=== PATIENT | female | born 1965 | race Caucasian/White ===

== ENCOUNTER → 2019-12-02 09:23 | Outpatient (BNVA) | payer OTHER, SELFPAY | PROVIDERS: PCP Internal Medicine; Visit Provider Surgery | DX: Z85.3 Personal history of malignant neoplasm of breast (principal); Z92.21 Personal history of antineoplastic chemotherapy; Z92.3 Personal history of irradiation | CPT/HCPCS: 99212 ==

== ENCOUNTER 2019-12-11 08:40 | Outpatient (REF) | payer OTHER, SELFPAY ==
[2019-12-11 10:22] LABS: Estimated Average Glucose 126 mg/dL
[2019-12-11 10:48] LABS: Alanine Aminotransferase 35 U/L (0-31); Anion Gap 13 (12-20); Aspartate Amino Transferase 20 U/L (5-31); Blood Urea Nitrogen 13 mg/dL (9-16); Calcium 8.5 mg/dL (8.4-10.2); Carbon Dioxide 27 mmol/L (22-29); Chloride 104 mmol/L (96-108); Cholesterol 158 mg/dL; Estimated Glomerular Filt Rate > 60; Glucose Fasting 119 mg/dL (60-99); HDL Cholesterol 43 mg/dL; LDL Cholesterol Calculated 87 mg/dl; Potassium 4.1 mmol/l (3.3-5.1); Sodium 140 mmol/L (135-145); Triglycerides 141 mg/dL
[2019-12-11 11:13] LABS: Creatinine Urine 164.68 mg/dL; Microalbum/Creatinine Ratio Ur 15.1 ug/mg cr
== END 2019-12-11 08:41 | disposition home or self-care (01) ==
LOC: HO.LAB 08:40
PROVIDERS: Absent Provider Internal Medicine; PCP Internal Medicine; Visit Provider Surgery
DX: E78.5 Hyperlipidemia, unspecified (principal); E66.3 Overweight; E11.9 Type 2 diabetes mellitus without complications
CPT/HCPCS: 80048; 80061; 82043; 83036; 84450; 84460

== ENCOUNTER → 2019-12-16 10:30 | Outpatient (BNV) | payer OTHER, SELFPAY | PROVIDERS: PCP Internal Medicine; Visit Provider Internal Medicine | DX: Z85.3 Personal history of malignant neoplasm of breast (principal); Z80.3 Family history of malignant neoplasm of breast; R74.01 Elevation of levels of liver transaminase levels; M85.80 Other specified disorders of bone density and structure, unspecified site | CPT/HCPCS: 99212; 99213; 99214; G2211 ==

== ENCOUNTER 2020-01-13 07:58 | Outpatient (REF) | payer OTHER, SELFPAY ==
--- NOTE | 2020-01-13 08:00 | MR_ITS ---
EXAMINATION: MR BREAST WITHOUT AND WITH CONTRAST, BILATERAL CLINICAL INFORMATION: History of right breast cancer. COMPARISON: MRI 03/21/2018, ultrasound 08/13/2019 TECHNIQUE: Imaging was performed with a dedicated breast coil. Prior to the administration of contrast, bilateral axial T1 and bilateral axial T2 weighted sequences were obtained. After the uneventful administration of?8 mL of Gadavist, dynamic contrast-enhanced VIBRANT series through the breasts in the axial plane were performed. Subtracted images were performed and reviewed. A delayed sagittal sequence through both breasts was acquired. Additionally, CAD post-processing, including maximum intensity projections, 3-D reconstructions and kinetic analysis, were performed an independent workstation and reviewed by the interpreting radiologist is a portion of this exam. FINDINGS: The patient's fibroglandular tissue demonstrates moderate background enhancement. LEFT BREAST: No suspicious masslike or non-masslike enhancement. No abnormal skin thickening or nipple retraction. No abnormal architectural distortion. Review of the T2 weighted images demonstrates no fibrocystic changes or dilated ducts. Review of kinetic images reveals no additional findings. RIGHT BREAST: There is architectural distortion in the upper outer quadrant of the right breast at the site of previous lumpectomy. There is some focal enhancement at the 11:00 position, 7.2 cm from the nipple measuring 0.5 cm in size. This is located immediately adjacent to focal scarring within the skin. Finding is consistent with postoperative change. Relative increased signal intensity of the anterior skin and the scarring in the upper-outer quadrant on the T2-weighted images is consistent with evolving posttreatment change. Review of the T2 weighted images demonstrates no fibrocystic changes or dilated ducts. Review of kinetic images reveals no additional findings. There is no suspicious internal mammary chain or axillary adenopathy. Limited views of the chest and abdomen are unremarkable. MR/MR breast BI wo/w con IMPRESSION: Evolving right upper quadrant posttreatment changes. No MR specific evidence of malignancy. ASSESSMENT: LEFT BREAST: BI-RADS 1-Negative RIGHT BREAST: BI-RADS 2 - Benign Findings. RECOMMENDATIONS: Continued annual mammographic surveillance. Further breast MRI as risk factors dictate.
== END 2020-01-13 07:59 | disposition home or self-care (01) ==
LOC: HO.MRI 07:58
PROVIDERS: Visit Provider Surgery
DX: C50.911 Malignant neoplasm of unspecified site of right female breast (principal); Z12.11 Encounter for screening for malignant neoplasm of colon; Z15.01 Genetic susceptibility to malignant neoplasm of breast
CPT/HCPCS: 77049; A9585

== ENCOUNTER 2020-01-23 08:29 | Day surgery (SDC) | payer OTHER, SELFPAY ==
[2020-01-19 10:00] VITALS: BMI 27.3
--- NOTE | 2020-01-22 08:42 | HO.ANESPROP2 ---
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 Sister Breast cancer Sister High blood pressure Surgical History Surgical History H/O colonoscopy History of lumpectomy Hx of colonoscopy S/P breast lumpectomy Social History Social History Household Members: Other Alcohol intake: current Alcohol intake frequency: holidays/special occasions only Smoking Status: Light tobacco smoker Use of substances other than those prescribed or required for medical reasons: No Have you been hit, kicked, punched, or otherwise hurt by someone within the past year? If so, by whom?: No Advance Directives: No Advance Directives Information Provided: No Meds Allergies Allergy/AdvReac Type Severity Reaction Status Date / Time omeprazole [OMEPRAZOLE] AdvReac Intermediate HEADACHE, Verified 01/19/20 09:59 DIARRHEA, diarrhea, diarrhea Home Medications Medication Instructions Recorded Confirmed Type simvastatin 20 mg PO BEDTIME 11/18/19 01/19/20 History bisacodyl 5 mg tablet,delayed 10 mg PO BEDTIME 12/19/19 12/19/19 History release blood sugar diagnostic #10 ea 12/19/19 12/19/19 History capsaicin 0.025 % topical cream 1 applic TOPICAL TID PRN 12/19/19 12/19/19 History flu vac [id number] 36mos up(PF) ml IM 12/19/19 12/19/19 History lancets 28 gauge #100 ea 12/19/19 12/19/19 History metformin 500 mg tablet,extended 500 mg PO DAILY 12/19/19 01/19/20 History release 24 hr peg 3350-electrolytes 236 ml PO 12/19/19 12/19/19 History gram-22.74 gram-6.74 gram-5.86 gram solution trastuzumab 150 mg intravenous mg IV 12/19/19 12/19/19 History solution Exam Exam Date and Time: January 22, 2020 0842 Height,Weight and Vital Signs: Height 5 ft 7 in Weight 79.4 kg Pertinent Lab Results Pertinent Lab Results: Laboratory Tests 09/23/19 12/11/19 11:45 09:15 WBC 6.6 Hgb 13.9 Hct 42.2 Plt Count 231 Sodium 140 Potassium 4.1 Chloride 104 Carbon Dioxide 27 BUN 13 Creatinine 0.68 Assessment and Plan Assessment Anesthesia Assessment: Chart Reviewed Documented by User: Chi Solo 01/23/20 08:49 PMFSH Past Medical History Medical History Diabetes mellitus Hydronephrosis Hypercholesteremia 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 Sister Breast cancer Sister High blood pressure Surgical History Surgical History H/O colonoscopy History of lumpectomy Hx of colonoscopy S/P breast lumpectomy Social History Social History Household Members: Other Alcohol intake: current Alcohol intake frequency: holidays/special occasions only Smoking Status: Light tobacco smoker Use of substances other than those prescribed or required for medical reasons: No Have you been hit, kicked, punched, or otherwise hurt by someone within the past year? If so, by whom?: No Advance Directives: No Advance Directives Information Provided: No Meds Allergies Allergy/AdvReac Type Severity Reaction Status Date / Time omeprazole [OMEPRAZOLE] AdvReac Intermediate HEADACHE, Verified 01/19/20 09:59 DIARRHEA, diarrhea, diarrhea Home Medications Medication Instructions Recorded Confirmed Type simvastatin 20 mg PO BEDTIME 11/18/19 01/19/20 History bisacodyl 5 mg tablet,delayed 10 mg PO BEDTIME 12/19/19 12/19/19 History release blood sugar diagnostic #10 ea 12/19/19 12/19/19 History capsaicin 0.025 % topical cream 1 applic TOPICAL TID PRN 12/19/19 12/19/19 History flu vac [id number] 36mos up(PF) ml IM 12/19/19 12/19/19 History lancets 28 gauge #100 ea 12/19/19 12/19/19 History metformin 500 mg tablet,extended 500 mg PO DAILY 12/19/19 01/19/20 History release 24 hr peg 3350-electrolytes 236 ml PO 12/19/19 12/19/19 History gram-22.74 gram-6.74 gram-5.86 gram solution trastuzumab 150 mg intravenous mg IV 12/19/19 12/19/19 History solution Exam Airway Mallampati Class: II TM Dist: >3cm Denture: Upper
[2020-01-23 08:56] VITALS: BP 121/73; PULSE 80; RESP 16; TEMP 36.7; O2SAT 96
[2020-01-23 08:57] LABS: Glucose, Whole Blood 133 mg/dL (60-115)
--- NOTE | 2020-01-23 09:28 | W.PM.OPN ---
Operative Note Operative Note Date of Service: 01/23/20 Narrative: Pre-op diagnosis: Screening Post-op diagnosis: other (polyps, diverticulosis, hemorrhoids) Procedure: COLONOSCOPY TO CECUM WITH BIOPSIES AND SNARE POLYPECTOMY Consent: Indications for the procedure and potential complications of bleeding, perforation, reaction to medications and missed diagnosis were discussed with the patient and informed consent was obtained. Instrument: Olympus PCF H 190 L variable stiffness pediatric colonoscope Monitoring: Vital signs and clinical assessment, intermittent blood pressure monitoring, continuous EKG monitoring, Pulse oximetry and Carbon Dioxide monitoring were done throughout the procedure. Colon withdrawl time was 27 minutes. Procedure: The patient was placed in the left lateral decubitis position and pre-procedure medications were administered. After a digital rectal examination of the ano-rectum, the video colonoscope was inserted into the rectum and advanced through the colon to the cecum. The colonoscope was slowly withdrawn in a retrograde panoramic fashion and the colon mucosa was carefully examined including a retroflexed view of the rectum. Findings and interventions are described below. Procedure Difficulty: LLQ pressure was applied to intubate the cecum. Findings: Terminal Ileum: Not evaluated Cecum: A 2-3 mm polyp removed by cold bx. Ascending Colon: Normal Transverse Colon: Normal Descending Colon: Moderate diverticulosis Sigmoid Colon: A 10 mm sessile polyp removed with a hot snare and two 3-4 mm sessile polyps removed with a cold bx. Moderate diverticulosis Rectum: Normal Ano-rectum: Small internal hemorrhoids Colon preparation: Excellent Impression and Post Procedure Diagnosis: Colonoscopy Findings: Four polyps removed Moderate diverticulosis seen in the left colon Small hemorrhoids on retroflexed exam. Plan: Await pathology results Patient has an appointment on in the GI Clinic with Tri Stewart NP . Repeat Colonoscopy interval based on path results - in 3-5 years if polyps are adenomatous and 10 years if polyps are hyperplastic. Above findings were reviewed with the patient and colon polyps and diverticulosis handouts were given in the discharge area Surgeon: Maria Victoria Caldwell MD Anesthesia: MAC (TEO Serrano & Dr Solo) Estimated blood loss (mL): 0 Pathology: other (A. Cecal polyp x 1, B. SC polyps x 3) Condition: stable Disposition: PACU
--- NOTE | 2020-01-23 09:28 | MHC.SHP ---
Pre-Procedural Eval Section A The patient is an INPATIENT: No The History & Physical has been completed within 30 days and I have reviewed it.: No Section B Chief Complaint: Screening Details of Present Illness: Pt denies GI symptoms Relevant Social History: None Present Medications: see Short Stay Collaborative assessment Medical History: Significant History (Diabetes mellitus Encounter for screening for malignant neoplasm of colon Hydronephrosis Hypercholesteremia Tubular adenoma of colon) History of Previous Operations: Relevant previous surgery/procedure and date(s) (colonoscopy 2015) Allergies: Allergies Allergy/AdvReac Type Severity Reaction Status Date / Time omeprazole [OMEPRAZOLE] AdvReac Intermediate HEADACHE, Verified 01/19/20 09:59 DIARRHEA, diarrhea, diarrhea Review of Systems Sugical H&P ROS: Negative: Constitution, Cardiovascular, Respiratory and Gastrointestinal Exam Surgical H&P Exam: Normal: Heart, Normal: Lungs, Normal: Extremities and Normal: Abdomen Plan Diagnosis/Plan: Unchanged I have reviewed the history and physical and performed a pertinent physical examination on my patient. No changes have occurred unless specified.
[2020-01-23 11:01] VITALS: BP 106/69; PULSE 69; RESP 16; TEMP 36.1; O2SAT 100
[2020-01-23 11:16] VITALS: BP 110/67; PULSE 73; RESP 18; O2SAT 96
--- NOTE | 2020-01-23 11:25 | HO.POSTANES ---
Post Anesthesia Evaluation Post Anesthesia Evaluation Vital Signs: Vital Signs Temp Pulse Resp BP Pulse Ox 01/23/20 11:16 73 18 110/67 96 01/23/20 11:01 97.0 F 69 16 106/69 100 01/23/20 08:56 98.1 F 80 16 121/73 96 Anesthesia: Monitored Mental Status: Awake Pain Control: Satisfactory Nausea/Vomiting: None Hydration: Adequate Anesthesia-Related Issues: No Anes. Related Issues
[2020-01-23 11:27] VITALS: BP 106/64; PULSE 65; RESP 16; TEMP 36.1; O2SAT 97
== END 2020-01-23 11:45 | disposition home or self-care (01) ==
PROVIDERS: PCP Internal Medicine; Visit Provider Internal Medicine Gastroenterology
PROC: 0DJD8ZZ Inspection of Lower Intestinal Tract, Via Natural or Artificial Opening Endoscopic (ICD-10-PCS; CPT 45378; principal; 2020-01-23 10:00)
DX: Z12.11 Encounter for screening for malignant neoplasm of colon (principal); K63.5 Polyp of colon; K57.30 Diverticulosis of large intestine without perforation or abscess without bleeding; K64.8 Other hemorrhoids; Z86.010 Personal history of colon polyps; E11.9 Type 2 diabetes mellitus without complications; Z79.84 Long term (current) use of oral hypoglycemic drugs
CPT/HCPCS: 45385; 45380; 82947; 88305

== ENCOUNTER → 2020-02-13 13:18 | Outpatient (BNVA) | payer OTHER, SELFPAY | PROVIDERS: PCP Internal Medicine; Visit Provider Nurse Practitioner Family | DX: Z76.89 Persons encountering health services in other specified circumstances (principal) ==

== ENCOUNTER 2020-04-26 11:04 | Emergency (ER) | payer OTHER, SELFPAY ==
[2020-04-26 11:48] VITALS: BP 119/69; PULSE 78; RESP 16; TEMP 36.1; O2SAT 96; BMI 25.8
--- NOTE | 2020-04-26 12:11 | ED.BACK ---
HPI - Back Pain/Injury General Chief Complaint: Back Pain/Injury Stated Complaint: back pain,no inj Time Seen by Provider: 04/26/20 12:02 Source: patient Mode of arrival: ambulatory Limitations: no limitations History of Present Illness HPI Narrative: 54 y/o female with history of breast cancer s/p chemotherapy, diabetes, osteoarthritis of lumbar spine, history of ruptured disc in lower back and chronic back pain presents to the ED with acute on chronic lower back pain that radiates down her legs for the last 10 - 14 days. She states this feels like her usual flare up of back pain and she has been trying her usual measures at home to treat - heat, acetaminophen and tramadol as recommended by her PCP. Her pain is not improving. She has not been able to modify her activities in the [place] and often needs to go lifting and twisting movements. She denies any recent falls or trauma. She states sometimes she requires something stronger to get her through the flare up. She denies incontinence & numbness or tingling in her groin. MD elicited complaint: back pain Pertinent past history: prior back pain Onset (ago): week(s) (2) Timing: constant and progressively worsening Severity: severe Similar Symptoms Previously: Yes Quality: burning and aching Location: lumbar spine, right lower back and right upper back Radiation: left upper leg and right upper leg Exacerbating factors: movement, sitting upright and walking Relieving factors: immobilization and movement Context: while lifting and turning/twisting Associated symptoms: denies other symptoms and difficulty walking Related Data Home Medications Medication Instructions Recorded Confirmed simvastatin 20 mg PO BEDTIME 11/18/19 01/19/20 blood sugar diagnostic #10 ea 12/19/19 03/16/20 capsaicin 0.025 % topical cream 1 applic TOPICAL TID PRN 12/19/19 03/16/20 lancets 28 gauge #100 ea 12/19/19 03/16/20 metformin 500 mg tablet,extended 500 mg PO DAILY 12/19/19 03/16/20 release 24 hr Previous Rx's Medication Instructions Recorded polyethylene glycol 3350 17 17 g PO ONCE #238 g 12/01/19 gram/dose oral powder cholecalciferol (vitamin D3) 50 2,000 unit PO DAILY #90 cap 12/19/19 mcg (2,000 unit) capsule tramadol 50 mg tablet 50 mg PO Q6-8H PRN #20 tab 12/19/19 cyclobenzaprine 5 mg PO TID PRN #10 tab 04/26/20 ibuprofen 600 mg PO Q8H PRN #15 tab 04/26/20 lidocaine [Lidoderm] 1 patch TOPICAL DAILY #15 ea 04/26/20 oxycodone 5 mg PO Q8H PRN #7 tab 04/26/20 Allergies Allergy/AdvReac Type Severity Reaction Status Date / Time omeprazole [OMEPRAZOLE] AdvReac Intermediate HEADACHE, Verified 02/13/20 13:19 DIARRHEA, diarrhea, diarrhea Review of Systems Review of Systems: Constitutional: No Fever, No Chills Cardiovascular: No Chest Pain, No SOB Gastrointestinal: No Nausea, No Vomiting, No Diarrhea, No abdominal Pain Genitourinary: No Dysuria, No Urinary Frequency, No Hematuria Musculoskeletal: + joint pain, + Myalgias Skin: No Skin Lesions, No rash Neuro: No Weakness, No Numbness PMFSH Past Medical History Attestation statement: The following information was validated with the patient. 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 Sister Breast cancer Sister High blood pressure Social History Social History (Updated 02/13/20 @ 13:21 by Milagros Narvaez CMA) Household Members: Other Alcohol intake: current Alcohol intake frequency: holidays/special occasions only Alcohol type: wine Smoking Status: Never smoker Smoked in Last 30 Days: No Use of substances other than those prescribed or required for medical reasons: No Advance Directives: No Advance Directives Information Provided: No Physical Exam Vital Signs: Vital Signs: Last Vital Signs Temp 97.0 F 04/26/20 11:48 Pulse 78 04/26/20 11:48 Resp 16 04/26/20 11:48 BP 119/69 04/26/20 11:48 Pulse Ox 96 04/26/20 11:48 Body Mass Index 25.8 Appearance: Alert. Oriented X3. No acute distress. HEENT: normal inspection CVS: Normal heart rate and rhythm. Pulses normal. Respiratory: No respiratory distress. Skin: Skin warm and dry. Normal skin color. Normal skin turgor. No rashes. Back: bilateral SI joint tenderness R>L, soft tissue tenderness of right lower lumbar area, no spinal tenderness or deformity Extremities: atratumatic, no edema Neuro: Oriented X 3. No motor deficit. No sensory deficit. Steady gait. Course Course Course Narrative: 54 y/o female presenting with acute on chronic atraumatic low back pain that radiates down her legs. No red flag symptoms of low back pain. She denies metastasis of her breast cancer, doubt pathologic fracture. She reports this feels similar to her prior episodes. Will treat with short course of narcotics, NSAID and low dose muscle relaxer until she can follow up with her PCP. She will call him this week. Instructed to return if symptoms worsen or don't improve with treatment plan. She agrees. Stable for discharge. Discharge Plan Discharge Clinical Impression: Lumbar radiculopathy Patient Disposition: Home, Self-Care Instructions: Sciatica (ED), Lower Back Exercises (ED) Additional Instructions: No bending, lifting or twisting. Use ice several times per day for 20 minutes at a time for the next 48 hours and then change to heat. Take medications as prescribed to help with pain and discomfort. STOP taking Tramadol. Do not drive after taking oxycodone or cyclobenzaprine, they can make you drowsy. Follow up with your Primary Care Doctor this week. If your pain worsens, if you develop new numbness, tingling, weakness, loss of function or incontinence call 911 or come back to the ER right away for evaluation. Prescriptions: New oxycodone 5 mg tablet 5 mg PO Q8H PRN (Reason: pain) Qty: 7 RF: 0 ibuprofen 600 mg tablet 600 mg PO Q8H PRN (Reason: pain) Qty: 15 RF: 0 cyclobenzaprine 5 mg tablet 5 mg PO TID PRN (Reason: muscle spasm) Qty: 10 RF: 0 lidocaine [Lidoderm] 5 % adhesive patch,medicated 1 patch topical DAILY Qty: 15 RF: 0 No Action simvastatin 20 mg tablet 20 mg PO BEDTIME RF: 0 metformin 500 mg tablet extended release 24 hr 500 mg PO DAILY RF: 0 (DME) lancets 28 gauge misc See Rx Instructions lancet topical BID Qty: 100 RF: 0 (DME) blood sugar diagnostic Strip See Rx Instructions strip Not Applicable BID Qty: 10 RF: 0 capsaicin 0.025 % cream 1 applic topical TID PRN (Reason: itching) RF: 0 tramadol 50 mg tablet 50 mg PO Q6-8H PRN (Reason: Pain) Qty: 20 RF: 0 cholecalciferol (vitamin D3) 50 mcg (2,000 unit) capsule 2,000 unit PO DAILY Qty: 90 RF: 1 polyethylene glycol 3350 [Miralax] 17 gram/dose powder 17 g PO ONCE Qty: 238 RF: 0 Discharge Date/Time: 04/26/20 12:28
== END 2020-04-26 12:28 | disposition home or self-care (01) ==
PROVIDERS: Emergency Provider Emergency Medicine; PCP Internal Medicine
DX: M54.16 Radiculopathy, lumbar region (principal); M54.42 Lumbago with sciatica, left side; M54.41 Lumbago with sciatica, right side; E11.9 Type 2 diabetes mellitus without complications; Z85.3 Personal history of malignant neoplasm of breast
CPT/HCPCS: 99283

== ENCOUNTER → 2020-06-17 14:06 | Outpatient (BNVA) | payer OTHER, SELFPAY | PROVIDERS: PCP Internal Medicine; Referring Provider Internal Medicine; Visit Provider Surgery | DX: C50.911 Malignant neoplasm of unspecified site of right female breast (principal) | CPT/HCPCS: 99212 ==

== ENCOUNTER 2020-06-19 07:22 | Outpatient (REF) | payer OTHER, SELFPAY ==
[2020-06-19 08:21] LABS: Alanine Aminotransferase 44 U/L (0-31); Anion Gap 11 (12-20); Aspartate Amino Transferase 20 U/L (5-31); Blood Urea Nitrogen 14 mg/dL (9-16); Calcium 8.7 mg/dL (8.4-10.2); Carbon Dioxide 28 mmol/L (22-29); Chloride 106 mmol/L (96-108); Cholesterol 139 mg/dL; Estimated Glomerular Filt Rate > 60; Glucose Fasting 138 mg/dL (60-99); HDL Cholesterol 35 mg/dL; LDL Cholesterol Calculated 87 mg/dl; Sodium 141 mmol/L (135-145); Triglycerides 86 mg/dL
[2020-06-19 08:35] LABS: Creatinine Urine 108.56 mg/dL; Microalbum/Creatinine Ratio Ur 31.3 ug/mg cr
[2020-06-19 08:44] LABS: Vitamin D 25-OH Total 43.3 ng/mL (>30)
[2020-06-19 09:42] LABS: Estimated Average Glucose 151 mg/dL; Hemoglobin A1c % 6.9 %
== END 2020-06-19 07:23 | disposition home or self-care (01) ==
LOC: HO.LAB 07:22
PROVIDERS: PCP Internal Medicine; Visit Provider Internal Medicine
DX: E11.9 Type 2 diabetes mellitus without complications (principal); E78.00 Pure hypercholesterolemia, unspecified; I10 Essential (primary) hypertension; Z78.0 Asymptomatic menopausal state
CPT/HCPCS: 36415; 80048; 80061; 82043; 82306; 83036; 84450; 84460

== ENCOUNTER 2020-07-20 10:19 | Outpatient (REF) | payer OTHER, SELFPAY ==
--- NOTE | ~2020-07-20 | MM_ITS ---
EXAMINATION: MM DIAGNOSTIC DIGITAL BREAST TOMOSYNTHESIS, BILATERAL CLINICAL INFORMATION: Right invasive ductal carcinoma status post lumpectomy 03/26/2018. Due for yearly. COMPARISON: Mammography: 07/14/2019, 03/26/2018, 03/21/2018, 03/14/2018, 02/22/2018, 02/11/2018, 02/04/2018; MRI breasts 01/13/2020. TECHNIQUE: Digital breast tomosynthesis is performed in both the craniocaudal and mediolateral oblique views along with computer-aided detection (CAD). Synthesized 2D images are generated from the tomosynthesis. Additional magnification right CC and magnification right ML views are provided. FINDINGS: The breasts are heterogeneously dense, which may obscure small masses (ACR BI-RADS breast composition Category c). Parenchymal pattern is similar to prior exam. The right breast postoperative changes are stable. There is stable scarring and mild reduced breast size and surgical clips as before. There is a port overlying the upper left axilla on MLO view and a old biopsy clip marker central 3:00 mid left breast. Neither breast shows interval mass or architectural abnormality or abnormal calcifications. The axilla are unremarkable. Results are discussed with the patient at time of visit. MM/MM tomosynthesis diagnostic BI IMPRESSION: No mammographic evidence of malignancy. Post therapy changes right breast. ASSESSMENT: BI-RADS 2: Benign RECOMMENDATION: Annual bilateral mammography. This patient's information was entered into a reminder system with a target due date for their next mammogram.
== END 2020-07-20 10:20 | disposition home or self-care (01) ==
LOC: HO.MAMMO 10:19
PROVIDERS: PCP Internal Medicine; Visit Provider Surgery
DX: C50.911 Malignant neoplasm of unspecified site of right female breast (principal); Z98.890 Other specified postprocedural states
CPT/HCPCS: 77062; 77066

== ENCOUNTER → 2020-12-21 09:10 | Outpatient (BNVA) | payer OTHER, SELFPAY | PROVIDERS: PCP Internal Medicine; Referring Provider Internal Medicine; Visit Provider Surgery | DX: C50.911 Malignant neoplasm of unspecified site of right female breast (principal) | CPT/HCPCS: 99212 ==

== ENCOUNTER 2020-12-27 06:34 | Outpatient (REF) | payer OTHER, SELFPAY ==
[2020-12-27 07:38] LABS: Alanine Aminotransferase 56 U/L (0-31); Anion Gap 12 (12-20); Aspartate Amino Transferase 25 U/L (5-31); Blood Urea Nitrogen 18 mg/dL (9-16); Calcium 8.8 mg/dL (8.4-10.2); Carbon Dioxide 27 mmol/L (22-29); Chloride 107 mmol/L (96-108); Cholesterol 148 mg/dL; Estimated Glomerular Filt Rate > 60; Glucose Fasting 148 mg/dL (60-99); HDL Cholesterol 33 mg/dL; LDL Cholesterol Calculated 89 mg/dl; Potassium 4.1 mmol/L (3.3-5.1); Sodium 142 mmol/L (135-145); Triglycerides 132 mg/dL
[2020-12-27 07:59] LABS: Vitamin D 25-OH Total 45.3 ng/mL (>30)
[2020-12-27 08:24] LABS: Estimated Average Glucose 171 mg/dL; Hemoglobin A1c % 7.6 %
== END 2020-12-27 06:35 | disposition home or self-care (01) ==
LOC: HO.LAB 06:34
PROVIDERS: PCP Internal Medicine; Visit Provider Internal Medicine
DX: E11.9 Type 2 diabetes mellitus without complications (principal); E78.00 Pure hypercholesterolemia, unspecified; Z78.0 Asymptomatic menopausal state; I10 Essential (primary) hypertension
CPT/HCPCS: 36415; 80048; 80061; 82306; 83036; 84450; 84460

== ENCOUNTER 2021-01-12 09:50 | Outpatient (REF) | payer OTHER, SELFPAY ==
--- NOTE | ~2021-01-12 | MR_ITS ---
EXAMINATION: MR BREAST WITHOUT AND WITH CONTRAST, BILATERAL CLINICAL INFORMATION: High-risk screening. History of right breast cancer, 2019. COMPARISON: MRI 01/13/2020, 03/01/2018 TECHNIQUE: Imaging was performed with a dedicated breast coil. Prior to the administration of contrast, bilateral axial T1 and bilateral axial T2 weighted sequences were obtained. After the uneventful administration of?8 mL of Gadavist, dynamic contrast-enhanced VIBRANT series through the breasts in the axial plane were performed. Subtracted images were performed and reviewed. A delayed sagittal sequence through both breasts was acquired. Additionally, CAD post-processing, including maximum intensity projections, 3-D reconstructions and kinetic analysis, were performed an independent workstation and reviewed by the interpreting radiologist is a portion of this exam. FINDINGS: The patient's fibroglandular tissue demonstrates mild background enhancement. LEFT BREAST: No suspicious masslike or non-masslike enhancement. No abnormal skin thickening or nipple retraction. No abnormal architectural distortion. Review of the T2 weighted images demonstrates no fibrocystic changes or dilated ducts. Review of kinetic images reveals no additional findings. RIGHT BREAST: There is stable post surgical changes in the upper outer quadrant of the right breast with multiple associated magnetic susceptibility foci related to surgical clips. No associated enhancement. No suspicious masslike or non-masslike enhancement. No abnormal skin thickening or nipple retraction. No abnormal architectural distortion. Review of the T2 weighted images demonstrates no fibrocystic changes or dilated ducts. Review of kinetic images reveals no additional findings. There is no suspicious internal mammary chain or axillary adenopathy. Limited views of the chest and abdomen are unremarkable. MR/MR breast BI wo/w con IMPRESSION: Stable right breast posttreatment changes. No MRI specific evidence of malignancy. ASSESSMENT: LEFT BREAST: BI-RADS 1-Negative RIGHT BREAST: BI-RADS 2 - Benign Findings. RECOMMENDATIONS: Clinical follow-up. Continued annual mammographic surveillance. Further breast MRI as risk factors dictate.
== END 2021-01-12 09:51 | disposition home or self-care (01) ==
LOC: HO.MRI 09:50
PROVIDERS: PCP Internal Medicine; Visit Provider Surgery
DX: C50.911 Malignant neoplasm of unspecified site of right female breast (principal)
CPT/HCPCS: 77049; A9585

== ENCOUNTER 2021-02-21 06:25 | Outpatient (REF) | payer OTHER, SELFPAY ==
--- NOTE | ~2021-02-21 | CT_ITS ---
EXAMINATION: CT ABDOMEN AND PELVIS WITH CONTRAST CLINICAL INFORMATION: PALB2 mutation. Increased risk of pancreatic cancer. COMPARISON: Previous CT of the abdomen and pelvis July 2019 and April 2018 TECHNIQUE: Multidetector volumetric images were obtained from the superior aspect of the liver through the pubic symphysis following administration 85 mL of Omnipaque 350 intravenous contrast. Sagittal and coronal reformatted images were obtained on the technologist's workstation. Oral contrast: Yes This CT examination was performed using dose optimization techniques as appropriate, variously including the following: *Automated exposure control *Adjustment of mA and/or kV according to patient size (this includes techniques or standardized protocols for targeted exams where dose is matched to indication/reason for exam; i.e. extremities or head) *Use of iterative reconstruction technique DLP: 434 mGy-cm FINDINGS: LUNG BASES: The visualized lung bases are unremarkable. LIVER, GALLBLADDER, AND BILIARY TREE: The liver is normal in size, shape, and attenuation. No focal hepatic lesion or biliary ductal dilatation is present. The gallbladder is unremarkable with no evidence of radiopaque gallstones, gallbladder wall thickening, or obvious pericholecystic inflammatory changes. PANCREAS: Unremarkable. SPLEEN: Unremarkable. ADRENAL GLANDS: Unremarkable. KIDNEYS AND URETERS: There is mild right hydronephrosis. 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 The kidneys are otherwise unremarkable. BLADDER: Unremarkable. GASTROINTESTINAL TRACT: The small and large bowel are unremarkable. The appendix is unremarkable. The stomach is unremarkable. ABDOMINAL WALL: No significant hernia is appreciated. LYMPH NODES: There is fat stranding of the small bowel mesentery and slightly enlarged small bowel mesentery lymph nodes. This does not appear appreciably changed from previous exams going back to April 2018. VASCULAR: Unremarkable. PELVIC VISCERA: Unremarkable. OSSEOUS STRUCTURES: Unremarkable. CT/CT abdomen pelvis w con IMPRESSION: Normal-appearing pancreas. Stable small bowel mesentery fat stranding and prominent small bowel mesentery lymph nodes from prior exams. 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 Fleischner guidelines were followed.
[2021-02-21] MEDS: iohexoL 350 MG/ML 100 ML INFUS..BTL IV (09:01)
[2021-02-21] MEDS: Barium Sulfate Oral (Vanilla) 450 ML ORAL.SUSP 900 ML PO (09:02)
== END 2021-02-21 06:26 | disposition home or self-care (01) ==
LOC: HO.CT 06:25
PROVIDERS: PCP Internal Medicine; Visit Provider Internal Medicine
DX: C50.919 Malignant neoplasm of unspecified site of unspecified female breast (principal); R94.5 Abnormal results of liver function studies; Z15.02 Genetic susceptibility to malignant neoplasm of ovary; Z15.09 Genetic susceptibility to other malignant neoplasm; Z15.89 Genetic susceptibility to other disease
CPT/HCPCS: 74177; Q9967

== ENCOUNTER 2021-03-18 08:38 | Outpatient (REF) | payer OTHER, SELFPAY ==
[2021-03-18 11:39] LABS: Estimated Average Glucose 200 mg/dL; Hemoglobin A1c % 8.6 %
[2021-03-18 12:31] LABS: Creatinine Urine 152.57 mg/dL; Microalbum/Creatinine Ratio Ur 41.9 ug/mg cr
== END 2021-03-18 08:39 | disposition home or self-care (01) ==
LOC: HO.HMGCLDS 08:38
PROVIDERS: Visit Provider Internal Medicine
DX: E11.9 Type 2 diabetes mellitus without complications (principal)
CPT/HCPCS: 36415; 82043; 83036

== ENCOUNTER → 2021-06-21 09:12 | Outpatient (BNVA) | payer OTHER, SELFPAY | PROVIDERS: PCP Internal Medicine; Visit Provider Surgery | DX: C50.911 Malignant neoplasm of unspecified site of right female breast (principal) | CPT/HCPCS: 99212 ==

== ENCOUNTER 2021-06-30 07:25 | Outpatient (REF) | payer OTHER, SELFPAY ==
[2021-06-30 08:47] LABS: Estimated Average Glucose 171 mg/dL; Hemoglobin A1c % 7.6 %
[2021-06-30 09:10] LABS: Alanine Aminotransferase 62 U/L (0-31); Anion Gap 13 (12-20); Aspartate Amino Transferase 30 U/L (5-31); Blood Urea Nitrogen 15 mg/dL (9-16); Carbon Dioxide 24 mmol/L (22-29); Chloride 106 mmol/L (96-108); Cholesterol 147 mg/dL; Estimated Glomerular Filt Rate > 60; Glucose Fasting 186 mg/dL (60-99); HDL Cholesterol 36 mg/dL; LDL Cholesterol Calculated 92 mg/dl; Potassium 4.2 mmol/L (3.3-5.1); Sodium 139 mmol/L (135-145); Triglycerides 96 mg/dL
[2021-06-30 10:37] LABS: Microalbum/Creatinine Ratio Ur 32.6 ug/mg cr
== END 2021-06-30 07:26 | disposition home or self-care (01) ==
LOC: HO.LAB 07:25
PROVIDERS: PCP Internal Medicine; Visit Provider Internal Medicine
DX: E11.9 Type 2 diabetes mellitus without complications (principal); E78.00 Pure hypercholesterolemia, unspecified; Z78.0 Asymptomatic menopausal state
CPT/HCPCS: 36415; 80048; 80061; 82043; 82306; 83036; 84450; 84460

== ENCOUNTER 2021-07-25 10:54 | Outpatient (REF) | payer OTHER, SELFPAY ==
--- NOTE | ~2021-07-25 | MM_ITS ---
EXAMINATION: MM DIAGNOSTIC DIGITAL BREAST TOMOSYNTHESIS, BILATERAL CLINICAL INFORMATION: Due for yearly. History right invasive ductal cancer, lumpectomy 03/26/2018. COMPARISON: Mammography: 07/20/2020, 07/14/2019, 03/26/2018, 03/21/2018, 02/04/2018 TECHNIQUE: Digital breast tomosynthesis is performed in both the craniocaudal and mediolateral oblique views along with computer-aided detection (CAD). Synthesized 2D images are generated from the tomosynthesis. Additional magnification right CC and magnification right ML views are obtained. FINDINGS: There are scattered areas of fibroglandular density (ACR BI-RADS breast composition Category b). Breast parenchymal pattern borders on heterogeneously dense. Parenchymal pattern is similar to prior studies and there is no interval mass or architectural abnormality. No abnormal calcifications. There is biopsy clip marker again seen central 3:00 mid left breast. And a port again noted overlying high left axilla. There are post therapy changes again noted on the right with old scarring and surgical clips. There are no significant changes bilateral breasts. Results are provided to the patient at time of visit by the technologist. MM/MM tomosynthesis diagnostic BI IMPRESSION: No significant changes from prior studies. Post therapy changes right breast. ASSESSMENT: BI-RADS 2: Benign RECOMMENDATION: Annual bilateral mammography. This patient's information was entered into a reminder system with a target due date for their next mammogram.
== END 2021-07-25 10:55 | disposition home or self-care (01) ==
LOC: HO.MAMMO 10:54
PROVIDERS: PCP Internal Medicine; Visit Provider Surgery
DX: Z85.3 Personal history of malignant neoplasm of breast (principal)
CPT/HCPCS: 77062; 77066

== ENCOUNTER 2021-12-20 08:48 | Outpatient (REF) | payer OTHER, SELFPAY ==
[2021-12-20 09:29] LABS: Estimated Average Glucose 223 mg/dL; Hemoglobin A1c % 9.4 %
[2021-12-20 09:45] LABS: Alanine Aminotransferase 64 U/L (0-31); Anion Gap 14 (12-20); Aspartate Amino Transferase 32 U/L (5-31); Blood Urea Nitrogen 14 mg/dL (9-16); Calcium 9.1 mg/dL (8.4-10.2); Carbon Dioxide 25 mmol/L (22-29); Chloride 104 mmol/L (96-108); Cholesterol 201 mg/dL; Estimated Glomerular Filt Rate > 60; Glucose Fasting 233 mg/dL (60-99); HDL Cholesterol 43 mg/dL; LDL Cholesterol Calculated 138 mg/dl; Sodium 139 mmol/L (135-145); Triglycerides 104 mg/dL
[2021-12-20 10:44] LABS: Creatinine Urine 144.66 mg/dL; Microalbum/Creatinine Ratio Ur 27.6 ug/mg cr
== END 2021-12-20 08:49 | disposition home or self-care (01) ==
LOC: HO.LAB 08:48
PROVIDERS: PCP Internal Medicine; Visit Provider Internal Medicine
DX: C50.911 Malignant neoplasm of unspecified site of right female breast (principal); E11.9 Type 2 diabetes mellitus without complications; E78.00 Pure hypercholesterolemia, unspecified; Z79.899 Other long term (current) drug therapy
CPT/HCPCS: 36415; 80048; 80061; 82043; 82306; 83036; 84450; 84460; 99212

== ENCOUNTER 2022-03-22 06:38 | Outpatient (REF) | payer OTHER, SELFPAY ==
[2022-03-22 07:34] LABS: Estimated Average Glucose 203 mg/dL; Hemoglobin A1c % 8.7 %
[2022-03-22 08:04] LABS: Alanine Aminotransferase 36 U/L (0-31); Anion Gap 14 (12-20); Aspartate Amino Transferase 19 U/L (5-31); Blood Urea Nitrogen 15 mg/dL (9-16); Calcium 9.2 mg/dL (8.4-10.2); Carbon Dioxide 24 mmol/L (22-29); Chloride 106 mmol/L (96-108); Cholesterol 143 mg/dL; Estimated Glomerular Filt Rate > 60; Glucose Fasting 188 mg/dL (60-99); HDL Cholesterol 39 mg/dL; LDL Cholesterol Calculated 84 mg/dl; Sodium 140 mmol/L (135-145); Triglycerides 101 mg/dL
[2022-03-22 08:20] LABS: Vitamin D 25-OH Total 44.8 ng/mL (>30)
== END 2022-03-22 06:39 | disposition home or self-care (01) ==
LOC: HO.LAB 06:38
PROVIDERS: PCP Internal Medicine; Visit Provider Internal Medicine
DX: E11.65 Type 2 diabetes mellitus with hyperglycemia (principal); E78.00 Pure hypercholesterolemia, unspecified
CPT/HCPCS: 36415; 80048; 80061; 82306; 83036; 84450; 84460

== ENCOUNTER 2022-06-20 06:42 | Outpatient (REF) | payer OTHER, SELFPAY ==
[2022-06-20 07:55] LABS: Estimated Average Glucose 177 mg/dL; Hemoglobin A1c % 7.8 %
[2022-06-20 08:24] LABS: Alanine Aminotransferase 34 U/L (0-31); Anion Gap 14 (12-20); Aspartate Amino Transferase 18 U/L (5-31); Blood Urea Nitrogen 13 mg/dL (9-16); Calcium 8.9 mg/dL (8.4-10.2); Carbon Dioxide 24 mmol/L (22-29); Chloride 106 mmol/L (96-108); Cholesterol 151 mg/dL; Estimated Glomerular Filt Rate > 60; Glucose Fasting 172 mg/dL (60-99); HDL Cholesterol 38 mg/dL; LDL Cholesterol Calculated 92 mg/dl; Sodium 140 mmol/L (135-145); Triglycerides 108 mg/dL
== END 2022-06-20 06:43 | disposition home or self-care (01) ==
LOC: HO.LAB 06:42
PROVIDERS: PCP Internal Medicine; Visit Provider Internal Medicine
DX: C50.911 Malignant neoplasm of unspecified site of right female breast (principal); E11.65 Type 2 diabetes mellitus with hyperglycemia; E78.00 Pure hypercholesterolemia, unspecified
CPT/HCPCS: 36415; 80048; 80061; 83036; 84450; 84460; 99212

== ENCOUNTER 2022-06-28 10:42 | Outpatient (AMB) | payer OTHER, SELFPAY ==
--- NOTE | 2022-06-28 11:00 | A.OFFPC_ITS ---
Vital Signs 06/28/22 11:33 Height 5 ft 8 in Weight 175 lb BMI 26.6 BP 122/88 Blood Pressure Location Lt brachial Position Sitting Pulse 77 Pulse Source Pulse Oximeter Pulse Oximetry (%) 98 Oxygen Delivery Method Room Air Intake Visit Reasons: 3 Month Follow UP DM, Lipids Intake Note: Pt is here today for her 3 months DM and lipids Allergies omeprazole [OMEPRAZOLE] Adverse Reaction (Intermediate, Verified 10/02/22 13:40) HEADACHE, DIARRHEA Medication List - Last Reconciled 06/28/22 by Bonnie Denton MD acetaminophen 650 mg PO Q6H PRN blood sugar diagnostic (FreeStyle Lite Strips) Check Blood sugar 2 times a day; cholecalciferol (vitamin D3) 50 mcg PO DAILY lancets As directed metformin ER 500 mg PO BID 90 days simvastatin 20 mg PO BEDTIME Tobacco use date assessed: 06/28/22 HPI 3 Month Follow UP DM, Lipids HPI0 Details 56-year-old lady here today for follow-up on her diabetes mellitus and dyslipidemia. Currently has been compliant with her medications, states that s he is always busy and on the go. Latest labs showed normal lipids, electrolytes, renal function, but hemoglobin A1c is at 7.8%. 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 Sister Breast cancer Sister High blood pressure Social History Household Members: Other Household Members Other:: Lives in a yazidi community Housing: Other Housing Other:: community Are you a primary rn intensive care unit to a significant other at home: No Do you presently have visiting nurse or other home services: No Alcohol intake: current Alcohol intake frequency: holidays/special occasions only Alcohol type: wine Patient Tobacco Use Status: Never used Tobacco e-Cigarette/Vaping Use: Never Used service: No Current occupational status: employed Cognitive needs: No Hearing needs: No Vision needs: Yes Questionnaire PHQ-9 Over the last 2 weeks, how often have you been bothered by any of the following problems? Depression Screening Interpretation: Negative Source: Developed by Drs. Xander Waters, Lashay Forde, Mando Gomez and colleagues, with an educational khadra from [employer]. Thrive Questionnaire Date Thrive assessed: 03/27/22 AIME-7 AMB Questionnaire AIME-7 Date AIME - 7 assessed: 03/27/22 Source: Developed by Drs. Xander Waters, Lashay Forde, Mando Gomez and colleagues, with an educational khadra from [employer]. Review of Systems Const Denies fever(s), Denies headache(s) and Denies weakness Eyes Denies change in vision ENT Reports Normal hearing present, Denies dizziness, Denies headache(s), Denies nasal congestion and Denies nasal discharge Card Denies chest pain, Denies lightheadedness, Denies palpitations and Denies dyspnea Resp Denies chest congestion, Denies cough and Denies dyspnea GI Denies abdominal pain, Denies change in bowel habits and Denies heartburn Denies dysuria Musc Denies abnormal gait, Denies back pain, Denies myalgias, Denies arthralgias, Denies joint swelling, Denies muscle weakness and Denies numbness Skin/Breast Denies lesions and Denies rash Neuro Reports Normal hearing present, Denies abnormal gait, Denies dizziness, Denies headache(s), Denies numbness, Denies Sensory deficit (Neuro) and Denies weakness Endo Denies cold intolerance, Denies polyphagia, Denies polydipsia, Denies polyuria and Denies palpitations Edson/Lymph Reports no additional complaints Physical exam (Primary Care) Vital Signs: Last Vital Signs Pulse 77 06/28/22 11:33 BP 122/88 06/28/22 11:33 Pulse Ox 98 06/28/22 11:33 Oxygen Delivery Method Room Air 06/28/22 11:33 BMI result Body Mass Index 26.6 Tobacco/Smoking Status: Tobacco use Status Tobacco use date assessed 06/28/22 06/28/22 11:35 Patient Tobacco Use Status Never used Tobacco 06/28/22 11:03 e-Cigarette/Vaping Use Never Used 06/28/22 11:03 Depression Screening Interpretation: Negative Thrive Assessment: Date of Thrive Assessment Date Thrive assessed 03/27/22 06/28/22 11:03 Const Other: Alert oriented x3, no acute distress noted ambulatory with normal gait Orientation/consciousness: patient oriented x3 HENDC Head: Yes normocephalic and Yes atraumatic Ears: hearing grossly normal bilaterally, external ears normal, TM's normal bilaterally and EAC's normal General nose exam: Normal external nose present Face and sinus: Yes face symmetric Mouth: Normal oral and palatal mucosa present, tongue normal, oropharynx normal and moist mucous membranes Eyes General: appearance normal, both eyes and all related structures Neck Neck: Yes no lymphadenopathy, Yes no meningeal signs and Yes supple Thyroid: other (Nonpalpable) Resp Auscultation: clear to auscultation bilaterally Cardio Other: S1-S2 present regular rate and rhythm GI Other: Normal bowel sounds, soft, nontender, no mass palpated Back/Spine/Pelvis Back: No back tenderness Skin General skin exam: no rashes or lesions noted Neuro General: patient oriented x3, gait normal, tone normal, moves all extremities, Normal light touch and pain sensation, no meningeal signs, no focal motor deficits and CN's II-XI intact bilaterally Cranial nerves: Yes Normal hearing present Gait exam (Neuro): Normal gait present Motor exam (neuro): 5/5 motor strength present throughout Sensory Exam: No Sensory deficit (Neuro) Extrem General: Yes full ROM, Yes no joint enlargement, Yes no pedal edema, Yes no calf tenderness and Yes normal gait Results Reviewed Results Reviewed: RUN: 06/28/22 1145 PAGE 1 [facility] [address] [place] [id number] Mission Assessment Specialist: Dane Wood M.D. Specimen Inquiry Name: Herrera Terrell SR Age/Sex: 56/F [facility] 1965 [id number] Unit#: [id number] Attend Dr: Bonnie Denton MD Re06/20/22 Status: DEP [facility]F [facility] Disch: SPEC : [id number] GIA: 06/20/22 STATUS: COMP REQ : [id number] RECD: 06/20/[address]: Bonnie Denton MD COMP: 06/20/22 ENTERED: 06/20/[address] [facility] [address]: ORDERED: Met Prof Fast, AST, ALT, Lipid Panel Test Result Flag Reference Site Sodium 140 135-145 mmol/L Potassium 4.0 3.3-5.1 mmol/L CL 106 96-108 mmol/L CO2 24 22-29 mmol/L Gap 14 12-20 BUN 13 9-16 mg/dL Creat 0.68 0.5-1.4 mg/dL EGFR > 60 NOTE: For -[place] individuals, multiply the result by 1.210. Chronic Kidney Disease: Estimated GFR < 60 mL/min/1.73m2 Severe Kidney Disease: Estimated GFR < 15 mL/min/1.73m2 FBS 172 H 60-99 mg/dL A fasting glucose of 126 mg/dl or greater on more than one occasion is considered diagnostic of diabetes. CA 8.9 8.4-10.2 mg/dL AST (GOT) 18 5-31 U/L ALT (GPT) 34 H 0-31 U/L Triglyceride 108 mg/dL Desirable Triglyceride: less than 150 mg/dL Borderline High Triglyceride 150-199 mg/dL High Triglyceride: 200-499 mg/dL Very High Triglyceride: greater than or equal to 5OO mg/dL Chol 151 mg/dL Desirable Cholesterol: less than 200 mg/dL Borderline High Cholesterol: 200-239 mg/dL High Cholesterol: greater than 239 mg/dL LDL Calculated 92 mg/dl Desirable LDL: less than 100 mg/dL Near Optimal/Above Optimal LDL: 110-129 mg/dL Borderline High LDL: 130-159 mg/dL High LDL: 160-189 mg/dL Very High LDL: greater than or equal to 190 mg/dL HDL 38 mg/dL Desirable HDL: greater than 40 mg/dL Note: This HDL assay may give artificially low results in patients with liver disease. Laboratory Tests 06/20/22 06:50 Estimat Average Glucose 177 Hemoglobin A1c % 7.8 Assessment and Plan Assessment & Plan (1) Hypercholesteremia: Code(s): E78.00 - Pure hypercholesterolemia, unspecified Plan: Reviewed recent fasting lipid profile with patient with levels within normal limits . Continue with simvastatin 20 mg daily at bedtime , in addition to adherence to low-cholesterol diet and regular exercise, at least 30 minutes 3 to 4 times a week. Advised patient to make healthy food choices, eat more fruits, vegetables, whole grains, wild caught fish and low-fat dairy. Limit amount of meat and fried or fatty food products, as well as processed foods and fast foods. Follow-up scheduled with repeat fasting lipid panel in 3 months. (2) Diabetes mellitus with hyperglycemia, without long-term current use of insulin: Code(s): E11.65 - Type 2 diabetes mellitus with hyperglycemia Plan: Increase metformin dose to 500 mg in the morning with breakfast and 750 mg at night with supper time. Reinforced adherence to diabetic diet and getting regular exercise. Reminded to get yearly diabetes eye exam. Will repeat hemoglobin A1c again in 3 months Orders: Orders Hemoglobin A1c 3 Months E78.00 - Pure hypercholesterolemia, unspecified, E11.9 - Type 2 diabetes mellitus without complications Lipid Panel 3 Months E78.00 - Pure hypercholesterolemia, unspecified, E11.9 - Type 2 diabetes mellitus without complications Basic Metabolic Panel Fasting 3 Months E78.00 - Pure hypercholesterolemia, unspecified, E11.9 - Type 2 diabetes mellitus without complications Aspartate Amino Transferase 3 Months E78.00 - Pure hypercholesterolemia, unspecified, E11.9 - Type 2 diabetes mellitus without complications Alanine Aminotransferase 3 Months E78.00 - Pure hypercholesterolemia, unspecified, E11.9 - Type 2 diabetes mellitus without complications Medications: Changed From metformin ER 500 mg PO BID 90 days 180 tabs 1RF E11.65 - Type 2 diabetes mellitus with hyperglycemia To metformin ER Stat take 500 mg of metformin in the morning with breakfast and 750 mg metformin or 1 and half tablets at night with supper 180 tabs 1RF 90 days E11.65 - Type 2 diabetes mellitus with hyperglycemia From metformin ER Stat take 500 mg of metformin in the morning with breakfast and 750 mg metformin or 1 and half tablets at night with supper 90 days 180 tabs 1RF E11.65 - Type 2 diabetes mellitus with hyperglycemia To metformin ER Stat take 500 mg of metformin in the morning with breakfast and 750 mg metformin or 1 and half tablets at night with supper 225 tabs 3RF 90 days E11.65 - Type 2 diabetes mellitus with hyperglycemia From lancets As directed 100 ea E11.65 - Type 2 diabetes mellitus with hyperglycemia To lancets Check blood sugar twice a day before meals Check blood sugar twice a day before meals 100 ea 6RF E11.65 - Type 2 diabetes mellitus with hyperglycemia Coding Level of Care Code Est Pt Level 3 (84805) Diagnoses Hypercholesteremia E78.00 Diabetes mellitus with hyperglycemia, without long-term current use of insulin E11.65
[2022-06-28 11:33] VITALS: BP 122/88; PULSE 77; O2SAT 98; BMI 26.6
== END 2022-06-28 12:00 | disposition home or self-care (01) ==
LOC: HO.HMGC 10:42
PROVIDERS: PCP Internal Medicine; Visit Provider Internal Medicine
DX: E78.00 Pure hypercholesterolemia, unspecified (principal); E11.65 Type 2 diabetes mellitus with hyperglycemia
CPT/HCPCS: 99213

== ENCOUNTER 2022-08-01 09:11 | Outpatient (REF) | payer OTHER, SELFPAY ==
--- NOTE | ~2022-08-01 | MM_ITS ---
EXAMINATION: MM SCREENING DIGITAL BREAST TOMOSYNTHESIS, BILATERAL CLINICAL INFORMATION: Right breast IDC status post lumpectomy 03/26/2018. Due for yearly. COMPARISON: Prior breast imaging exams including most recent mammography 07/25/2021. TECHNIQUE: Digital breast tomosynthesis is performed in both the craniocaudal and mediolateral oblique views along with computer-aided detection (CAD). Synthesized 2D images are generated from the tomosynthesis. FINDINGS: The breasts are heterogeneously dense, which may obscure small masses (ACR BI-RADS breast composition Category c). Breast tissue composition borders on average fibroglandular. There are post therapy changes on the right with reduced breast size and scarring and surgical clips. Port is partly in [id number] upper left axilla on MLO view. There is a biopsy clip marker mid 3:00 left breast. There are no significant masses, abnormal calcifications, or other abnormalities. The axilla are unremarkable. No significant changes from prior exams. MM/MM tomosynthesis screening BI IMPRESSION: -No mammographic evidence of malignancy. -Post therapy changes right breast. ASSESSMENT: BI-RADS 2: Benign RECOMMENDATION: Routine annual mammography screening. This patient's information was entered into a reminder system with a target due date for their next mammogram.
== END 2022-08-01 09:12 | disposition home or self-care (01) ==
LOC: HO.MAMMO 09:11
PROVIDERS: PCP Internal Medicine; Visit Provider Surgery
DX: Z12.31 Encounter for screening mammogram for malignant neoplasm of breast (principal)
CPT/HCPCS: 77063; 77067

== ENCOUNTER 2022-09-28 07:07 | Outpatient (REF) | payer OTHER, SELFPAY ==
[2022-09-28 08:10] LABS: Estimated Average Glucose 146 mg/dL; Hemoglobin A1c % 6.7 % (<6.0)
[2022-09-28 08:27] LABS: Alanine Aminotransferase 40 U/L (0-31); Anion Gap 11 (12-20); Aspartate Amino Transferase 20 U/L (5-31); Blood Urea Nitrogen 16 mg/dL (9-16); Calcium 9.5 mg/dL (8.4-10.2); Carbon Dioxide 27 mmol/L (22-29); Chloride 107 mmol/L (96-108); Cholesterol 148 mg/dL (<200); Estimated Glomerular Filt Rate > 60; Glucose Fasting 136 mg/dL (60-99); HDL Cholesterol 40 mg/dL (>40); LDL Cholesterol Calculated 87 mg/dL (<100); Potassium 3.9 mmol/L (3.3-5.1); Sodium 141 mmol/L (135-145); Triglycerides 106 mg/dL (<150)
== END 2022-09-28 07:08 | disposition home or self-care (01) ==
LOC: HO.LAB 07:07
PROVIDERS: PCP Internal Medicine; Visit Provider Internal Medicine
DX: E11.9 Type 2 diabetes mellitus without complications (principal); E78.00 Pure hypercholesterolemia, unspecified
CPT/HCPCS: 36415; 80048; 80061; 83036; 84450; 84460

== ENCOUNTER 2022-09-29 09:38 | Emergency (ER) | payer OTHER, SELFPAY ==
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
[2022-09-29 09:46] VITALS: BP 148/86; BP 150/93; PULSE 108; PULSE 96; RESP 17; TEMP 36.8; O2SAT 95; O2SAT 97; BMI 26.8
--- NOTE | 2022-09-29 09:53 | ECG_ITS ---
Test Reason : CHEST PAIN Blood Pressure : / mmHG Vent. Rate : 087 BPM Atrial Rate : 087 BPM P-R Int : 154 ms QRS Dur : 076 ms QT Int : 394 ms P-R-T Axes : 046 048 067 degrees QTc Int : 474 ms Normal sinus rhythm Normal ECG When compared with ECG of 05-JUN-2013 07:22, No significant change was found Referred By: Generic ED Physician Electronically Signed By:AISHA MOHAMUD
[2022-09-29 10:26] VITALS: BP 141/91; PULSE 86; RESP 16; TEMP 36.8; O2SAT 94
[2022-09-29 11:18] LABS: Glucose, Whole Blood 211 mg/dL (60-115)
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
[2022-09-29 14:21] LABS: Anion Gap 12 (12-20)
[2022-09-29 14:25] LABS: Alanine Aminotransferase 37 U/L (0-31); Albumin Level 4.1 g/dL (3.5-5.0); Alkaline Phosphatase 70 U/L (39-117); Aspartate Amino Transferase 19 U/L (5-31); Bilirubin Total 0.3 mg/dL (0.0-1.0); Blood Urea Nitrogen 13 mg/dL (9-16); Calcium 9.3 mg/dL (8.4-10.2); Carbon Dioxide 25 mmol/L (22-29); Chloride 107 mmol/L (96-108); Creatinine Clr Calc Pharmacy 107.5; Estimated Glomerular Filt Rate > 60; Glucose Random 126 mg/dL (60-115); Magnesium 1.9 mg/dL (1.6-2.6); Potassium 3.7 mmol/L (3.3-5.1); Sodium 140 mmol/L (135-145); Total Protein 7.2 g/dL (6.5-8.0)
[2022-09-29] MEDS: iohexoL 350 MG/ML 100 ML INFUS..BTL 65 ML IV (15:14)
[2022-09-29 15:36] VITALS: BP 148/102; PULSE 76; RESP 16; TEMP 36.7; O2SAT 98
[2022-09-29 15:40] LABS: Troponin-I High Sensitivity < 2.7 ng/L (<3.5-17.0)
--- NOTE | 2022-09-29 15:42 | MHC.EDTECH ---
THIS PCT ASSUMED CARE OF PT AT 1500 ,VITALS SIGN TAKEN AND CBC DRAWN AND SENT TO LAB .
[2022-09-29 15:46] LABS: Basophils Percent Auto 0.5 % (0-2); Eosinophils Absolute Auto 0.2 X10*3/uL (0.0-0.4); Hematocrit 42.8 % (37.0-47.0); Hemoglobin 14.5 g/dl (12.0-16.0); Imm Gran Abs Auto 0.04 X10*3/uL (0.00-0.03); Imm Gran Pct Auto 0.5 % (0.0-0.4); Lymphocytes Percent Auto 26.7 % (20-40); Mean Corpuscular HGB Conc 33.9 g/dl (31.0-35.0); Mean Corpuscular Hemoglobin 29.8 pg (27.0-33.0); Mean Corpuscular Volume 87.9 fL (80.0-98.0); Monocytes Absolute Auto 0.6 X10*3/uL (0.1-1.2); Monocytes Percent Auto 7.8 % (2-11); Neutrophils Absolute Auto 4.7 x10*3/uL (2.0-8.3); Neutrophils Percent Auto 62.5 % (45-73); Platelet Count 223 X10*3/uL (160-400); Red Blood Count 4.87 X10*6/uL (4.20-5.50); White Blood Count 7.5 X10*3/uL (4.8-10.8)
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
[2022-09-29 16:48] LABS: MANUAL DIFF FLAG NO
--- NOTE | 2022-09-29 16:59 | PC.NURSE ---
PCP is Leena Denton MD in [place], [place]
== END 2022-09-29 17:03 | disposition home or self-care (01) ==
PROVIDERS: Physician Assistant; Emergency Provider Emergency Medicine Emergency Medical Services; PCP Internal Medicine
DX: S13.4XXA Sprain of ligaments of cervical spine, initial encounter (principal); S06.0X0A Concussion without loss of consciousness, initial encounter; R07.89 Other chest pain; E04.1 Nontoxic single thyroid nodule; M54.2 Cervicalgia; R51.9 Headache, unspecified; M54.6 Pain in thoracic spine; V43.52XA Car driver injured in collision with other type car in traffic accident, initial encounter; Y93.9 Activity, unspecified; Y92.410 Unspecified street and highway as the place of occurrence of the external cause; Y99.9 Unspecified external cause status; Z79.899 Other long term (current) drug therapy
CPT/HCPCS: 36415; 70450; 71045; 71260; 72125; 80053; 82947; 83735; 84484; 85025; 93005; 99284; Q9967

== ENCOUNTER 2022-10-02 12:48 | Outpatient (AMB) | payer OTHER, SELFPAY ==
[2022-10-02 12:51] VITALS: BP 142/80; PULSE 85; O2SAT 96; BMI 26.8
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
== END 2022-10-02 14:21 | disposition home or self-care (01) ==
PROVIDERS: Visit Provider Internal Medicine
DX: E04.1 Nontoxic single thyroid nodule (principal); E78.00 Pure hypercholesterolemia, unspecified; E11.9 Type 2 diabetes mellitus without complications
CPT/HCPCS: 99214

== ENCOUNTER 2022-10-10 11:39 | Outpatient (REF) | payer OTHER, SELFPAY ==
--- NOTE | ~2022-10-10 | US_ITS ---
EXAMINATION: US THYROID CLINICAL INFORMATION: Nontoxic single thyroid nodule. COMPARISON: CT soft tissue neck 07/09/2018. TECHNIQUE: Linear transducer grayscale and color Doppler examination with attention to the region of the thyroid. FINDINGS: SIZE: Measurements of the thyroid lobes and nodules are given in sagittal, anteroposterior and transverse dimensions respectively. Right Thyroid Lobe: 4.9 x 1.4 x 1.8 cm, volume 6.7 mL. Parenchyma: The gland echotexture is homogeneous. Thyroid vascularity is increased. Left Thyroid Lobe: 6.0 x 1.7 x 2.2 cm, volume 11.5 mL. Parenchyma: The gland echotexture is heterogeneous. Thyroid vascularity is increased. Isthmus: 0.3 cm in maximum AP dimension. Estimated total number of nodules greater than or equal to 1 cm: 3. [employer] nodules are described as follows: 1. Location: Right mid. Size: 0.7 x 0.6 x 0.5 cm, volume 0.1 mL. Nodule characteristics: Composition: Mixed cystic and solid (1). Echogenicity: Hypoechoic (2). Shape: Taller than wide (3). Margins: Smooth (0). Echogenic Foci: Peripheral calcifications (2). ACR TI-RADS total points: 8 ACR TI-RADS category: 5 2. Location: Left superior. Size: 1.3 x 0.8 x 1.4 cm, volume 0.8 mL. Nodule characteristics: Composition: Mixed cystic and solid (1). Echogenicity: Hypoechoic (2). Shape: Not taller than wide (0). Margins: Smooth (0). Echogenic Foci: None (0). ACR TI-RADS total points: 3 ACR TI-RADS category: 3 3. Location: Left mid. Size: 0.9 x 0.4 x 0.7 cm, volume 0.2 mL. Nodule characteristics: Composition: Spongiform (0). Echogenicity: Hypoechoic (2). Shape: Not taller than wide (0). Margins: Smooth (0). Echogenic Foci: None (0). ACR TI-RADS total points: 2 ACR TI-RADS category: 2 4. Location: Left inferior. Size: 1.8 x 0.9 x 1.9 cm, volume 1.6 mL. Nodule characteristics: Composition: Solid/almost completely solid (2). Echogenicity: Hypoechoic (2). Shape: Not taller than wide (0). Margins: Smooth (0). Echogenic Foci: Punctate echogenic foci (3). ACR TI-RADS total points: 7 ACR TI-RADS category: 5 5. Location: Left inferior. Size: 1.9 x 1.4 x 1.7 cm, volume 2.4 mL. Nodule characteristics: Composition: Solid (2). Echogenicity: Hypoechoic (2). Shape: Not taller than wide (0). Margins: Smooth (0). Echogenic Foci: None (0). ACR TI-RADS total points: 4 ACR TI-RADS category: 4 NODES: No lymphadenopathy is seen in the tissue surrounding the thyroid gland. US/US thyroid IMPRESSION: FNA is recommended of left inferior nodules. Routine sonographic surveillance of right mid nodule. ACR TI-RADS RECOMMENDATION REFERENCE: Ultrasound-guided fine-needle aspiration, followup ultrasound, no further follow up. * TR1 (0 point) and TR2 (2 points): No FNA or follow up. * TR3 (3 points): FNA if more than or equal to 2.5 cm in maximum dimension, followup ultrasound in 1, 3 and 5 years if 1.5 to 2.4 cm in maximum dimension. * TR4 (4-6 points): FNA if more than or equal to 1.5 cm in maximum dimension, followup ultrasound in 1, 2, 3 and 5 years if 1 to 1.4 cm in maximum dimension. * TR5 (more than or equal to 7 points): FNA if more than or equal to 1 cm in maximum dimension, followup ultrasound every year for 5 years if 0.5 to 0.9 cm in maximum dimension. * TR3, TR4 or TR5 nodules that are below the size threshold for followup receive no follow up.
== END 2022-10-10 11:40 | disposition home or self-care (01) ==
LOC: HO.HMGCX 11:39
PROVIDERS: PCP Internal Medicine; Visit Provider Internal Medicine
DX: E04.1 Nontoxic single thyroid nodule (principal)
CPT/HCPCS: 76536

== ENCOUNTER 2022-10-10 17:02 | Emergency (ER) | payer OTHER, SELFPAY ==
--- NOTE | ~2022-10-10 | CT_ITS ---
EXAMINATION: CT HEAD WITHOUT CONTRAST CLINICAL INFORMATION: Dizziness COMPARISON: Previous head CT September 2022 TECHNIQUE: Contiguous axial imaging was performed from the skull base to vertex without intravenous administration of contrast. This CT examination was performed using dose optimization techniques as appropriate, variously including the following: *Automated exposure control *Adjustment of mA and/or kV according to patient size (this includes techniques or standardized protocols for targeted exams where dose is matched to indication/reason for exam; i.e. extremities or head) *Use of iterative reconstruction technique DLP: 7-1 mGy-cm FINDINGS: There is no evidence of an extra-axial collection. There is no evidence of intra-axial or extra-axial hemorrhage. The ventricles and extra-axial CSF spaces are appropriate. White matter differentiation is normal. No mass, mass effect or infarct is seen. U at bone windows is normal. No skull fracture. Visualized paranasal sinuses, mastoid air cells and middle ears are clear. CT/CT head/brain wo IV con IMPRESSION: No acute intracranial pathology.
--- NOTE | ~2022-10-10 | XR_ITS ---
EXAMINATION: XR CHEST CLINICAL INFORMATION: Chest pain. COMPARISON: CT chest and chest radiograph dated 09/29/2022. TECHNIQUE: Frontal view of the chest was obtained. FINDINGS: No significant abnormality is noted involving the heart, lungs, mediastinum, bony thorax or soft tissues. A left internal jugular Port-A-Cath device is noted. XR/XR chest 1V IMPRESSION: Unremarkable examination.
[2022-10-10 17:13] VITALS: BP 139/93; PULSE 85; RESP 18; TEMP 36.4; O2SAT 96; BMI 27.0
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
--- NOTE | 2022-10-10 17:14 | ECG_ITS ---
Test Reason : DIZZINESS Blood Pressure : / mmHG Vent. Rate : 081 BPM Atrial Rate : 081 BPM P-R Int : 152 ms QRS Dur : 074 ms QT Int : 416 ms P-R-T Axes : 043 020 058 degrees QTc Int : 483 ms Normal sinus rhythm Prolonged QT Abnormal ECG When compared with ECG of 29-SEP-2022 10:20, No significant change was found Referred By: Kellen Shaikh Electronically Signed By:AISHA MOHAMUD
[2022-10-10 17:35] LABS: MANUAL DIFF FLAG NO
[2022-10-10 17:48] LABS: Basophils Percent Auto 0.6 % (0-2); Eosinophils Absolute Auto 0.1 X10*3/uL (0.0-0.4); Hematocrit 42.6 % (37.0-47.0); Hemoglobin 14.4 g/dl (12.0-16.0); Imm Gran Abs Auto 0.08 X10*3/uL (0.00-0.03); Imm Gran Pct Auto 1.2 % (0.0-0.4); Lymphocytes Absolute Auto 1.6 X10*3/uL (1.2-4.9); Mean Corpuscular HGB Conc 33.8 g/dl (31.0-35.0); Mean Corpuscular Hemoglobin 30.4 pg (27.0-33.0); Mean Corpuscular Volume 89.9 fL (80.0-98.0); Mean Platelet Volume 10.5 fL (9.4-12.3); Monocytes Absolute Auto 0.4 X10*3/uL (0.1-1.2); Monocytes Percent Auto 6.1 % (2-11); Neutrophils Absolute Auto 4.5 x10*3/uL (2.0-8.3); Neutrophils Percent Auto 67.1 % (45-73); Platelet Count 229 X10*3/uL (160-400); Red Blood Count 4.74 X10*6/uL (4.20-5.50); Red Cell Distribution Width 12.8 % (11.0-16.0); White Blood Count 6.7 X10*3/uL (4.8-10.8)
[2022-10-10 17:52] LABS: Alanine Aminotransferase 40 U/L (0-31); Albumin Level 4.4 g/dL (3.5-5.0); Alkaline Phosphatase 72 U/L (39-117); Anion Gap 12 (12-20); Aspartate Amino Transferase 19 U/L (5-31); Bilirubin Total 0.5 mg/dL (0.0-1.0); Blood Urea Nitrogen 13 mg/dL (9-16); Calcium 9.6 mg/dL (8.4-10.2); Carbon Dioxide 25 mmol/L (22-29); Chloride 108 mmol/L (96-108); Creatinine Clr Calc Pharmacy 106.4; Estimated Glomerular Filt Rate > 60; Glucose Random 161 mg/dL (60-115); Magnesium 1.9 mg/dL (1.6-2.6); Potassium 3.7 mmol/L (3.3-5.1); Sodium 141 mmol/L (135-145); Total Protein 7.7 g/dL (6.5-8.0)
[2022-10-10 18:00] LABS: Troponin-I High Sensitivity < 2.7 ng/L (<3.5-17.0)
[2022-10-10 20:58] LABS: Appearance Urine Clear; Color Urine Yellow; Glucose Urine UA Negative (Negative); Leukocyte Esterase Urine Small (1+) (Negative); Nitrite Urine Negative (Negative); UMIC TRIGGER UACC YES; Urine Blood Negative (Negative); Urine Ketones Negative (Negative); Urine Protein Negative (Neg-Trace)
[2022-10-10 21:16] VITALS: BP 158/87; PULSE 74
[2022-10-10 21:18] VITALS: BP 154/93; PULSE 82
[2022-10-10 21:18] LABS: Bacteria Urine None Seen (None Seen); Hyaline Casts Urine 0-2 /LPF (0-2); RBC Urine 0-2 /HPF (0-2); Squamous Epithelial Cell Urine 0-2 /HPF (0-2); UACC Culture Trigger YES; WBC Urine 0-5 /HPF (0-5)
[2022-10-10 21:19] VITALS: BP 114/99; PULSE 86
[2022-10-10] MEDS: 0.9 % Sodium Chloride 1,000 ML 999 ML IV (22:27)
--- NOTE | 2022-10-10 22:32 | PC.NURSE ---
20G IV placed in left lateral AC 1L NS infusing per order, imaging obtained, call kuo within reach, warm blanket given no acute distress at this time
[2022-10-10 23:15] VITALS: BP 161/95; PULSE 73; RESP 16; TEMP 36.4; O2SAT 96
== END 2022-10-10 23:20 | disposition home or self-care (01) ==
PROVIDERS: Physician Assistant; Emergency Provider Emergency Medicine; PCP Internal Medicine
DX: E86.0 Dehydration (principal); R42 Dizziness and giddiness; R07.89 Other chest pain; Z79.899 Other long term (current) drug therapy
CPT/HCPCS: 36415; 70450; 71045; 80053; 81001; 83735; 84484; 85025; 87086; 87147; 93005; 99285

== ENCOUNTER 2023-01-09 08:13 | Outpatient (REF) | payer OTHER, SELFPAY ==
--- NOTE | ~2023-01-09 | MR_ITS ---
EXAMINATION: MR BREAST WITHOUT AND WITH CONTRAST, BILATERAL CLINICAL INFORMATION: High-risk screening, follow up right breast cancer. COMPARISON: MRI 01/12/2021 and 01/13/2020. Correlation to mammogram of 08/01/2022. TECHNIQUE: Imaging was performed with a dedicated breast coil. Prior to the administration of contrast, bilateral axial T1 and bilateral axial T2-weighted sequences were obtained. After the uneventful administration of?8 mL of Gadavist, dynamic contrast-enhanced VIBRANT series through the breasts in the axial plane were performed. Subtracted images were performed and reviewed. A delayed sagittal sequence through both breasts was acquired. Additionally, CAD post-processing, including maximum intensity projections, 3-D reconstructions and kinetic analysis, were performed an independent workstation and reviewed by the interpreting radiologist is a portion of this exam. FINDINGS: The patient's fibroglandular tissue demonstrates minimal background enhancement. LEFT BREAST: There is a susceptibility artifact with no associated enhancement at 2 o'clock. No suspicious masslike or non-masslike enhancement. No abnormal skin thickening or nipple retraction. No abnormal architectural distortion. Review of the T2-weighted images demonstrates no fibrocystic changes or dilated ducts. Review of kinetic images reveals no additional findings. RIGHT BREAST: There is stable architectural distortion in the upper outer quadrant from prior lumpectomy. No suspicious masslike or non-masslike enhancement. No abnormal skin thickening or nipple retraction. Review of the T2-weighted images demonstrates no fibrocystic changes or dilated ducts. Review of kinetic images reveals no additional findings. There is no suspicious internal mammary chain or axillary adenopathy. Limited views of the chest and abdomen are unremarkable. MR/MR breast BI wo/w con IMPRESSION: No new MR findings suspicious of malignancy. ASSESSMENT: LEFT BREAST: BI-RADS 2 - Benign. RIGHT BREAST: BI-RADS 2 - Benign. RECOMMENDATIONS: Routine mammographic imaging as per most recent study and MRI as per high-risk protocol.
[2023-01-09] MEDS: gadobutroL 10 ML VIAL IVPUSH (09:36)
== END 2023-01-09 08:14 | disposition home or self-care (01) ==
LOC: HO.MRI 08:13
PROVIDERS: PCP Internal Medicine; Visit Provider Surgery
DX: Z85.3 Personal history of malignant neoplasm of breast (principal)
CPT/HCPCS: 77049; A9585

== ENCOUNTER 2023-01-20 07:12 | Outpatient (REF) | payer OTHER, SELFPAY ==
[2023-01-20 08:19] LABS: Estimated Average Glucose 154 mg/dL
[2023-01-20 08:37] LABS: Alanine Aminotransferase 36 U/L (0-31); Anion Gap 13 (12-20); Aspartate Amino Transferase 21 U/L (5-31); Blood Urea Nitrogen 13 mg/dL (9-16); Calcium 8.9 mg/dL (8.4-10.2); Carbon Dioxide 27 mmol/L (22-29); Chloride 105 mmol/L (96-108); Cholesterol 143 mg/dL (<200); Estimated Glomerular Filt Rate > 60; Glucose Fasting 147 mg/dL (60-99); HDL Cholesterol 38 mg/dL (>40); LDL Cholesterol Calculated 88 mg/dL (<100); Potassium 3.8 mmol/L (3.3-5.1); Sodium 141 mmol/L (135-145); Triglycerides 86 mg/dL (<150)
[2023-01-20 08:54] LABS: Free T4 (Free Thyroxine) 1.05 ng/dL (0.71-1.85); Thyroid Stimulating Hormone 2.48 uIU/mL (0.32-4.0); Vitamin D 25-OH Total 46.1 ng/mL (>30)
== END 2023-01-20 07:13 | disposition home or self-care (01) ==
LOC: HO.LAB 07:12
PROVIDERS: PCP Internal Medicine; Visit Provider Internal Medicine
DX: E78.00 Pure hypercholesterolemia, unspecified (principal); E11.9 Type 2 diabetes mellitus without complications; E03.9 Hypothyroidism, unspecified; E04.1 Nontoxic single thyroid nodule; Z78.0 Asymptomatic menopausal state
CPT/HCPCS: 36415; 80048; 80061; 82306; 83036; 84439; 84443; 84450; 84460

== ENCOUNTER 2023-01-25 10:02 | Outpatient (AMB) | payer OTHER, SELFPAY ==
[2023-01-25 10:21] VITALS: BP 136/88; PULSE 70; O2SAT 100; BMI 26.5
--- NOTE | 2023-01-25 10:21 | MHC.PC.OV ---
Vital Signs 01/25/23 10:21 Height 5 ft 8 in Weight 174 lb 4 oz BMI 26.5 BP 136/88 Blood Pressure Location Lt brachial Position Sitting Pulse 70 Pulse Source Pulse Oximeter Pulse Oximetry (%) 100 Oxygen Delivery Method Room Air Intake Visit Reasons: 4 MON FUP+ NEEDS MARY9+JULIO Brito/ INTERPRET. Intake Note: Pt is here to follow up for her lab results Allergies omeprazole [OMEPRAZOLE] Adverse Reaction (Intermediate, Verified 01/25/23 10:40) HEADACHE, DIARRHEA Medication List - Last Reconciled 01/25/23 by Bonine Denton MD acetaminophen 650 mg PO Q6H PRN blood sugar diagnostic (FreeStyle Lite Strips) Check Blood sugar 2 times a day; cholecalciferol (vitamin D3) 50 mcg PO DAILY lancets Check blood sugar twice a day before meals metformin ER Stat take 500 mg of metformin in the morning with breakfast and 750 mg metformin or 1 and half tablets at night with supper 90 days simvastatin 20 mg PO BEDTIME Tobacco use date assessed: 01/25/23 Dental Screening Dental Screen Date: 01/25/23 Did you have a dental visit in the last 12 months?: Yes Did you have a dental problem in the last 6 months where you did not have access to dental care?: No Was dental information given to patient?: Patient has dentist HPI 4 MON FUP+ NEEDS RAY+JULIO Culp MD INTERPRET. HPI Details 57-year-old lady here today for follow-up on her diabetes mellitus, dyslipidemia hypertension. Has been feeling well, with recent labs showing improvement in her diabetes control, hemoglobin A1c at 7%, and fasting lipids are within normal limits. Blood pressure is also lower than last check. 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 Sister Breast cancer Sister High blood pressure Social History Household Members: Other Household Members Other:: Lives in a alevism community Housing: Other Housing Other:: community Are you a primary healthcare interpreter to a significant other at home: No Do you presently have visiting nurse or other home services: No Alcohol intake: never Patient Tobacco Use Status: Never used Tobacco e-Cigarette/Vaping Use: Never Used service: No Current occupational status: employed Cognitive needs: No Hearing needs: No Vision needs: Yes Questionnaire Thrive Questionnaire Date Thrive assessed: 03/27/22 AIME-7 AMB Questionnaire AIME-7 Date AIME - 7 assessed: 03/27/22 Source: Developed by Drs. Xander Waters, Lashay Forde, Mando Gomez and colleagues, with an educational khadra from [employer]. Review of Systems Const Denies fever(s), Denies headache(s) and Denies weakness Eyes Denies change in vision ENT Reports Normal hearing present, Denies dizziness, Denies headache(s), Denies nasal discharge and Denies neck pain Card Denies chest pain, Denies lightheadedness, Denies palpitations and Denies dyspnea Resp Denies chest congestion, Denies cough and Denies dyspnea GI Denies abdominal pain, Denies change in bowel habits and Denies heartburn Denies dysuria Musc Denies abnormal gait, Denies back pain, Denies myalgias, Denies arthralgias, Denies joint swelling, Denies limited range of motion, Denies muscle cramps, Denies muscle weakness, Denies neck pain, Denies numbness and Denies stiffness Skin/Breast Denies lesions and Denies rash Neuro Reports Normal hearing present, Denies abnormal gait, Denies dizziness, Denies headache(s), Denies numbness, Denies Sensory deficit (Neuro) and Denies weakness Endo Denies cold intolerance, Denies polyphagia, Denies polydipsia, Denies polyuria and Denies palpitations Edson/Lymph Reports no additional complaints Physical exam (Primary Care) Vital Signs: Last Vital Signs Pulse 70 01/25/23 10:21 BP 136/88 01/25/23 10:21 Pulse Ox 100 01/25/23 10:21 Oxygen Delivery Method Room Air 01/25/23 10:21 BMI result Body Mass Index 26.5 Tobacco/Smoking Status: Tobacco use Status Tobacco use date assessed 01/25/23 01/25/23 10:29 Patient Tobacco Use Status Never used Tobacco 01/25/23 10:23 e-Cigarette/Vaping Use Never Used 01/25/23 10:23 Thrive Assessment: Date of Thrive Assessment Date Thrive assessed 03/27/22 01/25/23 10:23 Const Other: Alert oriented x3, no acute distress noted ambulatory with normal gait Orientation/consciousness: patient oriented x3 HENMT Head: Yes normocephalic and Yes atraumatic Ears: hearing grossly normal bilaterally, external ears normal, TM's normal bilaterally and EAC's normal General nose exam: Normal external nose present Face and sinus: Yes face symmetric Mouth: Normal oral and palatal mucosa present, tongue normal, oropharynx normal and moist mucous membranes Eyes General: appearance normal, both eyes and all related structures Neck Neck: Yes no lymphadenopathy, Yes no meningeal signs and Yes supple Thyroid: other (Nonpalpable) Resp Auscultation: clear to auscultation bilaterally Cardio Other: S1-S2 present regular rate and rhythm GI Other: Normal bowel sounds, soft, nontender, no mass palpated General: Yes no CVA tenderness Back/Spine/Pelvis Back: no CVA tenderness and No back tenderness Skin General skin exam: no rashes or lesions noted Neuro General: patient oriented x3, gait normal, tone normal, moves all extremities, Normal light touch and pain sensation, no meningeal signs, no focal motor deficits and CN's II-XI intact bilaterally Cranial nerves: Yes Normal hearing present Gait exam (Neuro): Normal gait present Motor exam (neuro): 5/5 motor strength present throughout Sensory Exam: No Sensory deficit (Neuro) Extrem General: Yes full ROM, Yes no joint enlargement, Yes no pedal edema, Yes no calf tenderness and Yes normal gait Results Reviewed Results Reviewed: SPEC : [id number] GIA: 01/20/23 STATUS: COMP REQ : [id number] RECD: 01/20/[address] [facility] [address]: Bonnie Denton MD COMP: 01/20/23 ENTERED: 01/20/[address] [facility] [address]: ORDERED: Met Prof Fast, AST, ALT, Lipid Panel, Vitamin D 25-OH, Free T4, TSH Test Result Flag Reference Site Sodium 141 135-145 mmol/L Potassium 3.8 3.3-5.1 mmol/L CL 105 96-108 mmol/L CO2 27 22-29 mmol/L Gap 13 12-20 BUN 13 9-16 mg/dL Creat 0.70 0.5-1.4 mg/dL EGFR > 60 NOTE: For -Stateless individuals, multiply the result by 1.210. Chronic Kidney Disease: Estimated GFR < 60 mL/min/1.73m2 Severe Kidney Disease: Estimated GFR < 15 mL/min/1.73m2 FBS 147 H 60-99 mg/dL A fasting glucose of 126 mg/dl or greater on more than one occasion is considered diagnostic of diabetes. CA 8.9 # 8.4-10.2 mg/dL AST (GOT) 21 5-31 U/L ALT (GPT) 36 H 0-31 U/L Triglyceride 86 <150 mg/dL Desirable Triglyceride: less than 150 mg/dL Borderline High Triglyceride 150-199 mg/dL High Triglyceride: 200-499 mg/dL Very High Triglyceride: greater than or equal to 5OO mg/dL Cholesterol 143 <200 mg/dL Desirable Cholesterol: less than 200 mg/dL Borderline High Cholesterol: 200-239 mg/dL High Cholesterol: greater than 239 mg/dL LDL Calculated 88 <100 mg/dL Desirable LDL: less than 100 mg/dL Near Optimal/Above Optimal LDL: 110-129 mg/dL Borderline High LDL: 130-159 mg/dL High LDL: 160-189 mg/dL Very High LDL: greater than or equal to 190 mg/dL HDL 38 L >40 mg/dL Desirable HDL: greater than 40 mg/dL Note: This HDL assay may give artificially low results in patients with liver disease. Vit D 25-OH Tot 46.1 >30 ng/mL Health Based Reference Values* < 20 ng/mL Deficient 20-30 ng/mL Insufficient > 30 ng/mL Sufficient *Lesa TERESA. N Engl J Med. 2007;[id number]:266-280 Care must be taken in interpreting Vitamin D results from different laboratories and methodologies. Published data demonstrated that results from patients undergoing hemodialysis may show a negative bias when tested with various automated 25-OH vitamin D assays when compared to LC-MS/MS. When testing samples from patients whose predominant form of Vitamin D is Vitamin D2, such as patients receiving Vitamin D2 supplementation, results that are subtherapeutic should be confirmed with another method such as LC-MS/MS. Free T4 1.05 0.71-1.85 ng/dL TSH 3rd Gen. 2.48 0.32-4.0 uIU/mL TSH 3rd Generation ([facility]) Laboratory Tests 01/20/23 07:46 Estimat Average Glucose 154 Hemoglobin A1c % 7.0 H Assessment and Plan Assessment & Plan (1) Type 2 diabetes mellitus without complication, without long-term current use of insulin: Code(s): E11.9 - Type 2 diabetes mellitus without complications Plan: Recent lab results reviewed with patient, with sugar and hemoglobin A1c stable and at goal. Continue with metformin ER, continue to check fasting blood sugar at home, maintain log and bring to next appointment for review. Reinforced diabetic diet and regular exercise with patient. Counseled regarding importance of yearly diabetes retinopathy screening overdue for an eye exam with [facility] in [place], last 1 done July 2021. Patient advised to call and schedule appointment. Patient advised to inspect feet daily, for any signs of injury, callus or infection. Compliance with diet and regular exercise again stressed. Blood pressure goal is less than 130/80, goal LDL is less than 100 and goal hemoglobin A1c is less than 7% follow-up appointment made in--4-months, after fasting labs done. (2) Hypercholesteremia: Code(s): E78.00 - Pure hypercholesterolemia, unspecified Plan: Reviewed recent fasting lipid profile with patient with levels at goal except for low good cholesterol . Continue with simvastatin 20 mg at bedtime , in addition to adherence to low-cholesterol diet and regular exercise, at least 30 minutes 3 to 4 times a week. Advised patient to make healthy food choices, eat more fruits, vegetables, whole grains, wild caught fish and low-fat dairy. Limit amount of meat and fried or fatty food products, as well as processed foods and fast foods. Follow-up scheduled with repeat fasting lipid panel in 4 months. Orders: Orders Aspartate Amino Transferase 05/07/23 E11.9 - Type 2 diabetes mellitus without complications, E78.00 - Pure hypercholesterolemia, unspecified, Z78.0 - Asymptomatic menopausal state Alanine Aminotransferase 05/07/23 E11.9 - Type 2 diabetes mellitus without complications, E78.00 - Pure hypercholesterolemia, unspecified, Z78.0 - Asymptomatic menopausal state Basic Metabolic Panel Fasting 05/07/23 E11.9 - Type 2 diabetes mellitus without complications, E78.00 - Pure hypercholesterolemia, unspecified, Z78.0 - Asymptomatic menopausal state Hemoglobin A1c 05/07/23 E11.9 - Type 2 diabetes mellitus without complications, E78.00 - Pure hypercholesterolemia, unspecified, Z78.0 - Asymptomatic menopausal state Microalbumin, Random (w Creat) 05/07/23 E11.9 - Type 2 diabetes mellitus without complications, E78.00 - Pure hypercholesterolemia, unspecified, Z78.0 - Asymptomatic menopausal state Lipid Panel 05/07/23 E11.9 - Type 2 diabetes mellitus without complications, E78.00 - Pure hypercholesterolemia, unspecified, Z78.0 - Asymptomatic menopausal state Vitamin D 25-OH Total 05/07/23 E11.9 - Type 2 diabetes mellitus without complications, E78.00 - Pure hypercholesterolemia, unspecified, Z78.0 - Asymptomatic menopausal state Coding Level of Care Code Est Pt Level 4 (73348) Diagnoses Type 2 diabetes mellitus without complication, without long-term current use of insulin E11.9 Hypercholesteremia E78.00
== END 2023-01-25 11:07 | disposition home or self-care (01) ==
PROVIDERS: PCP Internal Medicine; Visit Provider Internal Medicine
DX: E11.9 Type 2 diabetes mellitus without complications (principal); E78.00 Pure hypercholesterolemia, unspecified
CPT/HCPCS: 99214

== ENCOUNTER 2023-01-26 10:05 | Outpatient (REF) | payer OTHER, SELFPAY ==
[2023-01-27 12:18] LABS: Thyroid Peroxidase Antibodies 1 IU/mL (<9)
== END 2023-01-26 10:06 | disposition home or self-care (01) ==
LOC: HO.LAB 10:05
PROVIDERS: PCP Internal Medicine; Visit Provider Internal Medicine Endocrinology, Diabetes & Metabolism
DX: E04.2 Nontoxic multinodular goiter (principal)
CPT/HCPCS: 36415; 86376

== ENCOUNTER 2023-02-20 09:12 | Outpatient (AMB) | payer OTHER, SELFPAY ==
[2023-02-20 09:21] VITALS: BP 140/75; BMI 26.0
--- NOTE | 2023-02-20 09:21 | MHC.OFFVIS ---
Intake Vital Signs 02/20/23 09:21 Height 5 ft 8 in Weight 171 lb BMI 26.0 BP 140/75 H Blood Pressure Location Lt brachial Position Sitting Intake Visit Reasons: 6 month breast exam, MRI results Intake Note: Patient is seen in office for 6 month follow up visit, breast exam. Pt c/o: denies any concerns regarding her breast mm:08/01/22 B MRI: 01/09/23 Resource Specialist Teacher Required: No Accompanied by: Self / Same As Patient Allergies omeprazole [OMEPRAZOLE] Adverse Reaction (Intermediate, Verified 02/20/23 09:22) HEADACHE, DIARRHEA Medication List - Last Reconciled 02/20/23 by Jean Claude Caba MD acetaminophen 650 mg PO Q6H PRN blood sugar diagnostic (FreeStyle Lite Strips) Check Blood sugar 2 times a day; cholecalciferol (vitamin D3) 50 mcg PO DAILY lancets Check blood sugar twice a day before meals metformin ER Stat take 500 mg of metformin in the morning with breakfast and 750 mg metformin or 1 and half tablets at night with supper 90 days simvastatin 20 mg PO BEDTIME HPI HPI Comments History of Present Illness Details 57-year-old female, former patient of Dr. Henao returning for a breast cancer follow-up. She was evaluated on 02/21/2018 for an abnormal mammogram of right breast. Stereotactic guided core biopsy revealed a high-grade ductal carcinoma in situ. She underwent right breast lumpectomy with needle localization and radial ellipse mastopexy closure and right axillary sentinel node biopsy on 03/26/2018. Final pathology demonstrated a grade 2 infiltrating ductal carcinoma with maximal diameter of 7 mm, ER/MI negative, HER2 Asif positive. Six sentinel nodes were identified 1 of which had micrometastasis, 2.5 mm in greatest diameter (T1b N1 M0). She underwent chemotherapy including 4 cycles of AC followed by 4 cycles of Taxol, Herceptin, and pertuzumab, completed 09/30/2018. This was complicated by mild peripheral neuropathy in feet and fingertips. Radiation therapy was completed at [facility] on 01/06/2019. She tolerated this well. Her last mammogram of 08/01/2022 revealed no mammographic evidence of malignancy (BI-RADS 2). MRI of 01/09/2023 revealed no new MR specific findings for malignancy (BI-RADS 2). She denies any new symptoms in either breast and generally feels well. She does report some tenderness in the right breast near the radial incision. 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 Sister Breast cancer Sister High blood pressure Social History Household Members: Other Household Members Other:: Lives in a pentecostalism community Housing: Other Housing Other:: community Are you a primary lead caregiver to a significant other at home: No Do you presently have visiting nurse or other home services: No Alcohol intake: never Patient Tobacco Use Status: Never used Tobacco e-Cigarette/Vaping Use: Never Used service: No Current occupational status: employed Cognitive needs: No Hearing needs: No Vision needs: Yes Review of Systems Const All systems reviewed & are unremarkable except as noted in HPI and below Skin/Breast Denies breast skin changes, Denies breast pain, Denies breast mass, Denies change in breast shape and Denies change in pigmentation Physical Exam Vital Signs: Last Vital Signs BP 140/75 H 02/20/23 09:21 BMI result Body Mass Index 26.0 Const General: cooperative, healthy appearing, comfortable, no acute distress, well developed, alert and awake Chest Other: Left breast: No skin change, no nipple retraction, no nipple discharge, no palpable mass, no enlarged lymph nodes. MediPort in left upper chest wall. Right breast: No skin change, no nipple retraction, no nipple discharge, no palpable mass, no enlarged lymph nodes Chest/axillae images: 1. Incision right breast upper outer quadrant Resp Effort & Inspection: normal respiratory effort Skin General skin exam: no rashes or lesions noted Extrem General: Yes no clubbing, cyanosis or edema Assessment & Plan Assessment & Plan (1) History of infiltrating ductal carcinoma of breast: Code(s): Z85.3 - Personal history of malignant neoplasm of breast (2) Infiltrating ductal carcinoma of right breast: Comment: grade 2, ER / MI -, HER2/asif +, status post lumpectomy and right sentinel node bx , s/p chemo and radiation tx Code(s): C50.911 - Malignant neoplasm of unspecified site of right female breast Plan Patient returns for a routine follow-up breast examination after right breast lumpectomy and sentinel node biopsy for infiltrating ductal carcinoma, ER/MI negative, HER2 Asif positive. She feels well and denies any ongoing symptoms. Examination today reveals no evidence of recurrence disease in either breast. Her most recent mammogram dated 08/01/2022 revealed no mammographic evidence of malignancy (BI-RADS 2). She is scheduled for her next mammogram in August 2023. Her most recent MRI of 01/09/2023 also reveals no new suspicious findings in either breast (BI-RADS 2). We will hold off on any further breast MRIs but continue twice yearly breast examination. She will follow-up in 6 months after her next mammogram. She is welcome to call sooner for any new concerns. Coding Level of Care Code Est Pt Level 3 (46668) Diagnoses History of infiltrating ductal carcinoma of breast Z85.3 Infiltrating ductal carcinoma of right breast C50.911
== END 2023-02-20 09:36 | disposition home or self-care (01) ==
PROVIDERS: PCP Internal Medicine; Visit Provider Surgery
DX: Z85.3 Personal history of malignant neoplasm of breast (principal); C50.911 Malignant neoplasm of unspecified site of right female breast
CPT/HCPCS: 99213

== ENCOUNTER → 2023-02-20 09:12 | Outpatient (BNVA) | payer OTHER, SELFPAY | PROVIDERS: PCP Internal Medicine; Visit Provider Surgery | DX: Z85.3 Personal history of malignant neoplasm of breast (principal); Z92.21 Personal history of antineoplastic chemotherapy; Z92.3 Personal history of irradiation | CPT/HCPCS: 99212 ==

== ENCOUNTER 2023-03-06 08:37 | Outpatient (REF) | payer OTHER, SELFPAY ==
--- NOTE | ~2023-03-06 | MM_ITS ---
EXAMINATION: BONE DENSITOMETRY CLINICAL INDICATION: Postmenopausal. COMPARISON: This is the patient's baseline examination. TECHNIQUE: Using a [employer] DXA System (software version: 13.1) manufactured by [employer], dual-energy x-ray absorptiometry was performed of the lumbar spine and left hip. The images are of good technical quality. Summary results are attached. FINDINGS: LEFT FEMUR, NECK: BMD 0.973 g/cm2, Z-score 0.4, T-score -0.5, normal. LEFT FEMUR, TOTAL: BMD 1.078 g/cm2, Z-score 1.1, T-score 0.6, normal. AP SPINE L1-L3 (excluding L4): The data of L1-L4 has been changed to exclude the L4 vertebral body, because degenerative sclerosis at this level may cause overestimation of lumbar spine density. BMD 0.895 g/cm2, Z-score -1.7, T-score -2.3, osteopenia. IDENTIFIED RISK FACTORS: Menopause, history of fracture (adult), glucocorticoids (chronic). HISTORY OF FRACTURE: Other. MEDICATIONS: Vitamin D, ERT/SERMS. MM/XR DEXA axial skeleton IMPRESSION: 1. DIAGNOSIS: Osteopenia based on the lowest T-score value of -2.3 in the lumbar spine applying World Health Organization criteria. 2. 10-YEAR FRACTURE RISK PREDICTION, FRAX: Not performed in this patient on estrogen or bone building treatments. 3. Treatment Recommendations: NOF guidelines recommend consideration for treatment in postmenopausal women and men age 50 and older presenting with the following: -A hip or vertebral (clinical or morphometric) fracture. -T-score less than or equal to -2.5 at the femoral neck or spine after appropriate evaluation to exclude secondary causes. -Low bone mass at the hip or spine and a 10-year fracture probability by FRAX of greater than or equal to 3% for hip fracture or greater than or equal to 20% for major osteoporotic fracture based on the [place] adapted WHO algorithm. 4. Other Recommendations: All treatment decisions require clinical judgment and consideration of individual patient factors, including patient preferences, comorbidities, previous drug use, risk factors not captured in the FRAX model (e.g. frailty, falls, vitamin D deficiency, increased bone turnover, interval significant decline in bone density) and possible under or overestimation of fracture risk by FRAX. Additional medical evaluation for secondary cause of low bone mineral density may be appropriate. FUTURE SCAN RECOMMENDATION: People with diagnosed cases of osteoporosis or at high risk for fracture should have regular bone mineral density tests. For patients eligible for Medicare, routine testing is allowed once every 2 years. The testing frequency can be increased to one year for patients who have rapidly progressing disease, those who are receiving or discontinuing medical therapy to restore bone mass, or have additional risk factors.
== END 2023-03-06 08:38 | disposition home or self-care (01) ==
LOC: HO.MAMMO 08:37
PROVIDERS: Visit Provider Internal Medicine Endocrinology, Diabetes & Metabolism
DX: Z13.820 Encounter for screening for osteoporosis (principal); Z78.0 Asymptomatic menopausal state
CPT/HCPCS: 77080

== ENCOUNTER 2023-05-22 06:20 | Outpatient (REF) | payer OTHER, SELFPAY ==
[2023-05-22 07:57] LABS: Estimated Average Glucose 166 mg/dL; Hemoglobin A1c % 7.4 % (<6.0)
[2023-05-22 08:17] LABS: Creatinine Urine 78.67 mg/dL; Microalbum/Creatinine Ratio Ur 22.8 ug/mg cr (<30)
[2023-05-22 08:28] LABS: Alanine Aminotransferase 33 U/L (0-31); Anion Gap 12 (12-20); Aspartate Amino Transferase 19 U/L (5-31); Blood Urea Nitrogen 14 mg/dL (9-16); Calcium 9.2 mg/dL (8.4-10.2); Carbon Dioxide 27 mmol/L (22-29); Chloride 105 mmol/L (96-108); Cholesterol 133 mg/dL (<200); Estimated Glomerular Filt Rate > 60; Glucose Fasting 125 mg/dL (60-99); HDL Cholesterol 38 mg/dL (>40); LDL Cholesterol Calculated 78 mg/dL (<100); Potassium 3.8 mmol/L (3.3-5.1); Sodium 140 mmol/L (135-145); Triglycerides 87 mg/dL (<150)
[2023-05-22 08:45] LABS: Vitamin D 25-OH Total 41.6 ng/mL (>30)
== END 2023-05-22 06:21 | disposition home or self-care (01) ==
LOC: HO.LAB 06:20
PROVIDERS: PCP Internal Medicine; Visit Provider Internal Medicine
DX: E78.00 Pure hypercholesterolemia, unspecified (principal); E11.9 Type 2 diabetes mellitus without complications; Z78.0 Asymptomatic menopausal state
CPT/HCPCS: 36415; 80048; 80061; 82043; 82306; 82570; 83036; 84450; 84460

== ENCOUNTER 2023-05-28 08:30 | Outpatient (AMB) | payer OTHER, SELFPAY ==
--- NOTE | 2023-05-28 08:33 | A.OFFPC_ITS ---
Vital Signs 05/28/23 08:40 Height 5 ft 8 in Weight 172 lb BMI 26.1 BP 114/80 Blood Pressure Location Lt brachial Position Sitting Pulse 78 Pulse Source Pulse Oximeter Pulse Oximetry (%) 96 Oxygen Delivery Method Room Air Intake Visit Reasons: Annual PE Intake Note: Pt is here today for her PE: last mammogram 08/01/22, colonoscopy 01/23/20 Allergies omeprazole [OMEPRAZOLE] Adverse Reaction (Intermediate, Verified 06/04/23 03:21) HEADACHE, DIARRHEA Medication List - Last Reconciled 05/28/23 by Bonnie Denton MD blood sugar diagnostic (FreeStyle Lite Strips) Check Blood sugar 2 times a day; cholecalciferol (vitamin D3) 50 mcg PO DAILY lancets Check blood sugar twice a day before meals metformin ER Stat take 500 mg of metformin in the morning with breakfast and 750 mg metformin or 1 and half tablets at night with supper 90 days simvastatin 20 mg PO BEDTIME Tobacco use date assessed: 05/28/23 Dental Screening Dental Screen Date: 05/28/23 Did you have a dental visit in the last 12 months?: Yes Did you have a dental problem in the last 6 months where you did not have access to dental care?: No Was dental information given to patient?: Patient has dentist HPI Annual PE HPI Details 57-year-old lady with diabetes mellitus, hyperlipidemia, and osteopenia as well as osteoarthritis of lumbar spine, here today for physical exam. She is up-to-date with her screening mammogram, due again in July 2023 and up-to-date with her screening colonoscopy done 01/23/2020. She is up-to-date with her diabetes retinopathy screening, goes to [facility], seen earlier this year., Recent fasting labs done showed normal lipids, but diabetes control is declining with a hemoglobin A1c at 7.4%. 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 Sister Breast cancer Sister High blood pressure Social History Household Members: Other Household Members Other:: Lives in a y[place] community Housing: Other Housing Other:: community Are you a primary healthcare analyst to a significant other at home: No Do you presently have visiting nurse or other home services: No Alcohol intake: never Patient Tobacco Use Status: Never used Tobacco e-Cigarette/Vaping Use: Never Used service: No Current occupational status: employed Cognitive needs: No Hearing needs: No Vision needs: Yes Questionnaire PHQ-9 Over the last 2 weeks, how often have you been bothered by any of the following problems? 1. Little interest or pleasure in doing things: not at all 2. Feeling down, depressed, or hopeless: not at all 3. Trouble falling or staying asleep, or sleeping too much: not at all 4. Feeling tired or having little energy: not at all 5. Poor appetite or overeating: not at all 6. Feeling bad about yourself - or that you are a failure or have let yourself or your family down: not at all 7. Trouble concentrating on things, such as reading the newspaper or watching television: not at all 8. Moving or speaking so slowly that other people could have noticed. Or the opposite - being so fidgety or restless that you have been moving around a lot more than usual: not at all 9. Thoughts that you would be better off or of hurting yourself in some way: not at all Total score: 0 Depression Screening Interpretation: Negative Depression Screening Done: Yes 48328 - PHQ-9 Billing: Yes Source: Developed by Drs. Xander Waters, Lashay Forde, Mando Gomez and colleagues, with an educational khadra from [employer]. Thrive Questionnaire Date Thrive assessed: 05/28/23 I am a: Patient What is your living situation today?: I have a steady place to live Within the past 12 months, did the food you bought not last and you didn't have the money to get more?: Never true Within the past 12 months, did you worry whether your food would run out before you got money to buy more?: Never true Do you have trouble paying for medicines?: No Do you have trouble getting transportation to medical appointments?: No Do you have trouble paying your heating and electricity bill?: No Do you have trouble taking care of your child, family member or friend?: No Do you have trouble with day-to-day activities such as bathing, preparing meals, shopping, managing finances, etc.?: No Are you currently unemployed and looking for a job?: No Are you interested in more education?: No THRIVE Score: 0 AUDIT C Alcohol Use Questionnaire (AUDIT-C) 1. How often do you have a drink containing alcohol?: Never Total Score: 0 AIME-7 AMB Questionnaire AIME-7 Date AIME - 7 assessed: 05/28/23 Feeling nervous, anxious, or on edge: 0 = Not at all Not being able to stop or control worryin = Not at all Worrying too much about different things: 0 = Not at all Trouble relaxin = Not at all Being so restless that it is hard to sit still: 0 = Not at all Becoming easily annoyed or irritable: 0 = Not at all Feeling afraid as if something awful might happen: 0 = Not at all Total AIME-7 score (0-4 normal; 5-9 mild; 10-14 moderate; 15-21 severe): 0 Source: Developed by Drs. Xander Waters, Lashay Forde, Mando Gomez and colleagues, with an educational khadra from [employer]. AIME-7 Assessment Billing AIME-7 Assessment Tool: AIME-7 Assessment 34590 Review of Systems Const Denies fever(s), Denies headache(s) and Denies weakness Eyes Details: Up-to-date with her eye exam for diabetes screening, goes to [facility] Denies change in vision ENT Reports Normal hearing present, Denies dizziness, Denies headache(s), Denies nasal discharge and Denies neck pain Card Denies chest pain, Denies lightheadedness, Denies palpitations and Denies dyspnea Resp Denies chest congestion, Denies cough and Denies dyspnea GI Denies abdominal pain, Denies change in bowel habits and Denies heartburn Denies dysuria Musc Denies abnormal gait, Denies back pain, Denies myalgias, Denies arthralgias, Denies joint swelling, Denies limited range of motion, Denies muscle cramps, Denies muscle weakness, Denies neck pain, Denies numbness and Denies stiffness Skin/Breast Denies lesions and Denies rash Neuro Reports Normal hearing present, Denies abnormal gait, Denies dizziness, Denies headache(s), Denies numbness, Denies Sensory deficit (Neuro) and Denies weakness Psych Reports no additional complaints Endo Denies cold intolerance, Denies polyphagia, Denies polydipsia, Denies polyuria and Denies palpitations Edson/Lymph Reports no additional complaints Aller/Immun Reports no additional complaints Physical exam (Primary Care) Vital Signs: Last Vital Signs Pulse 78 05/28/23 08:40 BP 114/80 05/28/23 08:40 Pulse Ox 96 05/28/23 08:40 Oxygen Delivery Method Room Air 05/28/23 08:40 BMI result Body Mass Index 26.1 Tobacco/Smoking Status: Tobacco use Status Tobacco use date assessed 05/28/23 05/28/23 08:38 Patient Tobacco Use Status Never used Tobacco 05/28/23 08:35 e-Cigarette/Vaping Use Never Used 05/28/23 08:35 PHQ-9: PHQ-9 Score PHQ-9: Total score 0 05/28/23 09:22 Depression Screening Interpretation: Negative Thrive Assessment: Date of Thrive Assessment Date Thrive assessed 05/28/23 05/28/23 08:49 Const Other: Alert oriented x3, no acute distress noted ambulatory with normal gait Orientation/consciousness: patient oriented x3 HENFL Head: Yes normocephalic and Yes atraumatic Ears: hearing grossly normal bilaterally, external ears normal, TM's normal bilaterally and EAC's normal General nose exam: Normal external nose present Face and sinus: Yes face symmetric Mouth: Normal oral and palatal mucosa present, tongue normal, oropharynx normal and moist mucous membranes Eyes General: appearance normal, both eyes and all related structures Neck Neck: Yes no lymphadenopathy, Yes no meningeal signs and Yes supple Thyroid: other (Nonpalpable) Resp Auscultation: clear to auscultation bilaterally Cardio Other: S1-S2 present regular rate and rhythm GI Other: Normal bowel sounds, soft, nontender, no mass palpated General: Yes no CVA tenderness Back/Spine/Pelvis Back: no CVA tenderness and No back tenderness Skin General skin exam: no rashes or lesions noted Neuro General: patient oriented x3, gait normal, tone normal, moves all extremities, Normal light touch and pain sensation, no meningeal signs, no focal motor deficits and CN's II-XI intact bilaterally Cranial nerves: Yes Normal hearing present Gait exam (Neuro): Normal gait present Motor exam (neuro): 5/5 motor strength present throughout Sensory Exam: No Sensory deficit (Neuro) Extrem General: Yes full ROM, Yes no joint enlargement, Yes no pedal edema, Yes no calf tenderness and Yes normal gait Psych Appearance: grossly normal and well kempt Mental Status: mental status grossly normal Speech and movement: Normal speech and movement present Affect: normal affect Results Reviewed Results Reviewed: Name: Herrera Terrell Sr Age/Sex: 57/F : 1965 Unit#: [id number] Attend Dr: Bonnie Denton MD Re05/22/23 Status: DEP [facility]F [facility] Disch: SPEC : [id number] GIA: 05/22/23 STATUS: COMP REQ : [id number] RECD: 05/22/[address]: Bonnie Denton MD COMP: 05/22/2345 ENTERED: 05/22/[address]: ORDERED: Met Prof Fast, AST, ALT, Lipid Panel, Vitamin D 25-OH Test Result Flag Reference Sodium 140 135-145 mmol/L Potassium 3.8 3.3-5.1 mmol/L CL 105 96-108 mmol/L CO2 27 22-29 mmol/L Gap 12 12-20 BUN 14 9-16 mg/dL Creat 0.69 0.5-1.4 mg/dL EGFR > 60 NOTE: For -Dominican individuals, multiply the result by 1.210. Chronic Kidney Disease: Estimated GFR < 60 mL/min/1.73m2 Severe Kidney Disease: Estimated GFR < 15 mL/min/1.73m2 FBS 125 H 60-99 mg/dL A fasting glucose from 100-125 mg/dl is considered impaired (pre-diabetes). CA 9.2 8.4-10.2 mg/dL AST (GOT) 19 5-31 U/L ALT (GPT) 33 H 0-31 U/L Triglyceride 87 <150 mg/dL Desirable Triglyceride: less than 150 mg/dL Borderline High Triglyceride 150-199 mg/dL High Triglyceride: 200-499 mg/dL Very High Triglyceride: greater than or equal to 5OO mg/dL Cholesterol 133 <200 mg/dL Desirable Cholesterol: less than 200 mg/dL Borderline High Cholesterol: 200-239 mg/dL High Cholesterol: greater than 239 mg/dL LDL Calculated 78 <100 mg/dL Desirable LDL: less than 100 mg/dL Near Optimal/Above Optimal LDL: 110-129 mg/dL Borderline High LDL: 130-159 mg/dL High LDL: 160-189 mg/dL Very High LDL: greater than or equal to 190 mg/dL HDL 38 L >40 mg/dL Desirable HDL: greater than 40 mg/dL Note: This HDL assay may give artificially low results in patients with liver disease. Vit D 25-OH Tot 41.6 >30 ng/mL Health Based Reference Values* < 20 ng/mL Deficient 20-30 ng/mL Insufficient > 30 ng/mL Sufficient Laboratory Tests 05/22/23 05/22/23 06:38 06:40 Estimat Average Glucose 166 Hemoglobin A1c % 7.4 H Urine Creatinine 78.67 Urine Microalbumin 18.0 Microalb/Creat Ratio 22.8 Assessment and Plan Assessment & Plan (1) Annual visit for general adult medical examination with abnormal findings: Code(s): Z00.01 - Encounter for general adult medical examination with abnormal findings Plan: Reviewed recent fasting lab results with patient. Continue regular dental visit every 6 months and regular eye exams yearly, goes to [facility]. Take adequate calcium in diet and vitamin-D 3 at 2000 IU per cap once a day, in addition to weight-bearing exercises to help maintain good muscle tone and weight control. Instructed to do self-breast exam, continue yearly mammogram. Declines cervical cancer screening, up-to-date with her screening colonoscopy. Up-to-date with all her vaccines. (2) Type 2 diabetes mellitus without complication, without long-term current use of insulin: Code(s): E11.9 - Type 2 diabetes mellitus without complications Plan: Hemoglobin A1c today is at 7.4%, metformin changed to 750 mg extended release to be taken 1 tablet twice a day with meals. Reinforced importance of following recommended diet and getting regular exercise. She is up-to-date with her diabetes eye screening goes to [facility] in [place]. Will see her back for follow-up in 3 months after fasting labs done (3) Hypercholesteremia: Code(s): E78.00 - Pure hypercholesterolemia, unspecified Plan: Lipids are within normal limits, continued on simvastatin 20 mg at bedtime. Orders: Orders Basic Metabolic Panel Fasting 08/13/23 E11.9 - Type 2 diabetes mellitus without complications, E78.00 - Pure hypercholesterolemia, unspecified Lipid Panel 08/13/23 E11.9 - Type 2 diabetes mellitus without complications, E78.00 - Pure hypercholesterolemia, unspecified Hemoglobin A1c 08/13/23 E11.9 - Type 2 diabetes mellitus without complications, E78.00 - Pure hypercholesterolemia, unspecified Alanine Aminotransferase 08/13/23 E11.9 - Type 2 diabetes mellitus without complications, E78.00 - Pure hypercholesterolemia, unspecified Aspartate Amino Transferase 08/13/23 E11.9 - Type 2 diabetes mellitus without complications, E78.00 - Pure hypercholesterolemia, unspecified Medications: Changed From metformin ER Stat take 500 mg of metformin in the morning with breakfast and 750 mg metformin or 1 and half tablets at night with supper 90 days 225 tabs 3RF E11.65 - Type 2 diabetes mellitus with hyperglycemia To metformin ER 750 mg PO BID 90 days 180 tabs 3RF E11.65 - Type 2 diabetes mellitus with hyperglycemia Coding Level of Care Code Est Pt Prev Care 40-64y(33937) Diagnoses Annual visit for general adult medical examination with abnormal findings Z00.01 Type 2 diabetes mellitus without complication, without long-term current use of insulin E11.9 Hypercholesteremia E78.00 Additional Codes AIME-7 Assessment Billing - AIME-7 Assessment Tool: AIME-7 Assessment 04657 ([id number])
[2023-05-28 08:40] VITALS: BP 114/80; PULSE 78; O2SAT 96; BMI 26.1
== END 2023-05-28 09:22 | disposition home or self-care (01) ==
PROVIDERS: PCP Internal Medicine; Visit Provider Internal Medicine
DX: Z00.00 Encounter for general adult medical examination without abnormal findings (principal); E11.9 Type 2 diabetes mellitus without complications; E78.00 Pure hypercholesterolemia, unspecified
CPT/HCPCS: 99396

== ENCOUNTER 2023-06-22 09:48 | Outpatient (REF) | payer OTHER, SELFPAY ==
--- NOTE | ~2023-06-22 | CT_ITS ---
EXAMINATION: CT ABDOMEN AND PELVIS WITH CONTRAST CLINICAL INFORMATION: Pancreatic cancer screening, positive PALB2 mutation. COMPARISON: Prior CT of 02/21/2021 TECHNIQUE: Multidetector volumetric images were obtained from the superior aspect of the liver through the pubic symphysis following administration 85 mL of Omnipaque 350 intravenous contrast. Sagittal and coronal reformatted images were obtained on the technologist's workstation. Oral contrast: No This CT examination was performed using dose optimization techniques as appropriate, variously including the following: *Automated exposure control *Adjustment of mA and/or kV according to patient size (this includes techniques or standardized protocols for targeted exams where dose is matched to indication/reason for exam; i.e. extremities or head) *Use of iterative reconstruction technique DLP: 363 mGy-cm FINDINGS: LUNG BASES: The visualized lung bases are unremarkable. LIVER, GALLBLADDER, AND BILIARY TREE: The liver is normal in size, shape, and attenuation. No focal hepatic lesion or biliary ductal dilatation is present. The gallbladder is unremarkable with no evidence of radiopaque gallstones, gallbladder wall thickening, or obvious pericholecystic inflammatory changes. PANCREAS: Unremarkable. SPLEEN: Unremarkable. ADRENAL GLANDS: Unremarkable. KIDNEYS AND URETERS: The kidneys are normal in size, shape, and attenuation. No hydronephrosis, hydroureter, or calculi seen. No perinephric stranding. BLADDER: Unremarkable. GASTROINTESTINAL TRACT: The small and large bowel are unremarkable. The appendix is unremarkable. ABDOMINAL WALL: No significant hernia is appreciated. LYMPH NODES: A chris mesentery and mild mesenteric adenopathy are unchanged. The largest mesenteric node measures 16 x 9 mm. VASCULAR: Unremarkable. PELVIC VISCERA: Unremarkable. OSSEOUS STRUCTURES: Degenerative disc disease is evident at L4-L5 with endplate sclerosis and a vacuum phenomenon. CT/CT abdomen pelvis w IV con IMPRESSION: 1. Since 02/21/2021, no significant interval change, and no CT evidence of developing pancreatic carcinoma. 2. Stable chris mesentery and mesenteric adenopathy. Continued attention on follow-up studies is recommended. Fleischner guidelines were followed.
[2023-06-22] MEDS: iohexoL 350 MG/ML 100 ML INFUS..BTL 85 ML IV (10:19)
== END 2023-06-22 09:49 | disposition home or self-care (01) ==
LOC: HO.CT 09:48
PROVIDERS: PCP Internal Medicine; Visit Provider Internal Medicine
DX: Z85.3 Personal history of malignant neoplasm of breast (principal)
CPT/HCPCS: 74177; Q9967

== ENCOUNTER 2023-08-07 09:24 | Outpatient (REF) | payer OTHER, SELFPAY ==
--- NOTE | ~2023-08-07 | MM_ITS ---
EXAMINATION: MM SCREENING DIGITAL BREAST TOMOSYNTHESIS, BILATERAL CLINICAL INFORMATION: Screening. Asymptomatic. The patient is status post right breast cancer surgery in 2019. The patient has a known PALB2 mutation. The patient has a current diagnosis of pancreatic cancer. COMPARISON: Mammography: This study is compared with prior exams dating back to 2020. TECHNIQUE: Digital breast tomosynthesis is performed in both the craniocaudal and mediolateral oblique views along with computer-aided detection (CAD). Synthesized 2D images are generated from the tomosynthesis. FINDINGS: There are scattered areas of fibroglandular density (ACR BI-RADS breast composition Category b). There are no significant masses, abnormal calcifications, or other abnormalities. There are postsurgical changes in the upper outer quadrant of the right breast. There is a biopsy tissue marker in the upper outer quadrant of the left breast. There is a central venous access port overlying the superior aspect of the left side of the chest. MM/MM tomosynthesis screening BI IMPRESSION: No mammographic evidence of malignancy. ASSESSMENT: BI-RADS BI-RADS 2 - Benign Findings RECOMMENDATION: Routine annual mammography screening. 1 year F/U This examination should not preclude the clinical evaluation of a suspicious palpable abnormality. This patient's information was entered into a reminder system with a target due date for their next mammogram.
== END 2023-08-07 09:25 | disposition home or self-care (01) ==
LOC: HO.MAMMO 09:24
PROVIDERS: PCP Internal Medicine; Visit Provider Internal Medicine
DX: Z12.31 Encounter for screening mammogram for malignant neoplasm of breast (principal)
CPT/HCPCS: 77063; 77067

== ENCOUNTER → 2023-08-07 09:30 | Outpatient (BNV) | payer OTHER, SELFPAY | PROVIDERS: PCP Internal Medicine; Visit Provider Radiology Diagnostic Radiology | DX: Z12.31 Encounter for screening mammogram for malignant neoplasm of breast (principal) | CPT/HCPCS: 77063; 77067 ==

== ENCOUNTER 2023-08-17 06:09 | Outpatient (REF) | payer OTHER, SELFPAY ==
[2023-08-17 07:11] LABS: Estimated Average Glucose 148 mg/dL; Hemoglobin A1c % 6.8 % (<6.0)
[2023-08-17 07:21] LABS: Alanine Aminotransferase 33 U/L (0-31); Anion Gap 12 (12-20); Aspartate Amino Transferase 18 U/L (5-31); Blood Urea Nitrogen 15 mg/dL (9-16); Calcium 9.3 mg/dL (8.4-10.2); Carbon Dioxide 26 mmol/L (22-29); Chloride 107 mmol/L (96-108); Cholesterol 142 mg/dL (<200); Estimated Glomerular Filt Rate > 60; Glucose Fasting 123 mg/dL (60-99); HDL Cholesterol 37 mg/dL (>40); LDL Cholesterol Calculated 87 mg/dL (<100); Potassium 3.5 mmol/L (3.3-5.1); Sodium 141 mmol/L (135-145); Triglycerides 91 mg/dL (<150)
== END 2023-08-17 06:10 | disposition home or self-care (01) ==
LOC: HO.LAB 06:09
PROVIDERS: PCP Internal Medicine; Visit Provider Internal Medicine
DX: E11.9 Type 2 diabetes mellitus without complications (principal); E78.00 Pure hypercholesterolemia, unspecified
CPT/HCPCS: 36415; 80048; 80061; 83036; 84450; 84460

== ENCOUNTER 2023-08-20 09:13 | Outpatient (AMB) | payer OTHER, SELFPAY ==
[2023-08-20 10:08] VITALS: BP 110/70; PULSE 78; O2SAT 96; BMI 26.3
--- NOTE | 2023-08-20 10:08 | A.OFFPC_ITS ---
Vital Signs 08/20/23 10:08 Height 5 ft 8 in Weight 173 lb BMI 26.3 BP 110/70 Blood Pressure Location Lt brachial Position Sitting Pulse 78 Pulse Source Pulse Oximeter Pulse Oximetry (%) 96 Oxygen Delivery Method Room Air Intake Visit Reasons: 3 month follow up Intake Note: Pt is here today for her 3 months f/u Allergies omeprazole [OMEPRAZOLE] Adverse Reaction (Intermediate, Verified 06/04/23 03:21) HEADACHE, DIARRHEA Medication List - Last Reconciled 08/20/23 by Bonnie Denton MD blood sugar diagnostic (FreeStyle Lite Strips) Check Blood sugar 2 times a day; cholecalciferol (vitamin D3) 50 mcg PO DAILY lancets Check blood sugar twice a day before meals metformin ER 750 mg PO BID 90 days simvastatin 20 mg PO BEDTIME Tobacco use date assessed: 08/20/23 Dental Screening Dental Screen Date: 08/20/23 Did you have a dental visit in the last 12 months?: Yes Did you have a dental problem in the last 6 months where you did not have access to dental care?: No Was dental information given to patient?: Patient has dentist HPI HPI Comments History of Present Illness Details 57-year-old lady with diabetes mellitus, hyperlipidemia, and osteopenia here today for follow-up. She had recent fasting labs done which showed normal electrolytes and renal function, normal liver enzymes, and normal lipid panel. Hemoglobin A1c has improved from 7.4 to 6.8%. Has been compliant with her medications and has trended trying to follow recommended diet, stays active. 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 Sister Breast cancer Sister High blood pressure Social History Household Members: Other Household Members Other:: Lives in a buddhism community Housing: Other Housing Other:: community Are you a primary primary care sales representative to a significant other at home: No Do you presently have visiting nurse or other home services: No Alcohol intake: never Patient Tobacco Use Status: Never used Tobacco e-Cigarette/Vaping Use: Never Used service: No Current occupational status: employed Cognitive needs: No Hearing needs: No Vision needs: Yes Questionnaire PHQ-9 Over the last 2 weeks, how often have you been bothered by any of the following problems? 1. Little interest or pleasure in doing things: not at all 2. Feeling down, depressed, or hopeless: not at all 3. Trouble falling or staying asleep, or sleeping too much: not at all 4. Feeling tired or having little energy: not at all 5. Poor appetite or overeating: not at all 6. Feeling bad about yourself - or that you are a failure or have let yourself or your family down: not at all 7. Trouble concentrating on things, such as reading the newspaper or watching television: not at all 8. Moving or speaking so slowly that other people could have noticed. Or the opposite - being so fidgety or restless that you have been moving around a lot more than usual: not at all 9. Thoughts that you would be better off or of hurting yourself in some way: not at all Total score: 0 Depression Screening Interpretation: Negative Depression Screening Done: Yes 70753 - PHQ-9 Billing: Yes Source: Developed by Drs. Xander Waters, Lashay Forde, Mando Gomez and colleagues, with an educational khadra from [employer]. Thrive Questionnaire Date Thrive assessed: 05/28/23 I am a: Patient What is your living situation today?: I choose not to answer this question Within the past 12 months, did the food you bought not last and you didn't have the money to get more?: I choose not to answer this question Within the past 12 months, did you worry whether your food would run out before you got money to buy more?: I choose not to answer this question Do you have trouble paying for medicines?: I choose not to answer this question Do you have trouble getting transportation to medical appointments?: I choose not to answer this question Do you have trouble paying your heating and electricity bill?: I choose not to answer this question Do you have trouble taking care of your child, family member or friend?: I choose not to answer this question Do you have trouble with day-to-day activities such as bathing, preparing meals, shopping, managing finances, etc.?: I choose not to answer this question Are you currently unemployed and looking for a job?: I choose not to answer this question Are you interested in more education?: I choose not to answer this question Please select the resources that you would like help with: Housing/Assisted Currently or been in a relationship where the following occur: I choose not to answer THRIVE Score: 0 AUDIT C Alcohol Use Questionnaire (AUDIT-C) 1. How often do you have a drink containing alcohol?: Monthly or less 2. How many drinks containing alcohol do you have on a typical day when you are drinking?: 1 or 2 3. How often do you have six or more drinks on one occasion?: Never Total Score: 1 AIME-7 AMB Questionnaire AIME-7 Date AIME - 7 assessed: 05/28/23 Feeling nervous, anxious, or on edge: 0 = Not at all Not being able to stop or control worryin = Not at all Worrying too much about different things: 0 = Not at all Trouble relaxin = Not at all Being so restless that it is hard to sit still: 0 = Not at all Becoming easily annoyed or irritable: 0 = Not at all Feeling afraid as if something awful might happen: 0 = Not at all Total AIME-7 score (0-4 normal; 5-9 mild; 10-14 moderate; 15-21 severe): 0 Source: Developed by Drs. Xander Waters, Lashay Forde, Mando Gomez and colleagues, with an educational khadra from [employer]. Review of Systems Const Denies fever(s), Denies headache(s) and Denies weakness Eyes Details: Up-to-date with her eye exam for diabetes screening, goes to [facility] Denies change in vision ENT Reports Normal hearing present, Denies dizziness, Denies headache(s), Denies nasal discharge and Denies neck pain Card Denies chest pain, Denies lightheadedness, Denies palpitations and Denies dyspnea Resp Denies chest congestion, Denies cough and Denies dyspnea GI Denies abdominal pain, Denies change in bowel habits and Denies heartburn Denies dysuria Musc Denies abnormal gait, Denies back pain, Denies myalgias, Denies arthralgias, Denies joint swelling, Denies limited range of motion, Denies muscle cramps, Denies muscle weakness, Denies neck pain, Denies numbness and Denies stiffness Skin/Breast Denies lesions and Denies rash Neuro Reports Normal hearing present, Denies abnormal gait, Denies dizziness, Denies headache(s), Denies numbness, Denies Sensory deficit (Neuro) and Denies weakness Psych Reports no additional complaints Endo Denies cold intolerance, Denies polyphagia, Denies polydipsia, Denies polyuria and Denies palpitations Edson/Lymph Reports no additional complaints Aller/Immun Reports no additional complaints Physical exam (Primary Care) Vital Signs: Last Vital Signs Pulse 78 08/20/23 10:08 BP 110/70 08/20/23 10:08 Pulse Ox 96 08/20/23 10:08 Oxygen Delivery Method Room Air 08/20/23 10:08 BMI result Body Mass Index 26.3 Tobacco/Smoking Status: Tobacco use Status Tobacco use date assessed 08/20/23 08/20/23 10:11 Patient Tobacco Use Status Never used Tobacco 08/20/23 10:11 e-Cigarette/Vaping Use Never Used 08/20/23 10:11 PHQ-9: PHQ-9 Score PHQ-9: Total score 0 08/20/23 10:16 Depression Screening Interpretation: Negative Thrive Assessment: Date of Thrive Assessment Date Thrive assessed 05/28/23 08/20/23 10:11 Currently or been in a relationship where the following occur: I choose not to answer Const Other: Alert oriented x3, no acute distress noted ambulatory with normal gait Orientation/consciousness: patient oriented x3 HENRI Head: Yes normocephalic and Yes atraumatic Ears: hearing grossly normal bilaterally, external ears normal, TM's normal bilaterally and EAC's normal General nose exam: Normal external nose present Face and sinus: Yes face symmetric Mouth: Normal oral and palatal mucosa present, tongue normal, oropharynx normal and moist mucous membranes Eyes General: appearance normal, both eyes and all related structures Neck Neck: Yes no lymphadenopathy, Yes no meningeal signs and Yes supple Thyroid: other (Nonpalpable) Resp Auscultation: clear to auscultation bilaterally Cardio Other: S1-S2 present regular rate and rhythm GI Other: Normal bowel sounds, soft, nontender, no mass palpated General: Yes no CVA tenderness Back/Spine/Pelvis Back: no CVA tenderness and No back tenderness Skin General skin exam: no rashes or lesions noted Neuro General: patient oriented x3, gait normal, tone normal, moves all extremities, Normal light touch and pain sensation, no meningeal signs, no focal motor deficits and CN's II-XI intact bilaterally Cranial nerves: Yes Normal hearing present Gait exam (Neuro): Normal gait present Motor exam (neuro): 5/5 motor strength present throughout Sensory Exam: No Sensory deficit (Neuro) Extrem General: Yes full ROM, Yes no joint enlargement, Yes no pedal edema, Yes no calf tenderness and Yes normal gait Psych Appearance: grossly normal and well kempt Mental Status: mental status grossly normal Speech and movement: Normal speech and movement present Affect: normal affect Results Reviewed Results Reviewed: Name: Herrera Terrell Sr Age/Sex: 57/F : 1965 Unit#: [id number] Attend Dr: Bonnie Denton MD Re08/17/23 Status: DEP [facility]: SPEC : [id number] GIA: 08/17/23 STATUS: COMP REQ : [id number] RECD: 08/17/[address]: Bonnie Denton MD COMP: 08/17/23 ENTERED: 08/17/[address]: ORDERED: Met Prof Fast, AST, ALT, Lipid Panel Test Result Flag Reference Sodium 141 135-145 mmol/L Potassium 3.5 3.3-5.1 mmol/L CL 107 96-108 mmol/L CO2 26 22-29 mmol/L Gap 12 12-20 BUN 15 9-16 mg/dL Creat 0.66 0.5-1.4 mg/dL EGFR > 60 NOTE: For -Surinamese individuals, multiply the result by 1.210. Chronic Kidney Disease: Estimated GFR < 60 mL/min/1.73m2 Severe Kidney Disease: Estimated GFR < 15 mL/min/1.73m2 FBS 123 H 60-99 mg/dL A fasting glucose from 100-125 mg/dl is considered impaired (pre-diabetes). CA 9.3 8.4-10.2 mg/dL AST (GOT) 18 5-31 U/L ALT (GPT) 33 H 0-31 U/L Triglyceride 91 <150 mg/dL Desirable Triglyceride: less than 150 mg/dL Borderline High Triglyceride 150-199 mg/dL High Triglyceride: 200-499 mg/dL Very High Triglyceride: greater than or equal to 5OO mg/dL Cholesterol 142 <200 mg/dL Desirable Cholesterol: less than 200 mg/dL Borderline High Cholesterol: 200-239 mg/dL High Cholesterol: greater than 239 mg/dL LDL Calculated 87 <100 mg/dL Desirable LDL: less than 100 mg/dL Near Optimal/Above Optimal LDL: 110-129 mg/dL Borderline High LDL: 130-159 mg/dL High LDL: 160-189 mg/dL Very High LDL: greater than or equal to 190 mg/dL HDL 37 L >40 mg/dL Desirable HDL: greater than 40 mg/dL Note: This HDL assay may give artificially low results in patients with liver disease. Laboratory Tests 08/17/23 06:17 Estimat Average Glucose 148 Hemoglobin A1c % 6.8 H Assessment and Plan Assessment & Plan (1) Type 2 diabetes mellitus without complication, without long-term current use of insulin: Code(s): E11.9 - Type 2 diabetes mellitus without complications Plan: Diabetes mellitus better controlled now a hemoglobin of 6.8% as compared to last check. Continue with adhering to healthy eating habits, no change in medications done , reinforced importance of staying active getting regular exercise. Will repeat another hemoglobin A1c in 5 months (2) Hypercholesteremia: Code(s): E78.00 - Pure hypercholesterolemia, unspecified Plan: Reviewed recent fasting lipid profile with patient with levels . Continue simvastatin 20 mg at bedtime , in addition to adherence to low-cholesterol diet and regular exercise, at least 30 minutes 3 to 4 times a week. Advised patient to make healthy food choices, eat more fruits, vegetables, whole grains, wild caught fish and low-fat dairy. Limit amount of meat and fried or fatty food products, as well as processed foods and fast foods. Follow-up scheduled with repeat fasting lipid panel in 5 months. Coding Level of Care Code Est Pt Level 4 (04918) Complex EM visit Add On G2211 Diagnoses Type 2 diabetes mellitus without complication, without long-term current use of insulin E11.9 Hypercholesteremia E78.00
== END 2023-08-20 10:32 | disposition home or self-care (01) ==
PROVIDERS: PCP Internal Medicine; Visit Provider Internal Medicine
DX: E11.9 Type 2 diabetes mellitus without complications (principal); E78.00 Pure hypercholesterolemia, unspecified
CPT/HCPCS: 99214; G2211

== ENCOUNTER 2023-09-11 09:09 | Outpatient (AMB) | payer OTHER, SELFPAY ==
--- NOTE | 2023-09-11 09:19 | A.OFFVIS_ITS ---
Vital Signs 3 09/11/23 09:23 Height 5 ft 8 in Weight 173 lb BMI 26.3 BP 134/75 Blood Pressure Location Lt brachial Position Sitting Pulse 82 Intake Visit Reasons: 6 month breast exam Intake Note: Patient is seen in office for 6 month follow up, breast exam. Pt c/o: denies any concerns regarding the breast mm:08/07/23 Glass Checker Required: No Carton Gluing Machine Operator: Carton Gluing Machine Operator Present Accompanied by: Self / Same As Patient Allergies omeprazole [OMEPRAZOLE] Adverse Reaction (Intermediate, Verified 09/11/23 09:23) HEADACHE, DIARRHEA Medication List - Last Reconciled 09/11/23 by Jean Claude Caba MD blood sugar diagnostic (FreeStyle Lite Strips) Check Blood sugar 2 times a day; cholecalciferol (vitamin D3) 50 mcg PO DAILY lancets Check blood sugar twice a day before meals metformin ER 750 mg PO BID 90 days simvastatin 20 mg PO BEDTIME HPI Comments Details: 57-year-old female, former patient of Dr. Henao returning for a breast cancer follow-up. She was evaluated on 02/21/2018 for an abnormal mammogram of right breast. Stereotactic guided core biopsy revealed a high-grade ductal carcinoma in situ. She underwent right breast lumpectomy with needle localization and radial ellipse mastopexy closure and right axillary sentinel node biopsy on 03/26/2018. Final pathology demonstrated a grade 2 infiltrating ductal carcinoma with maximal diameter of 7 mm, ER/AL negative, HER2 Asif positive. Six sentinel nodes were identified 1 of which had micrometastasis, 2.5 mm in greatest diameter (T1b N1 M0). She underwent chemotherapy including 4 cycles of AC followed by 4 cycles of Taxol, Herceptin, and pertuzumab, completed 09/30/2018. This was complicated by mild peripheral neuropathy in feet and fingertips. Radiation therapy was completed at [facility] on 01/06/2019. She tolerated this well. Her last mammogram of 08/07/2023 revealed no mammographic evidence of malignancy (BI-RADS 2). MRI of 01/09/2023 revealed no new MR specific findings for malignancy (BI- RADS 2). She denies any new symptoms in either breast and generally feels well. She does report some tenderness in the right breast near the radial incision. 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 Sister Breast cancer Sister High blood pressure Social History Household Members: Other Household Members Other:: Lives in a pentecostalism community Housing: Other Housing Other:: community Are you a primary md do resident urgent care to a significant other at home: No Do you presently have visiting nurse or other home services: No Alcohol intake: never Patient Tobacco Use Status: Never used Tobacco e-Cigarette/Vaping Use: Never Used service: No Current occupational status: employed Cognitive needs: No Hearing needs: No Vision needs: Yes Review of Systems Const All systems reviewed & are unremarkable except as noted in HPI and below Skin/Breast Denies breast skin changes, Denies breast pain, Denies breast mass, Denies change in breast shape and Denies change in pigmentation Physical Exam Vital Signs: Last Vital Signs Pulse 82 09/11/23 09:23 BP 134/75 09/11/23 09:23 BMI result Body Mass Index 26.3 Const General: cooperative, healthy appearing, comfortable, no acute distress, well developed, alert and awake Chest Other: Left breast: No skin change, no nipple retraction, no nipple discharge, no palpable mass, no enlarged lymph nodes. MediPort in left upper chest wall. Right breast: No skin change, no nipple retraction, no nipple discharge, no palpable mass, no enlarged lymph nodes, well-healed incision upper outer quadrant Chest/axillae images: 2 1. Radial ellipse right upper outer quadrant Resp Effort & Inspection: normal respiratory effort Skin General skin exam: no rashes or lesions noted Neuro Other: Mobility Assessment: 1. 3 meter assessment time (seconds) 5 2. Gait observations: Normal balance and gait Extrem General: Yes no clubbing, cyanosis or edema Assessment & Plan Assessment & Plan (1) History of infiltrating ductal carcinoma of breast: Code(s): Z85.3 - Personal history of malignant neoplasm of breast Category: Medical (2) Infiltrating ductal carcinoma of right breast: Comment: grade 2, ER / AL -, HER2/asif +, status post lumpectomy and right sentinel node bx , s/p chemo and radiation tx Code(s): C50.911 - Malignant neoplasm of unspecified site of right female breast Category: Medical Plan Patient returns for a routine follow-up breast examination after right breast lumpectomy and sentinel node biopsy for infiltrating ductal carcinoma, ER/AL negative, HER2 Asif positive. She feels well and denies any ongoing symptoms. Examination today reveals no evidence of recurrence disease in either breast. Her most recent mammogram dated 08/07/2023 revealed no mammographic evidence of malignancy (BI-RADS 2). She is scheduled for her next mammogram in August 2024. Her most recent MRI of 01/09/2023 also reveals no new suspicious findings in either breast (BI-RADS 2). We will hold off on any further breast MRIs but continue twice yearly breast examination. She will follow-up in 6 months after her next mammogram. She is welcome to call sooner for any new concerns. Coding Level of Care Code Est Pt Level 3 (27463) Diagnoses History of infiltrating ductal carcinoma of breast Z85.3 Infiltrating ductal carcinoma of right breast C50.911
[2023-09-11 09:23] VITALS: BP 134/75; PULSE 82; BMI 26.3
== END 2023-09-11 09:32 | disposition home or self-care (01) ==
PROVIDERS: PCP Internal Medicine; Visit Provider Surgery
DX: Z85.3 Personal history of malignant neoplasm of breast (principal)
CPT/HCPCS: 99213

== ENCOUNTER → 2023-09-11 09:09 | Outpatient (BNVA) | payer OTHER, SELFPAY | PROVIDERS: PCP Internal Medicine; Visit Provider Surgery | DX: C50.911 Malignant neoplasm of unspecified site of right female breast (principal) | CPT/HCPCS: 99212 ==

== ENCOUNTER 2023-09-24 10:58 | Day surgery (SDC) | payer OTHER, SELFPAY ==
--- NOTE | ~2023-09-24 | IR_ITS ---
History: Patient with MediPort that is no longer needed Procedure performed: Removal of a left chest port Physician: Erika Wright MD FSIR Anesthesia: IV moderate sedation with intravenous Fentanyl and Versed was administered under my direct supervision with continuous physiologic monitoring for a total of 30 minutes. 10 mL of 1% lidocaine was administered for local anesthesia Specimen: None Drains: None Complications: None Procedure in detail: Informed and written consent was obtained and placed in the chart. The patient was positioned supine on the angiography table with sterile preparation of the left chest. 1% lidocaine was injected into the subcutaneous and deeper soft tissues around the existing left chest port. A small incision was made in the skin with a #11 blade at the location of the original incision. Blunt dissection with hemostats was performed until the port was identified. The sutures securing the port were cut and the port was removed from the pocket. On the back table, we confirmed that the entirety of the port and port catheter were removed. The length of the catheter was 25 cm. The pocket was irrigated with antibiotic solution before being closed with interrupted 2-0 vertical Vicryl mattress suture. A running 4-0 Monocryl subcuticular suture was placed. Two layers of Dermabond were applied and allowed to dry before applying a sterile dressing. The patient tolerated the procedure well. Summary: Successful removal of a port from the left chest. Electronically signed by: Fredy Wright MD 10/04/2023 05:37 PM EDT
[2023-09-24 11:30] VITALS: BMI 27.9
[2023-09-24 11:44] LABS: Glucose, Whole Blood 188 mg/dL (60-115)
[2023-09-24 13:42] VITALS: BP 131/86; PULSE 73; RESP 16; TEMP 36.1; O2SAT 96
[2023-09-24 13:57] VITALS: BP 143/86; PULSE 72; RESP 16; TEMP 36.1; O2SAT 97
== END 2023-09-24 14:05 | disposition home or self-care (01) ==
PROVIDERS: Radiology Vascular & Interventional Radiology; PCP Internal Medicine; Visit Provider Internal Medicine
PROC: (CPT 36590; principal; 2023-09-24 13:00)
DX: Z45.2 Encounter for adjustment and management of vascular access device (principal); Z85.3 Personal history of malignant neoplasm of breast; E11.9 Type 2 diabetes mellitus without complications
CPT/HCPCS: 36590; 82947; A4364

== ENCOUNTER → 2023-09-24 11:51 | Outpatient (BNV) | payer OTHER, SELFPAY | PROVIDERS: PCP Internal Medicine; Visit Provider Radiology Vascular & Interventional Radiology | DX: Z45.2 Encounter for adjustment and management of vascular access device (principal) | CPT/HCPCS: 36590 ==

== ENCOUNTER 2023-11-22 15:56 | Outpatient (REF) | payer OTHER, SELFPAY ==
--- NOTE | ~2023-11-22 | US_ITS ---
EXAMINATION: US THYROID CLINICAL INFORMATION: Multinodular goiter. COMPARISON: Ultrasound soft tissue head/neck thyroid dated 10/10/2022. CT soft tissue neck 07/09/2018. TECHNIQUE: Linear transducer grayscale and color Doppler examination with attention to the region of the thyroid. FINDINGS: SIZE: Measurements of the thyroid lobes and nodules are given in sagittal, anteroposterior and transverse dimensions respectively. Right Thyroid Lobe: 5.0 x 1.4 x 1.6 cm, volume 5.9 mL. Previously 4.9 x 1.4 x 1.8 cm, volume 6.7 mL. Parenchyma: The gland echotexture is homogeneous. Thyroid vascularity is normal. Left Thyroid Lobe: 5.9 x 1.4 x 2.0 cm, volume 8.6 mL. Previously 6.0 x 1.7 x 2.2 cm, volume 11.5 mL. Parenchyma: The gland echotexture is heterogeneous. Thyroid vascularity is normal. Isthmus: 0.3 cm in maximum AP dimension. Previously 0.3 cm. Estimated total number of nodules greater than or equal to 1 cm: 3. [employer] nodules are described as follows: 1. Location: Right mid. Size: 0.4 x 0.3 x 0.3 cm, volume 0.01 mL. Previously: 0.7 x 0.6 x 0.5 cm, volume 0.1 mL. Nodule characteristics: Composition: Solid/almost completely solid (2). Echogenicity: Hypoechoic (2). Shape: Not taller than wide (0). Margins: Smooth (0). Echogenic Foci: Punctate echogenic foci (3). ACR TI-RADS total points: 7 Previous: 8 ACR TI-RADS category: 5 Previous: 5 Significant change in size (>/= 20% in 2 dimensions and minimal increase of 2 mm or 50% or greater increase in volume): No Change in features: Yes Change in ACR TI-RADS risk category: Yes 2. Location: Left superior. Size: 1.2 x 0.6 x 1.2 cm, volume 0.4 mL. Previously: 1.3 x 0.8 x 1.4 cm, volume 0.8 mL. Nodule characteristics: Composition: Solid (2). Echogenicity: Isoechoic (1). Shape: Not taller than wide (0). Margins: Smooth (0). Echogenic Foci: None (0). ACR TI-RADS total points: 3 Previous: 3 ACR TI-RADS category: 3 Previous: 3 Significant change in size (>/= 20% in 2 dimensions and minimal increase of 2 mm or 50% or greater increase in volume): No Change in features: No Change in ACR TI-RADS risk category: No 3. Location: Left mid. Size: 0.6 x 0.5 x 0.7 cm, volume 0.09 mL. Previously: 0.9 x 0.4 x 0.7 cm, volume 0.02 mL. Nodule characteristics: Composition: Spongiform (0). Echogenicity: Anechoic (0). Shape: Not taller than wide (0). Margins: Smooth (0). Echogenic Foci: None (0). ACR TI-RADS total points: 0 Previous: 2 ACR TI-RADS category: 1 Previous: 2 Significant change in size (>/= 20% in 2 dimensions and minimal increase of 2 mm or 50% or greater increase in volume): Yes Change in features: Yes Change in ACR TI-RADS risk category: Yes 4. Location: Left inferior. Size: 1.3 x 0.8 x 1.4 cm, volume 0.8 mL. Previously: 1.8 x 0.9 x 1.9 cm, volume 1.6 mL. Nodule characteristics: Composition: Spongiform (0). Echogenicity: Anechoic (0). Shape: Not taller than wide (0). Margins: Smooth (0). Echogenic Foci: None (0). ACR TI-RADS total points: 0 Previous: 7 ACR TI-RADS category: 1 Previous: 5 Significant change in size (>/= 20% in 2 dimensions and minimal increase of 2 mm or 50% or greater increase in volume): No Change in features: Yes Change in ACR TI-RADS risk category: Yes 5. Location: Left inferior. Size: 1.5 x 1.3 x 1.6 cm, volume 1.8 mL. Previously: 1.9 x 1.4 x 1.7 cm, volume 2.4 mL. Nodule characteristics: Composition: Solid (2). Echogenicity: Isoechoic (1). Shape: Not taller than wide (0). Margins: Smooth (0). Echogenic Foci: None (0). ACR TI-RADS total points: 3 Previous: 4 ACR TI-RADS category: 3 Previous: 4 Significant change in size (>/= 20% in 2 dimensions and minimal increase of 2 mm or 50% or greater increase in volume): No Change in features: Yes Change in ACR TI-RADS risk category: Yes NODES: No lymphadenopathy is seen in the tissue surrounding the thyroid gland. US/US thyroid IMPRESSION: 1. Bilateral thyroid nodules are seen, as detailed. Recommend continued thyroid ultrasound surveillance. 2. There is heterogeneous thyroid echotexture, which can be associated with thyroiditis. ACR TI-RADS RECOMMENDATION REFERENCE: Ultrasound-guided fine-needle aspiration, follow up ultrasound, no further followup. * TR1 (0 point) and TR2 (2 points): No FNA or followup * TR3 (3 points): FNA if more than or equal to 2.5 cm in maximum dimension, follow up ultrasound in 1, 3 and 5 years if 1.5 to 2.4 cm in maximum dimension. * TR4 (4-6 points): FNA if more than or equal to 1.5 cm in maximum dimension, follow up ultrasound in 1, 2, 3 and 5 years if 1 to 1.4 cm in maximum dimension. * TR5 (more than or equal to 7 points): FNA if more than or equal to 1 cm in maximum dimension, follow up ultrasound every year for 5 years if 0.5 to 0.9 cm in maximum dimension. * TR3, TR4 or TR5 nodules that are below the size threshold for follow up receive no followup. Electronically signed by: Jean Claude Bean MD 12/21/2023 03:44 PM EST
== END 2023-11-22 15:57 | disposition home or self-care (01) ==
LOC: HO.US 15:56
PROVIDERS: PCP Internal Medicine; Visit Provider Internal Medicine Endocrinology, Diabetes & Metabolism
DX: E04.2 Nontoxic multinodular goiter (principal)
CPT/HCPCS: 76536

== ENCOUNTER 2023-12-20 11:39 | Outpatient (AMB) | payer OTHER, SELFPAY ==
--- NOTE | 2023-12-20 11:44 | A.OFFPC_ITS ---
Vital Signs 12/20/23 11:45 Height 5 ft 8 in Weight 173 lb BMI 26.3 BP 120/70 Blood Pressure Location Lt brachial Position Sitting Pulse 75 Pulse Source Pulse Oximeter Pulse Oximetry (%) 97 Oxygen Delivery Method Room Air Intake Visit Reasons: 4 month follow up DM/labs Intake Note: Pt is here today for her 4mo.f/u DM Allergies omeprazole [OMEPRAZOLE] Adverse Reaction (Intermediate, Verified 12/20/23 12:07) HEADACHE, DIARRHEA Medication List - Last Reconciled 12/20/23 by Bonnie Denton MD blood sugar diagnostic (FreeStyle Lite Strips) Check Blood sugar 2 times a day; cholecalciferol (vitamin D3) 50 mcg PO DAILY lancets Check blood sugar twice a day before meals metformin ER 750 mg PO BID 90 days simvastatin 20 mg PO BEDTIME Tobacco use date assessed: 12/20/23 Dental Screening Dental Screen Date: 12/20/23 Did you have a dental visit in the last 12 months?: Yes Did you have a dental problem in the last 6 months where you did not have access to dental care?: No Was dental information given to patient?: Patient has dentist HPI 4 month follow up DM/labs HPI Details 58-year-old lady here today for follow-u p on her diabetes mellitus. She is currently taking metformin ER 750 mg 1 tablet twice a day but has not been very compliant with her diet and admits to not getting any regular exercise. Latest hemoglobin A1c now is at 8.6%.. She has been checking her blood sugars at home and it has always been running on average in the 150s. 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 Sister Breast cancer Sister High blood pressure Social History Household Members: Other Household Members Other:: Lives in a [place] community Housing: Other Housing Other:: community Are you a primary career based intervention coordinator to a significant other at home: No Do you presently have visiting nurse or other home services: No Alcohol intake: never Patient Tobacco Use Status: Never used Tobacco e-Cigarette/Vaping Use: Never Used service: No Current occupational status: employed Cognitive needs: No Hearing needs: No Vision needs: Yes Questionnaire Thrive Questionnaire Date Thrive assessed: 08/20/23 I am a: Patient What is your living situation today?: I choose not to answer this question Within the past 12 months, did the food you bought not last and you didn't have the money to get more?: I choose not to answer this question Within the past 12 months, did you worry whether your food would run out before you got money to buy more?: I choose not to answer this question Do you have trouble paying for medicines?: I choose not to answer this question Do you have trouble getting transportation to medical appointments?: I choose not to answer this question Do you have trouble paying your heating and electricity bill?: I choose not to answer this question Do you have trouble taking care of your child, family member or friend?: I choose not to answer this question Do you have trouble with day-to-day activities such as bathing, preparing meals, shopping, managing finances, etc.?: I choose not to answer this question Are you currently unemployed and looking for a job?: I choose not to answer this question Are you interested in more education?: I choose not to answer this question Please select the resources that you would like help with: None Currently or been in a relationship where the following occur: I choose not to answer THRIVE Score: 0 AIME-7 AMB Questionnaire AIME-7 Date AIME - 7 assessed: 05/28/23 Source: Developed by Drs. Xander Waters, Lashay Forde, Mando Gomez and colleagues, with an educational khadra from [employer]. Review of Systems Const Denies fever(s), Denies headache(s) and Denies weakness Eyes Details: Up-to-date with her eye exam for diabetes screening, goes to [facility] Denies change in vision ENT Reports Normal hearing present, Denies dizziness, Denies headache(s), Denies nasal discharge and Denies neck pain Card Denies chest pain, Denies lightheadedness, Denies palpitations and Denies dyspnea Resp Denies chest congestion, Denies cough and Denies dyspnea GI Denies abdominal pain, Denies change in bowel habits and Denies heartburn Denies dysuria Musc Denies abnormal gait, Denies back pain, Denies myalgias, Denies arthralgias, Denies joint swelling, Denies limited range of motion, Denies muscle cramps, Denies muscle weakness, Denies neck pain, Denies numbness and Denies stiffness Skin/Breast Denies lesions and Denies rash Neuro Reports Normal hearing present, Denies abnormal gait, Denies dizziness, Denies headache(s), Denies numbness, Denies Sensory deficit (Neuro) and Denies weakness Psych Reports no additional complaints Endo Denies cold intolerance, Denies polyphagia, Denies polydipsia, Denies polyuria a nd Denies palpitations Edson/Lymph Reports no additional complaints Aller/Immun Reports no additional complaints Physical exam (Primary Care) Vital Signs: Last Vital Signs Pulse 75 12/20/23 11:45 BP 120/70 12/20/23 11:45 Pulse Ox 97 12/20/23 11:45 Oxygen Delivery Method Room Air 12/20/23 11:45 BMI result Body Mass Index 26.3 Tobacco/Smoking Status: Tobacco use Status Tobacco use date assessed 12/20/23 12/20/23 11:48 Patient Tobacco Use Status Never used Tobacco 12/20/23 11:48 e-Cigarette/Vaping Use Never Used 12/20/23 11:48 Thrive Assessment: Date of Thrive Assessment Date Thrive assessed 08/20/23 12/20/23 11:48 Currently or been in a relationship where the following occur: I choose not to answer Const Other: Alert oriented x3, no acute distress noted ambulatory with normal gait Orientation/consciousness: patient oriented x3 HENMT Head: Yes normocephalic and Yes atraumatic Face and sinus: Yes face symmetric Mouth: Normal oral and palatal mucosa present, tongue normal, oropharynx normal and moist mucous membranes Eyes General: appearance normal, both eyes and all related structures Neck Neck: Yes no lymphadenopathy, Yes no meningeal signs and Yes supple Thyroid: other (Nonpalpable) Resp Auscultation: clear to auscultation bilaterally Cardio Other: S1-S2 present regular rate and rhythm GI Other: Normal bowel sounds, soft, nontender, no mass palpated General: Yes no CVA tenderness Back/Spine/Pelvis Back: no CVA tenderness and No back tenderness Skin General skin exam: no rashes or lesions noted Neuro General: patient oriented x3, gait normal, tone normal, moves all extremities, Normal light touch and pain sensation, no meningeal signs, no focal motor deficits and CN's II-XI intact bilaterally Cranial nerves: Yes Normal hearing present Gait exam (Neuro): Normal gait present Motor exam (neuro): 5/5 motor strength present throughout Sensory Exam: No Sensory deficit (Neuro) Extrem General: Yes full ROM, Yes no joint enlargement, Yes no pedal edema, Yes no calf tenderness and Yes normal gait Results AMB Hemoglobin A1c AMB Hemoglobin A1c 8.4 % Last Edit by Joanne Arvizu CMA on 12/20/23 12:01 Results Reviewed Results Reviewed: Laboratory Last Values Hgb A1c (Clinic) 8.4 % (4.0-6.0) H 12/20/23 12:00 Name: Herrera Terrell Sr Age/Sex: 58/F : 1965 Unit#: [id number] Attend Dr: Xi Pretty MD Re12/10/23 Status: REG RCR Location: [facility] Disch: SPEC : [id number] GIA: 12/10/23 STATUS: COMP REQ : [id number] RECD: 12/10/[address]: Xi Pretty MD COMP: 12/10/23 ENTERED: 12/10/[address]: Bonnie Denton MD ORDERED: Liver Panel, Met Prof Fast/R Test Result Flag Reference Sodium 139 135-145 mmol/L Potassium 3.9 3.3-5.1 mmol/L CL 103 96-108 mmol/L CO2 27 22-29 mmol/L Gap 13 12-20 BUN 13 9-16 mg/dL Creat 0.83 0.5-1.4 mg/dL Estimated CrCl 80.7 Provided height and weight: 172.72 cm, 79.3 kg. eGFR (calculated from the MDRD study equation) and eCrCl (calculated from the Cockcroft-Gault equation) are based on different parameters and may not yield comparable results. If eCrCl result is absurd, please check patient's height/weight. EGFR > 60 NOTE: For -Syrian individuals, multiply the result by 1.210. Chronic Kidney Disease: Estimated GFR < 60 mL/min/1.73m2 Severe Kidney Disease: Estimated GFR < 15 mL/min/1.73m2 FBS 346 H 60-99 mg/dL A fasting glucose of 126 mg/dl or greater on more than one occasion is considered diagnostic of diabetes. CA 9.5 8.4-10.2 mg/dL Total Bili 0.5 0.0-1.0 mg/dL Direct Bili 0.2 0.0-0.5 mg/dL AST (GOT) 32 H 5-31 U/L ALT (GPT) 64 H 0-31 U/L Protein, Total 7.3 6.5-8.0 g/dL Alb 4.1 3.5-5.0 g/dL Alk Phos 74 39-117 U/L Name: Herrera Terrell Sr Age/Sex: 57/F : 1965 Unit#: [id number] Attend Dr: Bonnie Denton MD Re08/17/23 Status: DEP REF Location: [facility] Disch: SPEC : [id number] GIA: 08/17/23 STATUS: COMP REQ : [id number] RECD: 08/17/23 [facility] DR: Bonnie Denton MD COMP: 08/17/23 ENTERED: 08/17/[address] [facility] [address]: ORDERED: Met Prof Fast, AST, ALT, Lipid Panel Test Result Flag Reference Sodium 141 135-145 mmol/L Potassium 3.5 3.3-5.1 mmol/L CL 107 96-108 mmol/L CO2 26 22-29 mmol/L Gap 12 12-20 BUN 15 9-16 mg/dL Creat 0.66 0.5-1.4 mg/dL EGFR > 60 NOTE: For -Syrian individuals, multiply the result by 1.210. Chronic Kidney Disease: Estimated GFR < 60 mL/min/1.73m2 Severe Kidney Disease: Estimated GFR < 15 mL/min/1.73m2 FBS 123 H 60-99 mg/dL A fasting glucose from 100-125 mg/dl is considered impaired (pre-diabetes). CA 9.3 8.4-10.2 mg/dL AST (GOT) 18 5-31 U/L ALT (GPT) 33 H 0-31 U/L Triglyceride 91 <150 mg/dL Desirable Triglyceride: less than 150 mg/dL Borderline High Triglyceride 150-199 mg/dL High Triglyceride: 200-499 mg/dL Very High Triglyceride: greater than or equal to 5OO mg/dL Cholesterol 142 <200 mg/dL Desirable Cholesterol: less than 200 mg/dL Borderline High Cholesterol: 200-239 mg/dL High Cholesterol: greater than 239 mg/dL LDL Calculated 87 <100 mg/dL Desirable LDL: less than 100 mg/dL Near Optimal/Above Optimal LDL: 110-129 mg/dL Borderline High LDL: 130-159 mg/dL High LDL: 160-189 mg/dL Very High LDL: greater than or equal to 190 mg/dL HDL 37 L >40 mg/dL Desirable HDL: greater than 40 mg/dL Note: This HDL assay may give artificially low results in patients with liver disease. Coding Level of Care Code Est Pt Level 4 (01040) Complex EM visit Add On G2211 Diagnoses Type 2 diabetes mellitus without complication, without long-term current use of insulin E11.9 Hypercholesteremia E78.00 Assessment & Plan Assessment & Plan (1) Type 2 diabetes mellitus without complication, without long-term current use of insulin: Code(s): E11.9 - Type 2 diabetes mellitus without complications Category: Medical Plan: Recent lab results reviewed with patient, with sugar and hemoglobin A1c stable not at goal. Will increase metformin dose to a 1000 mg per tablet taken 1 tablet twice a day with meals., continue to check fasting blood sugar at home, maintain log and bring to next appointment for review. Reinforced diabetic diet and regular exercise with patient. She is up-to-date with her yearly diabetes retinopathy screening, goes to [facility].. Patient advised to inspect feet daily, for any signs of injury, callus or infection. Compliance with diet and regular exercise again stressed. Blood pressure goal is less than 130/80, goal LDL is less than 100 and goal hemoglobin A1c is less than 7% follow-up appointment made in--3-months, after fasting labs done. (2) Hypercholesteremia: Code(s): E78.00 - Pure hypercholesterolemia, unspecified Category: Medical Plan: Continue with simvastatin 20 mg at bedtime. Reinforced importance of following a low-cholesterol diet and getting regular exercise. Repeat another fasting lipid panel in 3 months, ordered Orders: Orders AMB Hemoglobin A1c Today E11.9 - Type 2 diabetes mellitus without complications Lipid Panel 03/08/24 E11.9 - Type 2 diabetes mellitus without complications, E78.00 - Pure hypercholesterolemia, unspecified, M85.80 - Other specified disorders of bone density and structure, unspecified site Microalbumin, Random (w Creat) 03/08/24 E11.9 - Type 2 diabetes mellitus without complications, E78.00 - Pure hypercholesterolemia, unspecified, M85.80 - Other specified disorders of bone density and structure, unspecified site Hemoglobin A1c 03/08/24 E11.9 - Type 2 diabetes mellitus without complications, E78.00 - Pure hypercholesterolemia, unspecified, M85.80 - Other specified disorders of bone density and structure, unspecified site Alanine Aminotransferase 03/08/24 E11.9 - Type 2 diabetes mellitus without complications, E78.00 - Pure hypercholesterolemia, unspecified, M85.80 - Other specified disorders of bone density and structure, unspecified site Aspartate Amino Transferase 03/08/24 E11.9 - Type 2 diabetes mellitus without complications, E78.00 - Pure hypercholesterolemia, unspecified, M85.80 - Other specified disorders of bone density and structure, unspecified site Vitamin D 25-OH Total 03/08/24 E11.9 - Type 2 diabetes mellitus without complications, E78.00 - Pure hypercholesterolemia, unspecified, M85.80 - Other specified disorders of bone density and structure, unspecified site Basic Metabolic Panel Fasting 03/08/24 E11.9 - Type 2 diabetes mellitus without complications, E78.00 - Pure hypercholesterolemia, unspecified, M85.80 - Other specified disorders of bone density and structure, unspecified site Medications: New metformin 1,000 mg PO BIDWMEAL 180 tabs 1RF 3 months Discontinued metformin ER Discontinued Reason: Doctor's Order 750 mg PO BID 90 days 180 tabs 3RF E11.65 - Type 2 diabetes mellitus with hyperglycemia
[2023-12-20 11:45] VITALS: BP 120/70; PULSE 75; O2SAT 97; BMI 26.3
== END 2023-12-20 12:24 | disposition home or self-care (01) ==
PROVIDERS: PCP Internal Medicine; Visit Provider Internal Medicine
DX: E11.9 Type 2 diabetes mellitus without complications (principal); E78.00 Pure hypercholesterolemia, unspecified

== ENCOUNTER → 2023-12-20 11:39 | Outpatient (BNVA) | payer OTHER, SELFPAY | PROVIDERS: PCP Internal Medicine; Visit Provider Internal Medicine | DX: E11.9 Type 2 diabetes mellitus without complications (principal); E78.00 Pure hypercholesterolemia, unspecified | CPT/HCPCS: 83036; 99212 ==

== ENCOUNTER 2024-03-11 09:14 | Outpatient (AMB) | payer OTHER, SELFPAY ==
--- NOTE | 2024-03-11 09:17 | MHC.OFFVIS ---
Vital Signs 03/11/24 09:25 Height 5 ft 8 in Weight 173 lb BMI 26.3 BP 132/75 Blood Pressure Location Lt brachial Position Sitting Pulse 88 Intake Visit Reasons: 6 month breast exam Intake Note: Patient is seen in office for 6 month follow up visit, breast exam. Pt c/o: denies any concern regarding the breast, had her port removed in 09/24/2023 MRI:01/09/23 (DUE) mm sched:08/12/24 Equipment Engineer Required: No Financial Assistant: Financial Assistant Present Accompanied by: Self / Same As Patient Allergies omeprazole [OMEPRAZOLE] Adverse Reaction (Intermediate, Verified 03/11/24 09:26) HEADACHE, DIARRHEA Medication List - Last Reconciled 03/11/24 by Jean Claude Caba MD blood sugar diagnostic (FreeStyle Lite Strips) Check Blood sugar 2 times a day; cholecalciferol (vitamin D3) 50 mcg PO DAILY lancets Check blood sugar twice a day before meals metformin 1,000 mg PO BIDWMEAL 3 months simvastatin 20 mg PO BEDTIME tramadol 50 mg PO DAILY PRN HPI Comments Details: 58-year-old female, former patient of Dr. Henao returning for a breast cancer follow-up. She was evaluated on 02/21/2018 for an abnormal mammogram of right breast. Stereotactic guided core biopsy revealed a high-grade ductal carcinoma in situ. She underwent right breast lumpectomy with needle localization and radial ellipse mastopexy closure and right axillary sentinel node biopsy on 03/26/2018. Final pathology demonstrated a grade 2 infiltrating ductal carcinoma with maximal diameter of 7 mm, ER/MO negative, HER2 Asif positive. Six sentinel nodes were identified 1 of which had micrometastasis, 2.5 mm in greatest diameter (T1b N1 M0). She underwent chemotherapy including 4 cycles of AC followed by 4 cycles of Taxol, Herceptin, and pertuzumab, completed 09/30/2018. This was complicated by mild peripheral neuropathy in feet and fingertips. Radiation therapy was completed at [facility] on 01/06/2019. She tolerated this well. Her last mammogram of 08/07/2023 revealed no mammographic evidence of malignancy (BI-RADS 2). MRI of 01/09/2023 revealed no new MR specific findings for malignancy (BI-RADS 2). She denies any new symptoms in either breast and generally feels well. She reports having the MediPort removed under local anesthesia. 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 Sister Breast cancer Sister High blood pressure Social History Household Members: Other Household Members Other:: Lives in a latter day community Housing: Other Housing Other:: community Are you a primary rn intensive care unit to a significant other at home: No Do you presently have visiting nurse or other home services: No Alcohol intake: never Patient Tobacco Use Status: Never used Tobacco e-Cigarette/Vaping Use: Never Used service: No Current occupational status: employed Cognitive needs: No Hearing needs: No Vision needs: Yes Review of Systems Const All systems reviewed & are unremarkable except as noted in HPI and below Skin/Breast Denies breast skin changes, Denies breast pain, Denies breast mass, Denies change in breast shape and Denies change in pigmentation Physical Exam Vital Signs: Last Vital Signs Pulse 88 03/11/24 09:25 BP 132/75 03/11/24 09:25 BMI result Body Mass Index 26.3 Const General: cooperative, healthy appearing, comfortable, no acute distress, well developed, alert and awake Chest Other: Left breast: No skin change, no nipple retraction, no nipple discharge, no palpable mass, no enlarged lymph nodes. Left MediPort incision is clean, dry, and intact Right breast: No skin change, no nipple retraction, no nipple discharge, no palpable mass, no enlarged lymph nodes, well-healed incision upper outer quadrant Chest/axillae images: 1. Incision upper outer right breast Resp Effort & Inspection: normal respiratory effort Skin General skin exam: no rashes or lesions noted Neuro Other: Mobility Assessment: 1. 3 meter assessment time (seconds) 5 2. Gait observations: Normal balance and gait Extrem General: Yes no clubbing, cyanosis or edema Assessment & Plan Assessment & Plan (1) History of infiltrating ductal carcinoma of breast: Code(s): Z85.3 - Personal history of malignant neoplasm of breast Category: Medical (2) Infiltrating ductal carcinoma of right breast: Comment: grade 2, ER / MO -, HER2/asif +, status post lumpectomy and right sentinel node bx , s/p chemo and radiation tx Code(s): C50.911 - Malignant neoplasm of unspecified site of right female breast Category: Medical Plan Patient returns for a routine follow-up breast examination after right breast lumpectomy and sentinel node biopsy for infiltrating ductal carcinoma, ER/MO negative, HER2 Asif positive. She feels well and denies any ongoing symptoms. Examination today reveals no evidence of recurrence disease in either breast. Her most recent mammogram dated 08/07/2023 revealed no mammographic evidence of malignancy (BI-RADS 2). She is scheduled for her next mammogram in August 2024. Her most recent MRI of 01/09/2023 also reveals no new suspicious findings in either breast (BI-RADS 2). New MRI has been ordered. She will follow-up in 1 year, sooner p.r.n.. Orders: Orders MM screening mammo BI 08/07/24 Z85.3 - Personal history of malignant neoplasm of breast MR breast BI wo/w con Today Z85.3 - Personal history of malignant neoplasm of breast Coding Level of Care Code Tele Est Pt Level 3 (44071) Diagnoses History of infiltrating ductal carcinoma of breast Z85.3 Infiltrating ductal carcinoma of right breast C50.911
[2024-03-11 09:25] VITALS: BP 132/75; PULSE 88; BMI 26.3
== END 2024-03-11 09:38 | disposition home or self-care (01) ==
PROVIDERS: PCP Internal Medicine; Visit Provider Surgery
DX: Z85.3 Personal history of malignant neoplasm of breast (principal)
CPT/HCPCS: 99213

== ENCOUNTER → 2024-03-11 09:14 | Outpatient (BNVA) | payer OTHER, SELFPAY | PROVIDERS: PCP Internal Medicine; Visit Provider Surgery | DX: Z85.3 Personal history of malignant neoplasm of breast (principal) | CPT/HCPCS: 99212 ==

== ENCOUNTER 2024-03-21 06:45 | Outpatient (REF) | payer OTHER, SELFPAY ==
[2024-03-21 07:37] LABS: Estimated Average Glucose 148 mg/dL; Hemoglobin A1C 182.8656 umol/L; Hemoglobin A1c % 6.8 % (<6.0); Total Hemoglobin (HGBA1C) 3585.9482 umol/L
[2024-03-21 07:54] LABS: Alanine Aminotransferase 51 U/L (0-31); Anion Gap 13 (12-20); Aspartate Amino Transferase 31 U/L (5-31); Blood Urea Nitrogen 12 mg/dL (9-16); Carbon Dioxide 23 mmol/L (22-29); Chloride 108 mmol/L (96-108); Cholesterol 109 mg/dL (<200); Estimated Glomerular Filt Rate > 60; Glucose Fasting 107 mg/dL (60-99); HDL Cholesterol 34 mg/dL (>40); LDL Cholesterol Calculated 61 mg/dL (<100); Potassium 3.7 mmol/L (3.3-5.1); Sodium 140 mmol/L (135-145); Triglycerides 73 mg/dL (<150)
[2024-03-21 08:05] LABS: Creatinine Urine 91.04 mg/dL; Microalbum/Creatinine Ratio Ur 31.8 ug/mg cr (<30)
[2024-03-21 08:09] LABS: Vitamin D 25-OH Total 47.2 ng/mL (>30)
== END 2024-03-21 06:46 | disposition home or self-care (01) ==
LOC: HO.LAB 06:45
PROVIDERS: PCP Internal Medicine; Visit Provider Internal Medicine
DX: E11.9 Type 2 diabetes mellitus without complications (principal); E78.00 Pure hypercholesterolemia, unspecified; M85.80 Other specified disorders of bone density and structure, unspecified site
CPT/HCPCS: 36415; 80048; 80061; 82043; 82306; 82570; 83036; 84450; 84460

== ENCOUNTER 2024-03-25 08:10 | Outpatient (AMB) | payer OTHER, SELFPAY ==
[2024-03-25 08:17] VITALS: BP 110/80; PULSE 83; RESP 16; TEMP 36.4; O2SAT 97; BMI 25.8
--- NOTE | 2024-03-25 08:17 | MHC.PC.OV ---
Vital Signs 03/25/24 08:17 Height 5 ft 8 in Weight 170 lb BMI 25.8 BP 110/80 Blood Pressure Location Lt brachial Position Sitting Respiration 16 Pulse 83 Pulse Source Pulse Oximeter Temp 97.5 F Temp Source Oral Pulse Oximetry (%) 97 Oxygen Delivery Method Room Air Intake Visit Reasons: 3 months f/up Intake Note: Pt is here today for her 3mo. f/u Allergies omeprazole [OMEPRAZOLE] Adverse Reaction (Intermediate, Verified 03/25/24 08:51) HEADACHE, DIARRHEA Medication List - Last Reconciled 03/25/24 by Bonnie Denton MD blood sugar diagnostic (FreeStyle Lite Strips) Check Blood sugar 2 times a day; cholecalciferol (vitamin D3) 50 mcg PO DAILY lancets Check blood sugar twice a day before meals metformin 1,000 mg PO BIDWMEAL 3 months simvastatin 20 mg PO BEDTIME tramadol 50 mg PO DAILY PRN Tobacco use date assessed: 03/25/24 Dental Screening Dental Screen Date: 03/25/24 HPI 3 months f/up HPI Details 58-year-old lady with diabetes mellitus, with microalbuminuria and dyslipidemia , here today for follow-up. Has been compliant with taking her medications, currently on metformin at 1000 mg/tab twice a day and simvastatin 20 mg at bedtime. She has been following recommended diet and has been more active, exercising daily. Hemoglobin A1c now has improved, currently at 6.8%, and fasting lipids and vitamin-D levels are within normal limits. 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 Sister Breast cancer Sister High blood pressure Social History Household Members: Other Household Members Other:: Lives in a episcopal community Housing: Other Housing Other:: community Are you a primary hospice care transitions coordinator to a significant other at home: No Do you presently have visiting nurse or other home services: No Alcohol intake: never Patient Tobacco Use Status: Never used Tobacco e-Cigarette/Vaping Use: Never Used service: No Current occupational status: employed Cognitive needs: No Hearing needs: No Vision needs: Yes Questionnaire PHQ-9 Over the last 2 weeks, how often have you been bothered by any of the following problems? 1. Little interest or pleasure in doing things: not at all 2. Feeling down, depressed, or hopeless: not at all 3. Trouble falling or staying asleep, or sleeping too much: not at all 4. Feeling tired or having little energy: not at all 5. Poor appetite or overeating: not at all 6. Feeling bad about yourself - or that you are a failure or have let yourself or your family down: not at all 7. Trouble concentrating on things, such as reading the newspaper or watching television: not at all 8. Moving or speaking so slowly that other people could have noticed. Or the opposite - being so fidgety or restless that you have been moving around a lot more than usual: not at all 9. Thoughts that you would be better off or of hurting yourself in some way: not at all Total score: 0 Depression Screening Interpretation: Negative Depression Screening Done: Yes 28962 - PHQ-9 Billing: Yes Source: Developed by Drs. Xander Waters, Lashay Forde, Mando Gomez and colleagues, with an educational khadra from [employer]. Thrive Questionnaire Date Thrive assessed: 03/25/24 I am a: Patient What is your living situation today?: I choose not to answer this question Within the past 12 months, did the food you bought not last and you didn't have the money to get more?: I choose not to answer this question Within the past 12 months, did you worry whether your food would run out before you got money to buy more?: I choose not to answer this question Do you have trouble paying for medicines?: I choose not to answer this question Do you have trouble getting transportation to medical appointments?: I choose not to answer this question Do you have trouble paying your heating and electricity bill?: I choose not to answer this question Do you have trouble taking care of your child, family member or friend?: I choose not to answer this question Do you have trouble with day-to-day activities such as bathing, preparing meals, shopping, managing finances, etc.?: I choose not to answer this question Are you currently unemployed and looking for a job?: I choose not to answer this question Are you interested in more education?: I choose not to answer this question Please select the resources that you would like help with: None Currently or been in a relationship where the following occur: I choose not to answer THRIVE Score: 0 AUDIT C Alcohol Use Questionnaire (AUDIT-C) 1. How often do you have a drink containing alcohol?: Monthly or less 2. How many drinks containing alcohol do you have on a typical day when you are drinking?: 1 or 2 3. How often do you have six or more drinks on one occasion?: Never Total Score: 1 AIME-7 AMB Questionnaire AIME-7 Date AIME - 7 assessed: 03/25/24 Feeling nervous, anxious, or on edge: 0 = Not at all Not being able to stop or control worryin = Not at all Worrying too much about different things: 0 = Not at all Trouble relaxin = Not at all Being so restless that it is hard to sit still: 0 = Not at all Becoming easily annoyed or irritable: 0 = Not at all Feeling afraid as if something awful might happen: 0 = Not at all Total AIME-7 score (0-4 normal; 5-9 mild; 10-14 moderate; 15-21 severe): 0 Source: Developed by Drs. Xander Waters, Lashay Forde, Mando Gomez and colleagues, with an educational khadra from [employer]. AIME-7 Assessment Billing AIME-7 Assessment Tool: AIME-7 Assessment 85949 Review of Systems Const Denies fever(s), Denies headache(s) and Denies weakness Eyes Details: Up-to-date with her eye exam for diabetes screening, goes to [facility] Denies change in vision ENT Reports Normal hearing present, Denies dizziness, Denies headache(s) and Denies nasal discharge Card Denies chest pain, Denies lightheadedness, Denies palpitations and Denies dyspnea Resp Denies chest congestion, Denies cough and Denies dyspnea GI Denies abdominal pain, Denies change in bowel habits and Denies heartburn Denies dysuria Musc Denies abnormal gait, Denies back pain, Denies arthralgias, Denies joint swelling, Denies muscle cramps, Denies numbness and Denies stiffness Skin/Breast Denies lesions and Denies rash Neuro Reports Normal hearing present, Denies abnormal gait, Denies dizziness, Denies headache(s), Denies numbness, Denies Sensory deficit (Neuro) and Denies weakness Psych Reports no additional complaints Endo Denies cold intolerance, Denies polyphagia, Denies polydipsia, Denies polyuria and Denies palpitations Edson/Lymph Reports no additional complaints Aller/Immun Reports no additional complaints Physical exam (Primary Care) Vital Signs: Last Vital Signs Temp 97.5 F 03/25/24 08:17 Pulse 83 03/25/24 08:17 Resp 16 03/25/24 08:17 BP 110/80 03/25/24 08:17 Pulse Ox 97 03/25/24 08:17 Oxygen Delivery Method Room Air 03/25/24 08:17 BMI result Body Mass Index 25.8 Tobacco/Smoking Status: Tobacco use Status Tobacco use date assessed 03/25/24 03/25/24 08:23 Patient Tobacco Use Status Never used Tobacco 03/25/24 08:23 e-Cigarette/Vaping Use Never Used 03/25/24 08:23 PHQ-9: PHQ-9 Score PHQ-9: Total score 0 03/25/24 08:56 Depression Screening Interpretation: Negative Thrive Assessment: Date of Thrive Assessment Date Thrive assessed 03/25/24 03/25/24 08:23 Currently or been in a relationship where the following occur: I choose not to answer Const Other: Alert oriented x3, no acute distress noted ambulatory with normal gait Orientation/consciousness: patient oriented x3 HENMT Face and sinus: Yes face symmetric Mouth: Normal oral and palatal mucosa present, oropharynx normal and moist mucous membranes Eyes General: appearance normal, both eyes and all related structures Neck Neck: Yes no lymphadenopathy and Yes supple Thyroid: other (Nonpalpable) Resp Auscultation: clear to auscultation bilaterally Cardio Other: S1-S2 present regular rate and rhythm GI Other: Normal bowel sounds, soft, nontender, no mass palpated General: Yes no CVA tenderness Back/Spine/Pelvis Back: no CVA tenderness and No back tenderness Skin General skin exam: no rashes or lesions noted Neuro General: patient oriented x3, gait normal, tone normal, moves all extremities, Normal light touch and pain sensation, no focal motor deficits and CN's II-XI intact bilaterally Cranial nerves: Yes Normal hearing present Gait exam (Neuro): Normal gait present Motor exam (neuro): 5/5 motor strength present throughout Sensory Exam: No Sensory deficit (Neuro) Extrem General: Yes full ROM, Yes no joint enlargement, Yes no pedal edema, Yes no calf tenderness and Yes normal gait Results Reviewed Results Reviewed: Laboratory Tests 12/20/23 03/21/24 03/21/24 12:00 07:00 07:06 Estimat Average Glucose 148 Hgb A1c (Clinic) 8.4 H Hemoglobin A1c % 6.8 H Urine Creatinine 91.04 Urine Microalbumin 29.0 Microalb/Creat Ratio 31.8 H Name: Herrera Terrell Sr Age/Sex: 58/F : 1965 Unit#: [id number] Attend Dr: Bonnie Denton MD Re03/21/24 Status: DEP [facility]F [facility] Disch: SPEC : [id number] GIA: 03/21/24 STATUS: COMP REQ : [id number] RECD: 03/21/[address]: Bonnie Denton MD COMP: 03/21/24 ENTERED: 03/21/[address]: ORDERED: Met Prof Fast, AST, ALT, Lipid Panel, Vitamin D 25-OH Test Result Flag Reference Sodium 140 135-145 mmol/L Potassium 3.7 3.3-5.1 mmol/L CL 108 96-108 mmol/L CO2 23 22-29 mmol/L Gap 13 12-20 BUN 12 9-16 mg/dL Creat 0.63 0.5-1.4 mg/dL eGFR > 60 Chronic Kidney Disease: Estimated GFR < 60 mL/min/1.73m2 Severe Kidney Disease: Estimated GFR < 15 mL/min/1.73m2 FBS 107 H 60-99 mg/dL A fasting glucose from 100-125 mg/dl is considered impaired (pre-diabetes). CA 9.0 8.4-10.2 mg/dL AST (GOT) 31 5-31 U/L ALT (GPT) 51 H 0-31 U/L Triglyceride 73 <150 mg/dL Desirable Triglyceride: less than 150 mg/dL Borderline High Triglyceride 150-199 mg/dL High Triglyceride: 200-499 mg/dL Very High Triglyceride: greater than or equal to 5OO mg/dL Cholesterol 109 <200 mg/dL Desirable Cholesterol: less than 200 mg/dL Borderline High Cholesterol: 200-239 mg/dL High Cholesterol: greater than 239 mg/dL LDL Calculated 61 <100 mg/dL Desirable LDL: less than 100 mg/dL Near Optimal/Above Optimal LDL: 110-129 mg/dL Borderline High LDL: 130-159 mg/dL High LDL: 160-189 mg/dL Very High LDL: greater than or equal to 190 mg/dL HDL 34 L >40 mg/dL Desirable HDL: greater than 40 mg/dL Note: This HDL assay may give artificially low results in patients with liver disease. Vit D 25-OH Tot 47.2 >30 ng/mL Health Based Reference Values* < 20 ng/mL Deficient 20-30 ng/mL Insufficient > 30 ng/mL Sufficient Coding Level of Care Code Est Pt Level 4 (00419) Complex EM visit Add On G2211 Diagnoses Hypercholesteremia E78.00 Type 2 diabetes mellitus without complication, without long-term current use of insulin E11.9 Diabetes mellitus with microalbuminuria, without long-term current use of insulin E11.29; R80.9 Left thyroid nodule E04.1 Additional Codes AIME-7 Assessment Billing - AIME-7 Assessment Tool: AIME-7 Assessment 76764 ([id number]) PHQ-9 - 20360 - PHQ-9 Billing: Yes ([id number]) Assessment & Plan Assessment & Plan (1) Hypercholesteremia: Code(s): E78.00 - Pure hypercholesterolemia, unspecified Category: Medical Plan: Continue simvastatin 20 mg at bedtime. In addition to adherence to low-cholesterol diet and getting regular exercise. Will repeat another fasting lipid panel in 3 months (2) Type 2 diabetes mellitus without complication, without long-term current use of insulin: Code(s): E11.9 - Type 2 diabetes mellitus without complications Category: Medical Plan: Recent lab results reviewed with patient, with sugar and hemoglobin A1c stable and at goal . Continued on metformin a 1000 mg twice a day. Reinforced diabetic diet and regular exercise with patient. Up-to-date with her diabetes retinopathy screening, goes to [facility]. Patient advised to inspect feet daily, for any signs of injury, callus or infection. Compliance with diet and regular exercise again stressed. Blood pressure goal is less than 130/80, goal LDL is less than 100 and goal hemoglobin A1c is less than 7% follow-up appointment made in---months, after fasting labs done. (3) Diabetes mellitus with microalbuminuria, without long-term current use of insulin: Code(s): E11.29 - Type 2 diabetes mellitus with other diabetic kidney complication; R80.9 - Proteinuria, unspecified Category: Medical Plan: Continued on metformin 1000 mg twice a day. Will start on lisinopril 5 mg 1 tablet daily (4) Left thyroid nodule: Comment: Currently followed by Code(s): E04.1 - Nontoxic single thyroid nodule Category: Medical Plan: Currently followed by Dr. Samuels at [facility]. Copy of updated office visit report requested Orders: Orders Hemoglobin A1c 06/05/24 E11.29 - Type 2 diabetes mellitus with other diabetic kidney complication, E78.00 - Pure hypercholesterolemia, unspecified, R80.9 - Proteinuria, unspecified Alanine Aminotransferase 06/05/24 E11.29 - Type 2 diabetes mellitus with other diabetic kidney complication, E78.00 - Pure hypercholesterolemia, unspecified, R80.9 - Proteinuria, unspecified Lipid Panel 06/05/24 E11.29 - Type 2 diabetes mellitus with other diabetic kidney complication, E78.00 - Pure hypercholesterolemia, unspecified, R80.9 - Proteinuria, unspecified Basic Metabolic Panel Fasting 06/05/24 E11.29 - Type 2 diabetes mellitus with other diabetic kidney complication, R80.9 - Proteinuria, unspecified Aspartate Amino Transferase 06/05/24 E11.29 - Type 2 diabetes mellitus with other diabetic kidney complication, E78.00 - Pure hypercholesterolemia, unspecified, R80.9 - Proteinuria, unspecified Medications: New lisinopril 5 mg PO DAILY 90 tabs 1RF
== END 2024-03-25 09:25 | disposition home or self-care (01) ==
PROVIDERS: PCP Internal Medicine; Visit Provider Internal Medicine
DX: E78.00 Pure hypercholesterolemia, unspecified (principal); E11.29 Type 2 diabetes mellitus with other diabetic kidney complication; R80.9 Proteinuria, unspecified; E04.1 Nontoxic single thyroid nodule

== ENCOUNTER → 2024-03-25 08:10 | Outpatient (BNVA) | payer OTHER, SELFPAY | PROVIDERS: PCP Internal Medicine; Visit Provider Internal Medicine | DX: E78.00 Pure hypercholesterolemia, unspecified (principal); E11.29 Type 2 diabetes mellitus with other diabetic kidney complication; R80.9 Proteinuria, unspecified; E04.1 Nontoxic single thyroid nodule | CPT/HCPCS: 96127; 99212 ==

== ENCOUNTER → 2024-03-31 08:36 | Outpatient (BNV) | payer OTHER, SELFPAY | PROVIDERS: PCP Internal Medicine; Visit Provider Internal Medicine | DX: R59.0 Localized enlarged lymph nodes (principal); Z85.3 Personal history of malignant neoplasm of breast; E04.1 Nontoxic single thyroid nodule | CPT/HCPCS: 77049 ==

== ENCOUNTER 2024-03-31 08:43 | Outpatient (REF) | payer OTHER, SELFPAY ==
[2024-03-31] MEDS: gadobutroL 10 ML VIAL IVPUSH (09:47)
== END 2024-03-31 08:44 | disposition home or self-care (01) ==
LOC: HO.MRI 08:43
PROVIDERS: PCP Internal Medicine; Visit Provider Surgery
DX: Z85.3 Personal history of malignant neoplasm of breast (principal)
CPT/HCPCS: 77049; A9585

== ENCOUNTER 2024-04-22 08:42 | Outpatient (AMB) | payer OTHER, SELFPAY ==
[2024-04-22 08:43] VITALS: BMI 25.8
--- NOTE | 2024-04-22 08:43 | MHC.OFFVIS ---
Vital Signs 04/22/24 08:43 Height 5 ft 8 in Weight 170 lb 0.01 oz BMI 25.8 Intake Visit Reasons: s/p MRI 03/31 Intake Note: This patient presents for Breast MRI results (03/31/2024). Pt c/o; reports no complaints. Sand Cutter Required: No Accompanied by: Self / Same As Patient Allergies omeprazole [OMEPRAZOLE] Adverse Reaction (Intermediate, Verified 04/22/24 08:48) HEADACHE, DIARRHEA Medication List - Last Reconciled 04/22/24 by Jean Claude Caba MD blood sugar diagnostic (FreeStyle Lite Strips) Check Blood sugar 2 times a day; cholecalciferol (vitamin D3) 50 mcg PO DAILY lancets Check blood sugar twice a day before meals lisinopril 5 mg PO DAILY metformin 1,000 mg PO BIDWMEAL 3 months simvastatin 20 mg PO BEDTIME tramadol 50 mg PO DAILY PRN HPI Comments Details: 58-year-old female, former patient of Dr. Henao returning for a breast cancer follow-up. She was evaluated on 02/21/2018 for an abnormal mammogram of right breast. Stereotactic guided core biopsy revealed a high-grade ductal carcinoma in situ. She underwent right breast lumpectomy with needle localization and radial ellipse mastopexy closure and right axillary sentinel node biopsy on 03/26/2018. Final pathology demonstrated a grade 2 infiltrating ductal carcinoma with maximal diameter of 7 mm, ER/AL negative, HER2 Asif positive. Six sentinel nodes were identified 1 of which had micrometastasis, 2.5 mm in greatest diameter (T1b N1 M0). She underwent chemotherapy including 4 cycles of AC followed by 4 cycles of Taxol, Herceptin, and pertuzumab, completed 09/30/2018. This was complicated by mild peripheral neuropathy in feet and fingertips. Radiation therapy was completed at [facility] on 01/06/2019. She tolerated this well. Her last mammogram of 08/07/2023 revealed no mammographic evidence of malignancy (BI-RADS 2). MRI of 03/31/2024 revealed stable 6 mm intramammary lymph node in the left breast noted back in 2020. No MR evidence of malignancy in the left breast. Right breast revealed postsurgical changes with no MR evidence of malignancy in the right breast. (BI-RADS 1 left breast, BI-RADS 2 right breast). 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 Sister Breast cancer Sister High blood pressure Social History Household Members: Other Household Members Other:: Lives in a jain community Housing: Other Housing Other:: community Are you a primary rehab care assistant to a significant other at home: No Do you presently have visiting nurse or other home services: No Alcohol intake: never Patient Tobacco Use Status: Never used Tobacco e-Cigarette/Vaping Use: Never Used service: No Current occupational status: employed Cognitive needs: No Hearing needs: No Vision needs: Yes Review of Systems Const All systems reviewed & are unremarkable except as noted in HPI and below Physical Exam Vital Signs: BMI result Body Mass Index 25.8 Exam deferred Assessment & Plan Assessment & Plan (1) History of infiltrating ductal carcinoma of breast: Code(s): Z85.3 - Personal history of malignant neoplasm of breast Category: Medical (2) Infiltrating ductal carcinoma of right breast: Comment: grade 2, ER / AL -, HER2/asif +, status post lumpectomy and right sentinel node bx , s/p chemo and radiation tx Code(s): C50.911 - Malignant neoplasm of unspecified site of right female breast Category: Medical Plan Patient returns for a routine follow-up breast examination after right breast lumpectomy and sentinel node biopsy for infiltrating ductal carcinoma, ER/AL negative, HER2 Asif positive. She feels well and denies any ongoing symptoms. Examination today reveals no evidence of recurrence disease in either breast. Her most recent mammogram dated 08/07/2023 revealed no mammographic evidence of malignancy (BI-RADS 2). She is scheduled for her next mammogram in August 2024. Results of the MRI of 03/31/2024 were reviewed today. No MR specific evidence of malignancy were identified in either breast. She will follow-up in 1 year, sooner p.r.n.. Coding Level of Care Code Est Pt Level 2 (40771) Diagnoses History of infiltrating ductal carcinoma of breast Z85.3 Infiltrating ductal carcinoma of right breast C50.911
== END 2024-04-22 08:55 | disposition home or self-care (01) ==
LOC: HO.HGS 08:43
PROVIDERS: PCP Internal Medicine; Visit Provider Surgery
DX: Z85.3 Personal history of malignant neoplasm of breast (principal); C50.911 Malignant neoplasm of unspecified site of right female breast
CPT/HCPCS: 99212

== ENCOUNTER → 2024-04-22 08:42 | Outpatient (BNVA) | payer OTHER, SELFPAY | PROVIDERS: PCP Internal Medicine; Visit Provider Surgery | DX: Z85.3 Personal history of malignant neoplasm of breast (principal) | CPT/HCPCS: 99212 ==

== ENCOUNTER 2024-06-10 08:28 | Outpatient (AMB) | payer OTHER, SELFPAY ==
--- NOTE | 2024-06-10 08:41 | MHC.PC.OV ---
Vital Signs 06/10/24 08:44 Height 5 ft 8 in Weight 168 lb BMI 25.5 BP 118/78 Blood Pressure Location Lt brachial Position Sitting Respiration 16 Pulse 78 Pulse Source Pulse Oximeter Temp 97.7 F Temp Source Oral Pulse Oximetry (%) 97 Oxygen Delivery Method Room Air Intake Visit Reasons: Annual PE Intake Note: Pt is here today for her PE: Last mammogram 08/07/23 Allergies omeprazole [OMEPRAZOLE] Adverse Reaction (Intermediate, Verified 06/10/24 09:07) HEADACHE, DIARRHEA Medication List - Last Reconciled 06/10/24 by Bonnie Denton MD blood sugar diagnostic (FreeStyle Lite Strips) Check Blood sugar 2 times a day; cholecalciferol (vitamin D3) 50 mcg PO DAILY lancets Check blood sugar twice a day before meals lisinopril 5 mg PO DAILY metformin 1,000 mg PO BIDWMEAL 3 months simvastatin 20 mg PO BEDTIME tramadol 50 mg PO DAILY PRN Tobacco use date assessed: 06/10/24 Dental Screening Dental Screen Date: 06/10/24 Did you have a dental visit in the last 12 months?: Yes Did you have a dental problem in the last 6 months where you did not have access to dental care?: No Was dental information given to patient?: Patient has dentist [facility] Medical History (Updated 06/10/24 @ 09:23 by Bonnie Denton MD) History of adenomatous polyp of colon Diabetes mellitus with microalbuminuria, without long-term current use of insulin Osteopenia Left thyroid nodule Mass of left lower extremity History of infiltrating ductal carcinoma of breast Sciatica of right side Menopause 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 Sister Breast cancer Sister High blood pressure Social History Household Members: Other Household Members Other:: Lives in a confucianist community Housing: Other Housing Other:: community Are you a primary aged or disabled carer to a significant other at home: No Do you presently have visiting nurse or other home services: No Alcohol intake: never Patient Tobacco Use Status: Never used Tobacco e-Cigarette/Vaping Use: Never Used service: No Current occupational status: employed Cognitive needs: No Hearing needs: No Vision needs: Yes Questionnaire Thrive Questionnaire Date Thrive assessed: 03/19/24 I am a: Patient What is your living situation today?: I choose not to answer this question Within the past 12 months, did the food you bought not last and you didn't have the money to get more?: I choose not to answer this question Within the past 12 months, did you worry whether your food would run out before you got money to buy more?: I choose not to answer this question Do you have trouble paying for medicines?: I choose not to answer this question Do you have trouble getting transportation to medical appointments?: I choose not to answer this question Do you have trouble paying your heating and electricity bill?: I choose not to answer this question Do you have trouble taking care of your child, family member or friend?: I choose not to answer this question Do you have trouble with day-to-day activities such as bathing, preparing meals, shopping, managing finances, etc.?: I choose not to answer this question Are you currently unemployed and looking for a job?: I choose not to answer this question Are you interested in more education?: I choose not to answer this question Please select the resources that you would like help with: None Currently or been in a relationship where the following occur: I choose not to answer THRIVE Score: 0 AIME-7 AMB Questionnaire AIME-7 Date AIME - 7 assessed: 03/25/24 Source: Developed by Drs. Xander Waters, Lashay Forde, Mando Gomez and colleagues, with an educational khadra from [employer]. Physical exam (Primary Care) Vital Signs: Last Vital Signs Temp 97.7 F 06/10/24 08:44 Pulse 78 06/10/24 08:44 Resp 16 06/10/24 08:44 BP 118/78 06/10/24 08:44 Pulse Ox 97 06/10/24 08:44 Oxygen Delivery Method Room Air 06/10/24 08:44 BMI result Body Mass Index 25.5 Tobacco/Smoking Status: Tobacco use Status Tobacco use date assessed 06/10/24 06/10/24 08:45 Patient Tobacco Use Status Never used Tobacco 06/10/24 08:41 e-Cigarette/Vaping Use Never Used 06/10/24 08:41 Thrive Assessment: Date of Thrive Assessment Date Thrive assessed 03/19/24 06/10/24 08:41 Currently or been in a relationship where the following occur: I choose not to answer Advance Care Planning discussion: Completed/Scanned Date of discussion: 06/10/24 Who was present: Patient Forms completed: Health Care Proxy Time spent: 16-45 minutes Actual minutes spent: 3 Results AMB Hemoglobin A1c AMB Hemoglobin A1c 6.0 % Last Edit by Joanne Arvizu CMA on 06/10/24 09:12 Results Reviewed Results Reviewed: Laboratory Last Values Hgb A1c (Clinic) 6.0 % (4.0-6.0) 06/10/24 09:11 Name: Herrera Terrell Sr Age/Sex: 58/F : 1965 Unit#: [id number] Attend Dr: Xi Pretty MD Re06/09/24 Status: REG R Location: [facility]C Disch: SPEC : [id number] GIA: 06/09/24 STATUS: COMP REQ : [id number] RECD: 06/09/[address]: Xi Pretty MD COMP: 06/09/24 ENTERED: 06/09/[address]: Bonnie Denton MD ORDERED: CBC Auto Diff Test Result Flag Reference WBC 7.3 4.8-10.8 X10*3/uL RBC 4.92 4.20-5.50 X10*6/uL HGB 14.7 12.0-16.0 g/dl HCT 44.8 37.0-47.0 % MCV 91.1 80.0-98.0 fL MCH 29.9 27.0-33.0 pg MCHC 32.8 31.0-35.0 g/dl RDW 13.3 11.0-16.0 % PLT 236 160-400 X10*3/uL MPV 10.4 9.4-12.3 fL Neut Pct Auto 60.6 45-73 % ImGran Pct Auto 0.4 0.0-0.4 % Lymp Pct Auto 26.4 20-40 % [place] Pct Auto 8.3 2-11 % Eos Pct Auto 3.8 0-4 % Baso Pct Auto 0.5 0-2 % NRBC Pct Auto 0.0 0.0-0.2 /100WBC ANC Neut Abs # 4.4 2.0-8.3 x10*3/uL ImGran Abs Auto 0.03 0.00-0.03 X10*3/uL Lymph Abs Auto 1.9 1.2-4.9 X10*3/uL [place] Abs Auto 0.6 0.1-1.2 X10*3/uL Eos Abs Auto 0.3 0.0-0.4 X10*3/uL Baso Abs Auto 0.0 0.0-0.2 X10*3/uL NRBC Abs Auto 0.000 0.0-0.012 X10*3/uL Name: Herrera Terrell Sr Age/Sex: 58/F : 1965 Unit#: [id number] Attend Dr: Xi Pretty MD Re06/09/24 Status: REG [facility] Location: [facility] Disch: SPEC : [id number] GIA: 06/09/24 STATUS: COMP REQ : [id number] RECD: 06/09/24 [facility] DR: Xi Pretty MD COMP: 06/09/24 ENTERED: 06/09/24 [facility] DR: Bonnie Denton MD ORDERED: CMP Test Result Flag Reference Sodium 141 135-145 mmol/L Potassium 4.1 3.3-5.1 mmol/L CL 106 96-108 mmol/L CO2 26 22-29 mmol/L Gap 13 12-20 BUN 18 H 9-16 mg/dL Creat 0.68 0.5-1.4 mg/dL Estimated CrCl 97.3 Provided height and weight: 172.72 cm, 77.2 kg. eGFR (calculated from the MDRD study equation) and eCrCl (calculated from the Cockcroft-Gault equation) are based on different parameters and may not yield comparable results. If eCrCl result is absurd, please check patient's height/weight. eGFR > 60 Chronic Kidney Disease: Estimated GFR < 60 mL/min/1.73m2 Severe Kidney Disease: Estimated GFR < 15 mL/min/1.73m2 Glucose, Random 218 H 60-115 mg/dL CA 8.8 8.4-10.2 mg/dL Total Bili 0.3 0.0-1.0 mg/dL AST (GOT) 26 5-31 U/L ALT (GPT) 51 H 0-31 U/L Protein, Total 6.9 6.5-8.0 g/dL Alb 4.2 3.5-5.0 g/dL Alk Phos 56 39-117 U/L Coding Diagnoses History of adenomatous polyp of colon Z86.0101 Hypercholesteremia E78.00 Diabetes mellitus with microalbuminuria, without long-term current use of insulin E11.29; R80.9 Advanced directives, counseling/discussion Z71. Annual visit for general adult medical examination with abnormal findings Z. Additional Codes Vital Signs *Quality* - Advance Care Planning discussion: Completed/Scanned ([id number]) Vital Signs *Quality* - Time spent: 16-45 minutes ([id number]) Assessment & Plan Assessment & Plan (1) History of adenomatous polyp of colon: Code(s): Z86.0101 - Personal history of adenomatous and serrated colon polyps Category: Medical (2) Hypercholesteremia: Code(s): E78.00 - Pure hypercholesterolemia, unspecified Category: Medical (3) Diabetes mellitus with microalbuminuria, without long-term current use of insulin: Code(s): E11.29 - Type 2 diabetes mellitus with other diabetic kidney complication; R80.9 - Proteinuria, unspecified Category: Medical (4) Advanced directives, counseling/discussion: Code(s): Z71.89 - Other specified counseling (5) Annual visit for general adult medical examination with abnormal findings: Code(s): Z00.01 - Encounter for general adult medical examination with abnormal findings Orders: Orders AMB Hemoglobin A1c Today E11.29 - Type 2 diabetes mellitus with other diabetic kidney complication, R80.9 - Proteinuria, unspecified Alanine Aminotransferase 10/06/24 E11.29 - Type 2 diabetes mellitus with other diabetic kidney complication, E78.00 - Pure hypercholesterolemia, unspecified, R80.9 - Proteinuria, unspecified Aspartate Amino Transferase 10/06/24 E11.29 - Type 2 diabetes mellitus with other diabetic kidney complication, E78.00 - Pure hypercholesterolemia, unspecified, R80.9 - Proteinuria, unspecified Basic Metabolic Panel Fasting 10/06/24 E11.29 - Type 2 diabetes mellitus with other diabetic kidney complication, E78.00 - Pure hypercholesterolemia, unspecified, R80.9 - Proteinuria, unspecified Lipid Panel 10/06/24 E11.29 - Type 2 diabetes mellitus with other diabetic kidney complication, E78.00 - Pure hypercholesterolemia, unspecified, R80.9 - Proteinuria, unspecified Hemoglobin A1c 10/06/24 E11.29 - Type 2 diabetes mellitus with other diabetic kidney complication, E78.00 - Pure hypercholesterolemia, unspecified, R80.9 - Proteinuria, unspecified Referrals Gastroenterology Referral Z86.0101 - Personal history of adenomatous and serrated colon polyps Medications: Refilled blood sugar diagnostic (FreeStyle Lite Strips) Check Blood sugar 2 times a day; 200 ea 4RF E11.9 - Type 2 diabetes mellitus without complications cholecalciferol (vitamin D3) 50 mcg PO DAILY 90 caps 1RF Z78.0 - Asymptomatic menopausal state lisinopril 5 mg PO DAILY 90 tabs 4RF metformin 1,000 mg PO BIDWMEAL 180 tabs 4RF 3 months simvastatin 20 mg PO BEDTIME 90 tabs 4RF
[2024-06-10 08:44] VITALS: BP 118/78; PULSE 78; RESP 16; TEMP 36.5; O2SAT 97; BMI 25.5
== END 2024-06-10 09:43 | disposition home or self-care (01) ==
LOC: HO.HMCC 08:29
PROVIDERS: PCP Internal Medicine; Visit Provider Internal Medicine
DX: E11.29 Type 2 diabetes mellitus with other diabetic kidney complication (principal); R80.9 Proteinuria, unspecified

== ENCOUNTER → 2024-06-10 08:28 | Outpatient (BNVA) | payer OTHER, SELFPAY | PROVIDERS: PCP Internal Medicine; Visit Provider Internal Medicine | DX: Z00.01 Encounter for general adult medical examination with abnormal findings (principal); Z71.89 Other specified counseling; E78.00 Pure hypercholesterolemia, unspecified; E11.29 Type 2 diabetes mellitus with other diabetic kidney complication; R80.9 Proteinuria, unspecified; Z79.84 Long term (current) use of oral hypoglycemic drugs; Z79.899 Other long term (current) drug therapy; Z86.0101 Personal history of adenomatous and serrated colon polyps | CPT/HCPCS: 83036; 99396; 99497 ==

== ENCOUNTER 2024-08-12 09:12 | Outpatient (REF) | payer OTHER, SELFPAY | END 2024-08-12 09:13 | disposition home or self-care (01) | LOC: HO.MAMMO 09:12 | PROVIDERS: PCP Internal Medicine; Visit Provider Internal Medicine | DX: Z12.31 Encounter for screening mammogram for malignant neoplasm of breast (principal) | CPT/HCPCS: 77063; 77067 ==

== ENCOUNTER → 2024-08-12 09:30 | Outpatient (BNV) | payer OTHER, SELFPAY | PROVIDERS: PCP Internal Medicine; Visit Provider Internal Medicine | DX: Z12.31 Encounter for screening mammogram for malignant neoplasm of breast (principal) | CPT/HCPCS: 77063; 77067 ==

== ENCOUNTER 2024-11-10 07:05 | Outpatient (REF) | payer OTHER, SELFPAY ==
--- OUTSIDE RECORDS SUMMARY | 2024-11-10 07:10 | XMS_ITS | Encounter Summary ---
Author Organization [facility] Address [address] [place] [address] [place] [phone] Phone Care Team Providers Care Stretcher Leveler Operator Name Role Phone Bonnie Denton MD Primary Care Provider Encounter Details Date Type Department Care Team (Late st Contact Info) Description 02/16/2023 Procedure Pass [facility] [address] [place] [address] Social History Tobacco Use Types Packs/Day Years Used Date Smoking Tobacco: Never Smokeless Tobacco: Never Alcohol Use Standard Drinks/Week Comments Not Currently 0 (1 standard drink = 0.6 oz pur e alcohol) rare Education Answer Date Recorded Are you interested in more education? Not on ailyn e 10/27/2022 Are you concerned about learning? Not on file 10/27/2022 No 10/27/2022 No 10/27/2022 Digital Access Answer Date Recorded No 10/27/2022 No 10/27/2022 Reliable internet access at home? Not on file 10/27/2022 Device with a working camera? Not on file Intimate Partner Violence Answer Date R ecorded Are you denied basic needs s uch as food, clothing, or medical care? No 02/16/2023 In the past 12 months have y ou been in a relationship with a person who hurts, threatens, or tries to control you? No 02/16/2023 Are you denied basic needs s uch as food, clothing, or medical care? No 02/16/2023 In the past 12 months have y ou been in a relationship with a person who hurts, threatens, or tries to control you? No 02/16/2023 Comments Unknown Sex and Gender Information Value Date Recorded Sex Assigned at Not on file Legal Sex Female 9:48 AM EDT Gender Identity Not on file Sexual Orientation Not on file documented as of this encounter Plan of Treatment Upcoming Encounters Date Type Department Care Team (Late st Contact Info) Description 03/24/2025 8:30 AM EST Office Visit [facility] [address] [place] [address] [place] [address] Jean Claude Samuels DO [address] [place] [id number] [email or web address] documented as of this encounter Visit Diagnoses Not on filedocumented in this encounter Care Teams Stretcher Leveler Operator Relationship Specialty Start Date End Date Bonnie Denton MD 1962 [facility] [place] [address] PCP - General Internal Medicine 10/25/22 documented as of this encounter Additional Source Comments The information contained in this document represents components of the legal health record. It is not the complete legal health record.[facility]
--- OUTSIDE RECORDS SUMMARY | 2024-11-10 07:10 | XMS_ITS | Clinical Summary ---
Author Organization [facility] Address [address] [place] [phone] Phone Care Team Providers Care Shoe Repairer Name Role Phone Bonnie Denton MD Primary Care Provider Allergies Active Allergy Reactions Criticality Noted Date Comments Omeprazole 01/25/2023 Medications cholecalciferol (VITAMIN D3) 2,000 unit capsule Take 1 capsule by mouth every morning. 12/22/2022 Active metFORMIN (GLUCOPHAGE-XR) 500 MG 24 hr tablet Take 1,000 mg by mouth 2 (two) times a day. 11/14/2022 Active simvastatin (ZOCOR) 20 MG tablet Take 20 mg by mouth nightly at bedtime. 12/21/2022 Active FREESTYLE LITE Strp strips CHECK BLOOD SUGAR 2 TIMES A DAY 12/21/2022 Active FREESTYLE 28 gauge lancets CHECK BLOOD SUGAR TWICE A DAY BEFORE MEALS 12/22/2022 Active traMADoL (ULTRAM) 50 mg tablet Take 50 mg by mouth as needed for pain (specific location in comments). Active Active Problems Problem Noted Date Diagnosed Date Osteopenia of lumbar spine 04/26/2023 Assessment & Plan (02/21/2024 9:50 AM EST): The patient is taking vitamin D supplements. She gets adequate calcium intake in her diet. She is doing weightbearing exercises. She does not require antiresorptive medications because her FRAX score is in a good range. She is due for repeat DXA scan on 03/06/2025. This has been requested. Assessment & Plan (12/06/2023 3:42 PM EDT): She should continue calcium in her diet. Continue vitamin D. She should do weightbearing exercises this can be lifting weights. She can do jumping jacks if she tolerates. She can play basketball jump up and down that will helps. She can use a weight vest. She is due for repeat DXA scan on 03/06/2025. Presently she is not a candidate for antiresorptive medications because of FRAX score is not elevated. She does not use hormone replacement therapy and I suggested that she can talk to her muck farmer regarding use which will be beneficial as for her bones. Assessment & Plan (06/19/2023 9:11 AM EDT): The patient takes vitamin D 2000 units daily does not take any calcium supplements. Does get calcium in her diet. She does not feel that she eats a lot of dairy or greens for that matter but her 24 urine calcium output is elevated. PTH has been in the reference range vitamin D in the reference range. She does not have renal insufficiency so at this point we will keep an eye on this may be repeat the PTH eventually. Possibly get phosphorus levels just to make sure that is not deficient. In the meantime she just should continue dietary calcium intake because in the absence of pathology this means that she is getting adequate calcium intake. She should continue vitamin D and do weightbearing exercises. She is not due for repeat DXA scan until 03/06/2025. Assessment & Plan (04/26/2023 9:30 AM EDT): The patient has osteopenia FRAX score not elevated. She does take cholecalciferol 2000 units daily. Risk factors for osteoporosis includes age and menopause. She does not appear to have other risk factors. At this point we will do biochemical workup for evaluation of secondary causes of osteopenia. Nontoxic multinodular goiter 01/25/2023 Assessment & Plan (02/21/2024 10:30 AM EST): Patient repeated ultrasound on 11/22/2023 the majority of the nodules are smaller than before. The left lower pole nodules that were previously biopsied and found to be benign both are decreased in size and do not require repeat biopsy. There was right lobe nodule subcentimeter nodule which was previously biopsied because it was a TI-RADS 5 classification. This nodule appears to have decreased in size. So at this point the patient should repeat ultrasound in 2 years time by 11/21/2025. Assessment & Plan (12/06/2023 3:57 PM EDT): The ultrasound was done at [facility] on 11/22/2023. Is going to take another 3 weeks for the radiologist to read the report. I will give the patient a follow-up for the ultrasound in approximately 4 weeks but I may not have an opening. Assessment & Plan (06/19/2023 9:09 AM EDT): The patient does not have Reno's multiple thyroid nodules the right subcentimeter nodule that previously measured 0.7 x 0.6 x 0.5 cm was nondiagnostic but this was a TI-RADS 5 nodule. We opted to repeat the ultrasound a year from the last which will be around 10/11/2023 this should be done at [facility]. Assessment & Plan (04/26/2023 9:28 AM EDT): The left lobe nodules were found to be benign. The right midpole nodule was was classified as TI-RADS 5 nodule and it is quite small was biopsied but was nondiagnostic because they could not get enough cells. So at this point we can try to repeat the biopsy or just repeat the ultrasound in a year after the initial ultrasound which in this case will be 10/11/2023, to see if it grows and if it does grow nodule could be biopsied at that point. I did inform the patient that we normally wait 3 months after initial biopsy is to repeat biopsy. The reason for this is because it is inflammation of the cells and it can lead to atypical cells. At this point it is best to wait and repeat ultrasound in 6 months. She should have the ultrasound done at [facility] where it was done. Assessment & Plan (01/25/2023 4:06 PM EST): The patient has a nontoxic multinodular goiter. I informed her that multiple thyroid nodules it is a good sign of the possibility of benign nodules. Also normal TSH is associated with benign findings. Reno's thyroiditis and autoimmune disorders associated with papillary thyroid carcinoma so I will check TPO antibodies. I have informed her that 95% of all thyroid nodules are benign nevertheless we will have to refer her for ultrasound-guided fine-needle aspiration of some other nodules that were classified as TI-RADS 4 which is moderately suspicious for malignancy and TI-RADS 5 which is high risk of malignancy. The right mid pole nodule which is subcentimeter in size is classified as a TI-RADS 5 and I will request that radiology biopsy this nodule if at all possible. She has 2 left inferior nodules 1 measuring 1.8 x 0.9 x 1.9 which was classified as TI-RADS 5 and the second measuring 1.9 x 1.4 x 1.7 classified as TI-RADS 4. Menopausal and postmenopausal disorder Assessment & Plan (01/25/2023 4:10 PM EST): This is a patient with history of breast carcinoma who underwent chemotherapy with high doses of dexamethasone and received cytotoxic agents which can result in osteopenia/osteoporosis. She has not had any fractures. I will refer her for DXA scan for evaluation of osteopenia/osteoporosis. Will do this at [facility]. Family History Medical History Relation Comments Atrial fibrillation Father Hypertension Mother Relation Status Comments Father Mother Alive Social History Tobacco Use Types Packs/Day Years Used Date Smoking Tobacco: Never Smokeless Tobacco: Never Tobacco Cessation:Counseling Given: Not Answered Alcohol Use Standard Drinks/Week Comments Not Currently [...] on file Sexual Orientation Not on file Last Filed Vital Signs Vital Sign Reading Time Taken Comments Blood Pressure 122/84 02/21/2024 9:41 AM EST Pulse 73 02/21/2024 9:41 AM EST Temperature 36.3 C (97.4 F) 04/26/2023 8:59 AM EDT Respiratory Rate - - Oxygen Saturation 99% 02/21/2024 9:41 AM EST Inhaled Oxygen Concentration - - Weight 77.8 kg (171 lb 9.6 oz) 02/21/2024 9:41 A M EST Height 167.6 cm (5' 6 ) 02/21/2024 9:41 AM EST Body Mass Index 27.7 02/21/2024 9:41 AM EST Plan of Treatment Upcoming Encounters Date Type Department Care Team (Late st Contact Info) Description 03/24/2025 8:30 AM EST Office Visit [facility] [address] [place] [phone] Jean Claude Samuels DO [address] [place] [phone] [email or web address] Health Maintenance Due Date Last Done Comments Adult Td,Tdap Booster 1964 DEPRESSION SCREENING 1976 HEPATITIS C SCREENING 1982 HIV ONE-TIME SCREENING (18-6 5 YEARS) 1982 PAP SMEAR 1985 MAMMOGRAM 2004 COLOGUARD 2009 COLONOSCOPY 2009 COLORECTAL CANCER SCREENING 2009 FIT TEST 2009 FOBT 2009 SIGMOIDOSCOPY 2009 VIRTUAL COLONOSCOPY 2009 PNEUMOCOCCAL VACCINES (50+ years) (1 of 1 - PCV) 2014 ZOSTER VACCINES (1 of 2) 2014 INFLUENZA VACCINE (#1) 2024 COVID-19 VACCINE (1 - 2024-2 6 season) 2024 CREATININE LEVEL 11/12/2024 11/13/2023, 04/30/2023, 04/29/2023 SCREENING FOR DIABETES 01/20/2026 01/20/2023 LIPID PANEL 01/21/2028 01/20/2023, 01/20/2023, 01/20/2023 RSV VACCINE (1 - 1-dose 75+ series) 11/03/2039 SMOKING STATUS SCREENING (On ce After 26 Yrs) Completed 02/21/2024 HEPATITIS A VACCINES Aged Out No long er eligible based on patient's age to complete this topic HIB VACCINES Aged Out No longer eligi ble based on patient's age to complete this topic MENINGOCOCCAL VACCINES (ACWY) Aged Out No longer eligible based on patient's age to complete this topic MENINGOCOCCAL VACCINES (B) Aged Out N o longer eligible based on patient's age to complete this topic Medical Devices Not on file Procedures Procedure Name Priority Date/Time Associated Diagnosis Comments COMPREHENSIVE METABOLIC PANEL Routine 11/13/2023 8:44 AM EDT Osteopenia of lumbar spine OUTSIDE HDL Routine 01/20/2023 OUTSIDE GLUCOSE FASTING Routine 01/20/2023 from Last 3 Months or Most Recently Relevant to Health Maintenance Results * (ABNORMAL) Comprehensive metabolic panel (11/13/2023 8:44 AM EDT) SODIUM 138 133 - 146 mmol/L [facility] POTASSIUM 3.8 3.3 - 5.1 mmol/L [facility] CHLORIDE 101 96 - 108 mmol/L [facility] CO2 25 21 - 35 mmol/L [facility] BUN 11 6 - 19 mg/dL [facility] CREATININE 0.50 0.5 - 1.5 mg/dL [facility] GLUCOSE 188(H) 70 - 99 mg/dL [facility] ALBUMIN 4.2 3.9 - 4.8 g/dL [facility] TOTAL PROTEIN 7.4 6.5 - 8.0 g/dL [facility] CALCIUM 8.9 8.4 - 10.3 mg/dL [facility] ALKALINE PHOSPHATASE 78 39 - 117 U/L [facility] TOTAL BILIRUBIN 0.4 0.0 - 1.2 mg/dL [facility] AST 25 0 - 37 U/L [facility] ALT 50(H) 0 - 40 U/L [facility] GLOBULIN 3.2 1 - 4.8 g/dL [facility] EGFR 108 >59 mL/min/1.7 3m2 [facility] Comment:Estimated glomerular filtration rate calculated using the CKD-EPI refit equation. ANION GAP 16 10 - 20 mmol/L [facility] Blood 11/13/2023 8:44 AM EDT 11/13/2023 8:51 AM EDT Jean Claude Samuels DO LAB BLOOD ORDERABLES Final Resul t [facility] [address] [place] [address] * (ABNORMAL) Outside Glucose,Fasting (01/20/2023) Glucose, fasting - External 147(A) 65 - 99 mg/dL Historical Provider MD LAB BLOOD ORDERABLES Catherine l Result * (ABNORMAL) Outside HDL (01/20/2023) HDL - External 38(A) 40 - 80 mg/dL Historical Provider MD LAB BLOOD ORDERABLES Catherine l Result from Last 3 Months or Most Recently Relevant to Health Maintenance Insurance [facility] ACO ACO ACO ACO ACO ACO Care Teams Shoe Repairer Relationship Specialty Start Date End Date Bonnie Denton MD [facility] [place] [id number] PCP - General Internal Medicine 10/25/22 Additional Source Comments The information contained in this document represents components of the legal health record. It is not the complete legal health record.[facility]
--- OUTSIDE RECORDS SUMMARY | 2024-11-10 07:10 | XMS_ITS | Encounter Summary ---
Author Organization [facility] Address [address] [place] [address] [place] [phone] Phone Care Team Providers Care Core Laying Machine Operator Name Role Phone Bonnie Denton MD Primary Care Provider Encounter Details Date Type Department Care Team (Late st Contact Info) Description 05/01/2023 Transcribe Orders [facility] Specimen Processing [address] [place] [address] Bonnie Denton MD [facility] [place] [id number] Social History Tobacco Use Types Packs/Day Years [...] 8:30 AM EST Office Visit [facility] [address] [place] [address] Jean Claude Samuels DO [address] [place] [address] [email or web address] documented as of this encounter Visit Diagnoses Not on filedocumented in this encounter Care Teams Core Laying Machine Operator Relationship Specialty Start Date End Date Bonnie Denton MD [address] [facility] [place] [address] PCP - General Internal Medicine 10/25/22 documented as of this encounter Additional Source Comments The information contained in this document represents components of the legal health record. It is not the complete legal health record.[facility]
[2024-11-10 08:03] LABS: Alanine Aminotransferase 50 U/L (0-31); Anion Gap 10 (12-20); Aspartate Amino Transferase 34 U/L (5-31); Blood Urea Nitrogen 16 mg/dL (9-16); Calcium 9.0 mg/dL (8.4-10.2); Carbon Dioxide 26 mmol/L (22-29); Chloride 107 mmol/L (96-108); Cholesterol 144 mg/dL (<200); Estimated Glomerular Filt Rate > 60; HDL Cholesterol 43 mg/dL (>40); Potassium 3.8 mmol/L (3.3-5.1); Sodium 139 mmol/L (135-145); Triglycerides 78 mg/dL (<150)
== END 2024-11-10 07:06 | disposition home or self-care (01) ==
LOC: HO.LAB 07:05
PROVIDERS: PCP Internal Medicine; Visit Provider Internal Medicine
DX: E11.29 Type 2 diabetes mellitus with other diabetic kidney complication (principal); R80.9 Proteinuria, unspecified; E78.00 Pure hypercholesterolemia, unspecified
CPT/HCPCS: 36415; 80048; 80061; 83036; 84450; 84460

== ENCOUNTER 2024-11-11 09:21 | Outpatient (AMB) | payer OTHER, SELFPAY ==
[2024-11-11 09:49] VITALS: BP 102/60; PULSE 74; RESP 16; TEMP 36.6; O2SAT 97; BMI 25.3
--- NOTE | 2024-11-11 09:49 | MHC.PC.OV ---
Vital Signs 11/11/24 09:49 Height 5 ft 8 in Weight 166 lb 8 oz BMI 25.3 BP 102/60 Blood Pressure Location Lt brachial Position Sitting Respiration 16 Pulse 74 Pulse Source Pulse Oximeter Temp 97.9 F Temp Source Oral Pulse Oximetry (%) 97 Oxygen Delivery Method Room Air Intake Visit Reasons: 4m f/u Intake Note: Pt is here today for her 4mo. f/u Allergies omeprazole (OMEPRAZOLE) Adverse Reaction (Intermediate, Verified 11/11/24 10:05) HEADACHE, DIARRHEA Medication List - Last Reconciled 11/11/24 by Bonnie Denton MD blood sugar diagnostic (FreeStyle Lite Strips) Check Blood sugar 2 times a day; cholecalciferol (vitamin D3) 50 mcg PO DAILY lancets Check blood sugar twice a day before meals lisinopril 5 mg PO DAILY metformin 1,000 mg PO BIDWMEAL 3 months simvastatin 20 mg PO BEDTIME tramadol 50 mg PO DAILY PRN Tobacco use date assessed: 11/11/24 Dental Screening Dental Screen Date: 11/11/24 Did you have a dental visit in the last 12 months?: Yes Did you have a dental problem in the last 6 months where you did not have access to dental care?: No Was dental information given to patient?: Patient has dentist HPI 4m f/u HPI Details 59-year-old lady with history of diabetes mellitus, hypertension and dyslipidemia, here today for her follow-up. She is currently taking lisinopril 5 mg daily, metformin 1000 mg twice a day with meals, simvastatin 20 mg at bedtime. Latest fasting labs showed hemoglobin A1c at 6.5%, with positive microalbuminuria , and fasting lipids showed results within normal limits. Blood pressure stable and controlled on present treatment with lisinopril 5 mg daily Up-to-date with her diabetes retinopathy screening, goes to [facility] with no retinopathy seen earlier this year She engages in regular physical activity, although she reports less activity during her recent vacation. She denies any chest pain or neurological symptoms such as numbness or tingling in her extremities. 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 Sister Breast cancer Sister High blood pressure Social History Household Members: Other Household Members Other:: Lives in a scientology community Housing: Other Housing Other:: community Are you a primary director day care center to a significant other at home: No Do you presently have visiting nurse or other home services: No Alcohol intake: never Patient Tobacco Use Status: Never used Tobacco e-Cigarette/Vaping Use: Never Used service: No Current occupational status: employed Cognitive needs: No Hearing needs: No Vision needs: Yes Questionnaire PHQ-9 Over the last 2 weeks, how often have you been bothered by any of the following problems? 1. Little interest or pleasure in doing things: not at all 2. Feeling down, depressed, or hopeless: not at all 3. Trouble falling or staying asleep, or sleeping too much: not at all 4. Feeling tired or having little energy: not at all 5. Poor appetite or overeating: not at all 6. Feeling bad about yourself - or that you are a failure or have let yourself or your family down: not at all 7. Trouble concentrating on things, such as reading the newspaper or watching television: not at all 8. Moving or speaking so slowly that other people could have noticed. Or the opposite - being so fidgety or restless that you have been moving around a lot more than usual: not at all 9. Thoughts that you would be better off or of hurting yourself in some way: not at all Total score: 0 Depression Screening Interpretation: Negative Depression Screening Done: Yes Source: Developed by Drs. Xander L. JtLashay singh, Mando Gomez and colleagues, with an educational khadra from [email or web address]. Thrive Questionnaire Date Thrive assessed: 03/19/24 I am a: Patient What is your living situation today?: I choose not to answer this question Within the past 12 months, did the food you bought not last and you didn't have the money to get more?: I choose not to answer this question Within the past 12 months, did you worry whether your food would run out before you got money to buy more?: I choose not to answer this question Do you have trouble paying for medicines?: I choose not to answer this question Do you have trouble getting transportation to medical appointments?: I choose not to answer this question Do you have trouble paying your heating and electricity bill?: I choose not to answer this question Do you have trouble taking care of your child, family member or friend?: I choose not to answer this question Do you have trouble with day-to-day activities such as bathing, preparing meals, shopping, managing finances, etc.?: I choose not to answer this question Are you currently unemployed and looking for a job?: I choose not to answer this question Are you interested in more education?: I choose not to answer this question Please select the resources that you would like help with: None Currently or been in a relationship where the following occur: I choose not to answer THRIVE Score: 0 AUDIT C Alcohol Use Questionnaire (AUDIT-C) 1. How often do you have a drink containing alcohol?: Monthly or less 2. How many drinks containing alcohol do you have on a typical day when you are drinking?: 1 or 2 3. How often do you have six or more drinks on one occasion?: Never Total Score: 1 AIME-7 AMB Questionnaire AIME-7 Date AIME - 7 assessed: 03/25/24 Feeling nervous, anxious, or on edge: 0 = Not at all Not being able to stop or control worryin = Not at all Worrying too much about different things: 0 = Not at all Trouble relaxin = Not at all Being so restless that it is hard to sit still: 0 = Not at all Becoming easily annoyed or irritable: 0 = Not at all Feeling afraid as if something awful might happen: 0 = Not at all Total AIME-7 score (0-4 normal; 5-9 mild; 10-14 moderate; 15-21 severe): 0 Source: Developed by Drs. Xander Waters, Lashay Forde, Mando Gomez and colleagues, with an educational khadra from [email or web address]. Review of Systems Const Denies fever(s), Denies headache(s) and Denies weakness Eyes Details: Up-to-date with her eye exam for diabetes screening, goes to [facility] Denies change in vision ENT Reports Normal hearing present, Denies dizziness, Denies headache(s) and Denies nasal discharge Card Denies chest pain, Denies lightheadedness, Denies palpitations and Denies dyspnea Resp Denies chest congestion, Denies cough and Denies dyspnea GI Denies abdominal pain, Denies change in bowel habits and Denies heartburn Denies dysuria Musc Denies abnormal gait, Reports back pain (Recurrent), Denies arthralgias, Denies joint swelling, Denies muscle cramps, Denies numbness and Denies stiffness Skin/Breast Denies lesions and Denies rash Neuro Reports Normal hearing present, Denies abnormal gait, Denies dizziness, Denies headache(s), Denies numbness, Denies Sensory deficit (Neuro) and Denies weakness Psych Reports no additional complaints Endo Denies cold intolerance, Denies polyphagia, Denies polydipsia, Denies polyuria and Denies palpitations Edson/Lymph Reports no additional complaints Aller/Immun Reports no additional complaints Physical exam (Primary Care) Vital Signs: Last Vital Signs Temp 97.9 F 11/11/24 09:49 Pulse 74 11/11/24 09:49 Resp 16 11/11/24 09:49 BP 102/60 11/11/24 09:49 Pulse Ox 97 11/11/24 09:49 Oxygen Delivery Method Room Air 11/11/24 09:49 BMI result Body Mass Index 25.3 Tobacco/Smoking Status: Tobacco use Status Tobacco use date assessed 11/11/24 11/11/24 09:55 Patient Tobacco Use Status Never used Tobacco 11/11/24 09:49 e-Cigarette/Vaping Use Never Used 11/11/24 09:49 PHQ-9: PHQ-9 Score PHQ-9: Total score 0 11/11/24 10:29 Depression Screening Interpretation: Negative Thrive Assessment: Date of Thrive Assessment Date Thrive assessed 03/19/24 11/11/24 09:49 Currently or been in a relationship where the following occur: I choose not to answer Const Other: Alert oriented x3, no acute distress noted ambulatory with normal gait HENMT Face and sinus: Yes face symmetric Mouth: Normal oral and palatal mucosa present, oropharynx normal and moist mucous membranes Eyes General: appearance normal, both eyes and all related structures Neck Neck: Yes no lymphadenopathy and Yes supple Thyroid: other (Nonpalpable) Resp Auscultation: clear to auscultation bilaterally Cardio Other: S1-S2 present regular rate and rhythm GI Other: Normal bowel sounds, soft, nontender, no mass palpated General: Yes no CVA tenderness Back/Spine/Pelvis Back: no CVA tenderness and No back tenderness Skin General skin exam: no rashes or lesions noted Neuro General: gait normal, tone normal, moves all extremities, Normal light touch and pain sensation, no focal motor deficits and CN's II-XI intact bilaterally Cranial nerves: Yes Normal hearing present Gait exam (Neuro): Normal gait present Motor exam (neuro): 5/5 motor strength present throughout Sensory Exam: No Sensory deficit (Neuro) Extrem General: Yes full ROM, Yes no joint enlargement, Yes no pedal edema, Yes no calf tenderness and Yes normal gait Psych Appearance: grossly normal and well kempt Mental Status: mental status grossly normal Speech and movement: Normal speech and movement present Affect: normal affect Office Procedures Flu Questionnaire Does the patient have a severe egg allergy?: No Does the patient have severe life threatening allergies?: No Does the patient have a fever or illness today?: No Has the patient ever had Guillain-Fulshear Syndrome?: No Has the patient ever had any past reaction to a flu shot?: No Immunizations Fluarix [id number] (PF) 45 mcg (15 mcg x 3)/0.5 mL IM syringe Performing Provider: Bonnie Denton MD [place] [facility] Administered by: Joanne Arvizu CMA on 11/11/24 10:29 Dose Route Admin Location Dispensed Lot Number Expiration Date [facility] Solid Waste Technician 0.5 mL IM Left Deltoid 0.5 mL [id number] 08/04/25 26088-957-07 [employer] VIS Given Date VIS Provided VIS Publication Date 11/11/24 Single Vaccine 24 Eligibility Eligibility Date Funding Source Not VFC Eligible 11/11/24 Private Results Reviewed Results Reviewed: Name: Herrera Terrell Sr Age/Sex: 59/F : 1965 Unit#: [id number] Attend Dr: Bonnie Denton MD Re11/10/24 Status: DEP [facility] Disch: SPEC : [id number] GIA: 11/10/24 STATUS: COMP REQ : [id number] RECD: 11/10/[address]: Bonnie Denton MD COMP: 11/10/24 ENTERED: 11/10/[address]: ORDERED: Met Prof Fast, AST, ALT, Lipid Panel Test Result Flag Reference Sodium 139 135-145 mmol/L Potassium 3.8 3.3-5.1 mmol/L CL 107 96-108 mmol/L CO2 26 22-29 mmol/L Gap 10 L 12-20 BUN 16 9-16 mg/dL Creat 0.54 0.5-1.4 mg/dL eGFR > 60 Chronic Kidney Disease: Estimated GFR < 60 mL/min/1.73m2 Severe Kidney Disease: Estimated GFR < 15 mL/min/1.73m2 FBS 119 H 60-99 mg/dL A fasting glucose from 100-125 mg/dl is considered impaired (pre-diabetes). CA 9.0 8.4-10.2 mg/dL AST (GOT) 34 H 5-31 U/L ALT (GPT) 50 H 0-31 U/L Triglyceride 78 <150 mg/dL Desirable Triglyceride: less than 150 mg/dL Borderline High Triglyceride 150-199 mg/dL High Triglyceride: 200-499 mg/dL Very High Triglyceride: greater than or equal to 5OO mg/dL Cholesterol 144 <200 mg/dL Desirable Cholesterol: less than 200 mg/dL Borderline High Cholesterol: 200-239 mg/dL High Cholesterol: greater than 239 mg/dL LDL Calculated 86 <100 mg/dL Desirable LDL: less than 100 mg/dL Near Optimal/Above Optimal LDL: 110-129 mg/dL Borderline High LDL: 130-159 mg/dL High LDL: 160-189 mg/dL Very High LDL: greater than or equal to 190 mg/dL HDL 43 >40 mg/dL Desirable HDL: greater than 40 mg/dL Note: This HDL assay may give artificially low results in patients with liver disease. Laboratory Tests 03/21/24 11/10/24 07:00 07:13 Estimat Average Glucose 140 Hemoglobin A1c % 6.5 H Urine Creatinine 91.04 Urine Microalbumin 29.0 Microalb/Creat Ratio 31.8 H Coding Level of Care Code Est Pt Level 4 (35740) Complex EM visit Add On G2211 Diagnoses Diabetes mellitus with microalbuminuria, without long-term current use of insulin E11.29; R80.9 Hypercholesteremia E78.00 Osteoarthritis of lumbar spine M47.816 Assessment & Plan Assessment & Plan (1) Diabetes mellitus with microalbuminuria, without long-term current use of insulin: Code(s): E11.29 - Type 2 diabetes mellitus with other diabetic kidney complication; R80.9 - Proteinuria, unspecified Category: Medical Plan: Continue metformin 1000 mg twice a day with meals, reinforced importance of adhering to healthy eating habits and regular exercise at least 30 minutes of moderate intensity exercise 4 times a week. Up-to-date with her diabetes retinopathy screening tamoxifen vaccine given today. (2) Hypercholesteremia: Code(s): E78.00 - Pure hypercholesterolemia, unspecified Category: Medical Plan: Fasting lipids are within normal limits, continued on simvastatin 20 mg at bedtime (3) Osteoarthritis of lumbar spine: Code(s): M47.816 - Spondylosis without myelopathy or radiculopathy, lumbar region Category: Medical Plan: Takes tramadol as needed only for severe pain, refill sent Orders: Orders Lipid Panel 02/07/25 E11.29 - Type 2 diabetes mellitus with other diabetic kidney complication, E78.00 - Pure hypercholesterolemia, unspecified, R80.9 - Proteinuria, unspecified Aspartate Amino Transferase 02/07/25 E11.29 - Type 2 diabetes mellitus with other diabetic kidney complication, E78.00 - Pure hypercholesterolemia, unspecified, R80.9 - Proteinuria, unspecified Microalbumin, Random (w Creat) 02/07/25 E11.29 - Type 2 diabetes mellitus with other diabetic kidney complication, E78.00 - Pure hypercholesterolemia, unspecified, R80.9 - Proteinuria, unspecified Influenza [id number] Immunization 10/07/25 Z23 - Encounter for immunization Basic Metabolic Panel Fasting 02/07/25 E11.29 - Type 2 diabetes mellitus with other diabetic kidney complication, E78.00 - Pure hypercholesterolemia, unspecified, R80.9 - Proteinuria, unspecified Alanine Aminotransferase 02/07/25 E11.29 - Type 2 diabetes mellitus with other diabetic kidney complication, E78.00 - Pure hypercholesterolemia, unspecified, R80.9 - Proteinuria, unspecified Hemoglobin A1c 02/07/25 E11.29 - Type 2 diabetes mellitus with other diabetic kidney complication, E78.00 - Pure hypercholesterolemia, unspecified, R80.9 - Proteinuria, unspecified Medications: New tramadol 50 mg PO DAILY PRN 20 tabs 0RF yes
--- OUTSIDE RECORDS SUMMARY | 2024-11-11 10:28 | XMS_ITS | Encounter Summary ---
Author Organization [facility] Address [address] [place] [address] [place] [phone] Phone Care Team Providers Care Mechanical Service Technician Name Role Phone Bonnie Denton MD Primary Care Provider Encounter Details Date Type Department Care Team (Late st Contact Info) Description 05/01/2023 Transcribe Orders [facility] Specimen Processing [address] [place] [address] Bonnie Denton MD [facility] [place] [id number] Social History Tobacco Use Types Packs/Day Years [...] AM EST Office Visit [facility] [address] [place] [address] Jean Claude Samuels DO [address] [place] [address] [email or web address] documented as of this encounter Visit Diagnoses Not on filedocumented in this encounter Care Teams Mechanical Service Technician Relationship Specialty Start Date End Date Bonnie Denton MD [address] [facility] [place] [id number] PCP - General Internal Medicine 10/25/22 documented as of this encounter Additional Source Comments The information contained in this document represents components of the legal health record. It is not the complete legal health record.[facility]
--- OUTSIDE RECORDS SUMMARY | 2024-11-11 10:28 | XMS_ITS | Clinical Summary ---
Author Organization [facility] Address [address] [place] [phone] Phone Care Team Providers Care Ash Kier Boiler Name Role Phone Bonnie Denton MD Primary [...] suggested that she can talk to her intervention teacher regarding use which will be beneficial as [...] PM EDT): The ultrasound was done at [facility] on 11/22/2023. Is going to take another [...] around 10/11/2023 this should be done at [facility]. Assessment & Plan (04/26/2023 9:28 AM EDT): [...] She should have the ultrasound done at [facility] where it was done. Assessment & Plan [...] evaluation of osteopenia/osteoporosis. Will do this at [facility]. Family History Medical History Relation Comments Atrial [...] 8:30 AM EST Office Visit [facility] [address] [place] [phone] Jean Claude Samuels DO [address] [place] [phone] [email or web address] Health Maintenance Due Date [...] EDT) SODIUM 138 133 - 146 mmol/L [facility] POTASSIUM 3.8 3.3 - 5.1 mmol/L [facility] CHLORIDE 101 96 - 108 mmol/L [facility] CO2 25 21 - 35 mmol/L [facility] BUN 11 6 - 19 mg/dL [facility] CREATININE 0.50 0.5 - 1.5 mg/dL [facility] GLUCOSE 188(H) 70 - 99 mg/dL [facility] ALBUMIN 4.2 3.9 - 4.8 g/dL [facility] TOTAL PROTEIN 7.4 6.5 - 8.0 g/dL [facility] CALCIUM 8.9 8.4 - 10.3 mg/dL [facility] ALKALINE PHOSPHATASE 78 39 - 117 U/L [facility] TOTAL BILIRUBIN 0.4 0.0 - 1.2 mg/dL [facility] AST 25 0 - 37 U/L [facility] ALT 50(H) 0 - 40 U/L [facility] GLOBULIN 3.2 1 - 4.8 g/dL [facility] EGFR 108 >59 mL/min/1.7 3m2 [facility] Comment:Estimated glomerular filtration rate calculated using the CKD-EPI refit equation. ANION GAP 16 10 - 20 mmol/L [facility] Blood 11/13/2023 8:44 AM EDT 11/13/2023 8:51 AM EDT Jean Claude Samuels DO LAB BLOOD ORDERABLES Final Resul t [facility] [address] [place] [address] * (ABNORMAL) Outside Glucose,Fasting (01/20/2023) Glucose, fasting - External 147(A) 65 - 99 mg/dL Historical Provider MD LAB BLOOD ORDERABLES Catherine l Result * (ABNORMAL) Outside HDL (01/20/2023) HDL - External 38(A) 40 - 80 mg/dL Historical Provider MD LAB BLOOD ORDERABLES Catherine l Result from Last 3 Months or Most Recently Relevant to Health Maintenance Insurance [facility] ACO ACO ACO ACO ACO ACO Care Teams Ash Kier Boiler Relationship Specialty Start Date End Date Bonnie Denton MD [facility] [place] [address] PCP - General Internal Medicine 10/25/22 Additional Source Comments The information contained in this document represents components of the legal health record. It is not the complete legal health record.[facility]
--- OUTSIDE RECORDS SUMMARY | 2024-11-11 10:28 | XMS_ITS | Encounter Summary ---
Author Organization [facility] Address [address] [place] [address] [place] [phone] Phone Care Team Providers Care Log Roper Name Role Phone Bonnie Denton MD Primary Care Provider Encounter Details Date Type Department Care Team (Late st Contact Info) Description 02/16/2023 Procedure Pass [facility] Interventional Radiology [address] [place] [address] Social History Tobacco Use Types Packs/Day Years [...] 8:30 AM EST Office Visit [facility] [address] [place] [address] [place] [address] Jean Claude Samuels DO [address] [place] [phone] [email or web address] documented as of this encounter Visit Diagnoses Not on filedocumented in this encounter Care Teams Log Roper Relationship Specialty Start Date End Date Bonnie Denton MD 1962 [facility] [place] [id number] PCP - General Internal Medicine 10/25/22 documented as of this encounter Additional Source Comments The information contained in this document represents components of the legal health record. It is not the complete legal health record.[facility]
== END 2024-11-11 10:31 | disposition home or self-care (01) ==
LOC: HO.HMCC 09:22
PROVIDERS: PCP Internal Medicine; Visit Provider Internal Medicine
DX: E11.29 Type 2 diabetes mellitus with other diabetic kidney complication (principal); R80.9 Proteinuria, unspecified; E78.00 Pure hypercholesterolemia, unspecified; M47.816 Spondylosis without myelopathy or radiculopathy, lumbar region

== ENCOUNTER → 2024-11-11 09:21 | Outpatient (BNVA) | payer OTHER, SELFPAY | PROVIDERS: PCP Internal Medicine; Visit Provider Internal Medicine | DX: I10 Essential (primary) hypertension (principal); E11.29 Type 2 diabetes mellitus with other diabetic kidney complication; R80.9 Proteinuria, unspecified; E78.00 Pure hypercholesterolemia, unspecified; M47.816 Spondylosis without myelopathy or radiculopathy, lumbar region; Z23 Encounter for immunization; Z79.84 Long term (current) use of oral hypoglycemic drugs; Z79.899 Other long term (current) drug therapy | CPT/HCPCS: 90471; 90656; 99212 ==

== ENCOUNTER 2024-11-23 14:00 | Emergency (ER) | payer OTHER, SELFPAY ==
--- NOTE | ~2024-11-23 | XR_ITS ---
CLINICAL HISTORY: fall, pain worse on left than right 4 view, chest and bilateral ribs Comparison: CR/SR - XR CHEST 2 VIEWS - 10/10/22 22:19 EDT Findings: Left-sided Port-A-Cath has been removed since prior study. No pneumothorax. Marker is placed at the patient's site of pain. This is along the inferior aspect of the left ribs. No rib fractures identified. No pneumothorax or pleural effusion. IMPRESSION: 1. No acute fractures. This document has been electronically signed by: Vince Reagan MD on 11/23/2024 15:33:32
--- NOTE | 2024-11-23 14:35 | ED_ITS ---
HPI - General Adult General Chief complaint: Fall Stated complaint: Fall pain on her ribs Time Seen by Provider: 11/23/24 16:18 Source: patient, RN notes reviewed and old records reviewed Mode of arrival: ambulatory Limitations: no limitations History of Present Illness ED Provider: Evy HPI narrative: Patient is a 59 year-old female with pmhx of DM presenting to the emergency department reporting a trip and fall 6 days ago onto left side. States that she tripped over a box. Having ongoing left rib pain, unable to lay on that side. Had to lay on the floor a few minutes after the fall, saw stars, but after a few minutes that improved. She was able to call another sister for help right away, denies loss of consciousness. She is not anticoagulated. Only complaint currently is bilateral rib pain, left worse than right. complaint: rib pain Onset (ago): day(s) Related Data Previous Rx's ?Medication ?Instructions ?Recorded lancets 28 gauge #100 ea 09/28/23 blood sugar diagnostic (FreeStyle See Rx Instructions .Route BID 06/10/24 Lite Strips) #200 ea cholecalciferol (vitamin D3) 50 50 mcg PO DAILY #90 ca ps 06/10/24 mcg (2,000 unit) capsule lisinopril 5 mg tablet 5 mg PO DAILY #90 tabs 06/10 metformin 1,000 mg tablet 1,000 mg PO BIDWMEAL 3 month s #180 06/10/24 tabs simvastatin 20 mg tablet 20 mg PO BEDTIME #90 tabs tramadol 50 mg tablet 50 mg PO DAILY PRN yes #20 t abs 11/11/24 lidocaine 5 % topical patch 2 patch topical DAILY #30 ea 11/23/24 Allergies Allergy/AdvReac Type Severity Reaction Status Date / Time omeprazole (OMEPRAZOLE) AdvReac Intermediate HEADACHE, Verified 11/23/24 14:43 DIARRHEA Review of Systems Review of Systems: As per HPI Yes all other systems are reviewed and are negative Constitutional: Constitutional: Reports as per HPI [facility] Past Medical History Medical History History of adenomatous polyp of colon Diabetes mellitus with microalbuminuria, without long-term current use of insulin Osteopenia Left thyroid nodule Mass of left lower extremity History of infiltrating ductal carcinoma of breast Sciatica of right side Menopause 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 Sister Breast cancer Sister High blood pressure Social History Social History Household Members: Other Household Members Other:: Lives in a rastafarian community Housing: Other Housing Other:: community Are you a primary client care consultant to a significant other at home: No Do you presently have visiting nurse or other home services: No Alcohol intake: never Patient Tobacco Use Status: Never used Tobacco e-Cigarette/Vaping Use: Never Used Do you have a plan to hurt others: No Plan service: No Current occupational status: employed Cognitive needs: No Hearing needs: No Vision needs: Yes Physical Exam ED Vital Signs: Vital Signs - 24 hr 11/23/24 14:36 Temperature 98.3 F Pulse Rate 89 Respiratory Rate 16 Blood Pressure 153/72 H Pulse Oximetry 99 Oxygen Delivery Method Room Air BMI result Body Mass Index 24.7 Vital signs have been reviewed and appear to be correct. Blood pressure normal. Heart rate normal. Respiratory rate normal. Temperature normal. Oxygen saturation normal. Const General: cooperative, healthy appearing and no acute distress Orientation/consciousness: oriented to person, oriented to place, oriented to time and patient oriented x3 Limitations: no limitations HENNM Head: Yes normocephalic and Yes atraumatic Ears: external ears normal General nose exam: Normal external nose present Face and sinus: Yes face symmetric Mouth: oropharynx normal and moist mucous membranes Throat: Yes uvula midline Eyes Pupils: Equal, round and reactive pupils present Neck Neck: Yes normal visual inspection and Yes supple Chest Chest palpation & inspection: tenderness rib left mid-axillary line involving the 10th rib, involving the 11th rib and involving the 12th rib Resp Effort & Inspection: normal respiratory effort and able to speak in complete sentences Auscultation: clear to auscultation bilaterally Cardio Rate: regular rate Rhythm: regular rhythm Heart sounds: S1 normal heart sound present and S2 normal heart sound present GI Palpation (GI): Soft to palpation and nontender Auscultation: normoactive bowel sounds General: Yes no CVA tenderness Back/Spine/Pelvis Back: no CVA tenderness Skin General skin exam: elasticity normal and turgor normal Neuro General: oriented to person, oriented to place, oriented to time, patient bentley ented x3, moves all extremities, no focal motor deficits and CN's II-XI intact bilaterally Cranial nerves: Yes Equal, round and reactive pupils present Cognition (Neuro): normal cognition Extrem General: Yes full ROM, Yes no pedal edema and Yes no calf tenderness Psych Mental Status: mental status grossly normal Affect: normal affect Thought process: Normal thought process present Course Course Course Narrative: This is a rapid medical exam performed by Jose R Ratliff NP: Additional HPI, ROS, PE not included below will be deferred to primary provider. Patient is a 59y/o F with pmhx of DM presenting to the emergency department reporting a trip and fall 6 days ago onto left side. Having ongoing left rib pain, unable to lay on that side. Had to lay on the floor a few minutes, saw stars, but after a few minutes that improved. She was able to call another sister for help right away. She is not anticoagulated. Plan: xray ribs Medical Decision Making Medical Decision Making [facility] Narrative: Patient is a 59 year-old female with pmhx of DM presenting to the emergency department reporting a trip and fall 6 days ago onto left side. On exam patient is awake, A+Ox3, VS WNL, afebrile, normal neurological exam without focal deficits, physical exam findings as above. Given reported symptoms and physical exam findings, initial differential includes but is not limited to rib contusion versus fracture. Unlikely pneumothorax. X-ray bilateral ribs notable for no evidence of rib fracture or ptx. My interpretation is in agreement with the radiologist's interpretation. Results discussed with patient and all questions answered. Patient provided with incentive spirometer and teaching to prevent pneumonia. Will send prescription for topical lidocaine patches. Also advised Tylenol and ibuprofen. Follow up with PCP as needed. Return precautions discussed. Patient verbalized understanding of and agreement with plan. Differential Diagnosis Differential Diagnoses: The differential diagnosis associated with the presentation includes As per [facility] Admission/Observation Consideration of admission/observation: Escalation of care including admission/observation considered Patient would have been admitted to the hospital and transferred to appropriate facility had their clinical presentation warranted hospital admission. Independent Interpretation I performed an independent interpretation of an: Plain X-Ray Interpretation: X-ray bilateral ribs notable for no evidence of rib fracture or ptx. Radiology Impression Discussion of test interpretation with radiology: I have reviewed the radiologist's reading. Radiologist Impression: 4 view, chest and bilateral ribs Comparison: CR/SR - XR CHEST 2 VIEWS - 10/10/22 22:19 EDT Findings: Left-sided Port-A-Cath has been removed since prior study. No pneumothorax. Marker is placed at the patient's site of pain. This is along the inferior aspect of the left ribs. No rib fractures identified. No pneumothorax or pleural effusion. IMPRESSION: 1. No acute fractures. External Record Review External record reviewed: Inpatient record, Office record and Outpatient record Prescription Management I considered prescription management with: Pain Medication Discharge Plan Discharge Clinical Impression: Bilateral contusion of ribs Patient Disposition: Home, Self-Care Instructions: Lidocaine Patch (On the skin), How to Use an Incentive Spirometer (ED), Rib Contusion (ED) Additional Instructions: You were evaluated in the emergency department today for rib pain after a fall. Your x-rays did not show evidence of any rib fractures. Your pain is likely due to contusions/bruises to your ribs. This pain can take several weeks to improve. We recommend that you take 650 mg of Tylenol or 400 mg of ibuprofen every 6 hours as needed for pain. If necessary, you can alternate these medications every 3 hours. For example, at 9:00 a.m. take Tylenol, then at noon take ibuprofen, then at 3:00 p.m. take Tylenol, etc.. You have been prescribed topical lidocaine patches which you can apply to the painful areas for up to 12 hours in a 24 hour period. Do not apply heat directly over the patches. You have been provided with an incentive spirometer to encourage you to take deep breaths which will prevent pneumonia. Use this as directed. Follow up with your primary care provider as needed. Return to the emergency department if you develop worsening pain, shortness of breath or difficulty breathing, fever or any other new or concerning symptoms. Prescriptions: New lidocaine 5 % adhesive patch,medicated 2 patch topical DAILY Qty: 30 0RF Rx Instructions: leave on most painful area for up to 12 hrs No Action (DME) lancets 28 gauge misc See Rx Instructions topical BID Qty: 100 6RF Rx Instructions: Check blood sugar twice a day before meals FreeStyle Lite Strips Strip See Rx Instructions .ROUTE BID Qty: 200 4RF Rx Instructions: Check Blood sugar 2 times a day; cholecalciferol (vitamin D3) 50 mcg (2,000 unit) capsule 50 mcg PO DAILY Qty: 90 1RF lisinopril 5 mg tablet 5 mg PO DAILY Qty: 90 4RF metformin 1,000 mg tablet 1,000 mg PO BIDWMEAL 90 Days Qty: 180 4RF simvastatin 20 mg tablet 20 mg PO BEDTIME Qty: 90 4RF tramadol 50 mg tablet 50 mg PO DAILY PRN (Reason: yes) Qty: 20 0RF Print Language: Afghan
[2024-11-23 14:36] VITALS: BP 153/72; PULSE 89; RESP 16; TEMP 36.8; O2SAT 99; BMI 24.7
[2024-11-23 16:31] VITALS: BP 153/72; PULSE 89; RESP 16; TEMP 36.8; O2SAT 99
--- OUTSIDE RECORDS SUMMARY | 2024-11-23 16:32 | XMS_ITS | Clinical Summary ---
Author Organization [facility] Address [address] [place] [phone] Phone Care Team Providers Care Sales Officer Name Role Phone Bonnie Denton MD Primary [...] suggested that she can talk to her linter saw sharpener regarding use which will be beneficial as [...] PM EDT): The ultrasound was done at [facility] on 11/22/2023. Is going to take [...] around 10/11/2023 this should be done at [facility]. Assessment & Plan (04/26/2023 9:28 AM [...] She should have the ultrasound done at [facility] where it was done. Assessment & [...] evaluation of osteopenia/osteoporosis. Will do this at [facility]. Family History Medical History Relation Comments [...] 8:30 AM EST Office Visit [facility] [address] [place] [phone] Jean Claude Samuels DO [address] [place] [address] [email or web address] Health Maintenance Due Date Last Done Comments [...] EDT) SODIUM 138 133 - 146 mmol/L [facility] POTASSIUM 3.8 3.3 - 5.1 mmol/L [facility] CHLORIDE 101 96 - 108 mmol/L [facility] CO2 25 21 - 35 mmol/L [facility] BUN 11 6 - 19 mg/dL [facility] CREATININE 0.50 0.5 - 1.5 mg/dL [facility] GLUCOSE 188(H) 70 - 99 mg/dL [facility] ALBUMIN 4.2 3.9 - 4.8 g/dL [facility] TOTAL PROTEIN 7.4 6.5 - 8.0 g/dL [facility] CALCIUM 8.9 8.4 - 10.3 mg/dL [facility] ALKALINE PHOSPHATASE 78 39 - 117 U/L [facility] TOTAL BILIRUBIN 0.4 0.0 - 1.2 mg/dL [facility] AST 25 0 - 37 U/L [facility] ALT 50(H) 0 - 40 U/L [facility] GLOBULIN 3.2 1 - 4.8 g/dL [facility] EGFR 108 >59 mL/min/1.7 3m2 [facility] Comment:Estimated glomerular filtration rate calculated using the CKD-EPI refit equation. ANION GAP 16 10 - 20 mmol/L [facility] Blood 11/13/2023 8:44 AM EDT 11/13/2023 8:51 AM EDT Jean Claude Samuels DO LAB BLOOD ORDERABLES Final Resul t [facility] [address] [place] [address] * (ABNORMAL) Outside Glucose,Fasting (01/20/2023) Glucose, fasting - External 147(A) 65 - 99 mg/dL Historical Provider MD LAB BLOOD ORDERABLES Catherine l Result * (ABNORMAL) Outside HDL (01/20/2023) HDL - External 38(A) 40 - 80 mg/dL Historical Provider MD LAB BLOOD ORDERABLES Catherine l Result from Last 3 Months or Most Recently Relevant to Health Maintenance Insurance [facility] ACO ACO ACO ACO ACO ACO Care Teams Sales Officer Relationship Specialty Start Date End Date Bonnie Denton MD [facility] [place] [address] PCP - General Internal Medicine 10/25/22 Additional Source Comments The information contained in this document represents components of the legal health record. It is not the complete legal health record.[facility]
--- OUTSIDE RECORDS SUMMARY | 2024-11-23 16:32 | XMS_ITS | Encounter Summary ---
Author Organization [facility] Address [address] [place] [address] [place] [phone] Phone Care Team Providers Care Paper Spooler Name Role Phone Bonnie Denton MD Primary Care Provider Encounter Details Date Type Department Care Team (Late st Contact Info) Description 02/16/2023 Procedure Pass [facility] [address] [place] [address] Social History Tobacco Use Types Packs/Day Years [...] 8:30 AM EST Office Visit [facility] [address] [place] [address] [place] [address] Jean Claude Samuels DO [address] [place] [phone] [email or web address] documented as of this encounter Visit Diagnoses Not on filedocumented in this encounter Care Teams Paper Spooler Relationship Specialty Start Date End Date Bonnie Denton MD [address] [facility] [place] [address] PCP - General Internal Medicine 10/25/22 documented as of this encounter Additional Source Comments The information contained in this document represents components of the legal health record. It is not the complete legal health record.[facility]
--- OUTSIDE RECORDS SUMMARY | 2024-11-23 16:32 | XMS_ITS | Encounter Summary ---
Author Organization [facility] Address [address] [place] [address] [place] [phone] Phone Care Team Providers Care Drag Seiner Name Role Phone Bonnie Denton MD Primary Care Provider Encounter Details Date Type Department Care Team (Late st Contact Info) Description 05/01/2023 Transcribe Orders [facility] Specimen Processing [address] [place] [address] Bonnie Denton MD [facility] [place] [address] Social History Tobacco Use Types Packs/Day Years [...] AM EST Office Visit [facility] [address] [place] [address] Jean Claude Samuels DO [address] [place] [address] [email or web address] documented as of this encounter Visit Diagnoses Not on filedocumented in this encounter Care Teams Drag Seiner Relationship Specialty Start Date End Date Bonnie Denton MD [address] [facility] [place] [address] PCP - General Internal Medicine 10/25/22 documented as of this encounter Additional Source Comments The information contained in this document represents components of the legal health record. It is not the complete legal health record.[facility]
== END 2024-11-23 16:32 | disposition home or self-care (01) ==
PROVIDERS: Emergency Provider Student in an Organized Health Care Education/Training Program; PCP Internal Medicine
DX: S20.212A Contusion of left front wall of thorax, initial encounter (principal); W01.0XXA Fall on same level from slipping, tripping and stumbling without subsequent striking against object, initial encounter; Y93.9 Activity, unspecified; Y92.9 Unspecified place or not applicable; E11.9 Type 2 diabetes mellitus without complications
CPT/HCPCS: 71111; 99282; 99283

== ENCOUNTER → 2024-11-23 14:40 | Outpatient (BNV) | payer OTHER, SELFPAY | PROVIDERS: PCP Internal Medicine; Visit Provider Radiology Diagnostic Radiology | DX: R07.89 Other chest pain (principal); W19.XXXA Unspecified fall, initial encounter | CPT/HCPCS: 71111 ==

== ENCOUNTER 2024-12-09 13:10 | Outpatient (REF) | payer OTHER, SELFPAY ==
--- OUTSIDE RECORDS SUMMARY | 2024-12-09 16:08 | XMS_ITS | Encounter Summary ---
Author Organization [facility] Address [address] [place] [address] [place] [phone] Phone Care Team Providers Care Dowel Inspector Name Role Phone Bonnie Denton MD Primary Care Provider Encounter Details Date Type Department Care Team (Late st Contact Info) Description 05/01/2023 Transcribe Orders [facility] Specimen Processing [address] [place] [address] Bonnie Denton MD [facility] [place] [address] Social History Tobacco Use Types Packs/Day Years [...] AM EST Office Visit [facility] [address] [place] [address] Jean Claude Samuels DO [address] [place] [address] [email or web address] documented as of this encounter Visit Diagnoses Not on filedocumented in this encounter Care Teams Dowel Inspector Relationship Specialty Start Date End Date Bonnie Denton MD [address] [facility] [place] [address] PCP - General Internal Medicine 10/25/22 documented as of this encounter Additional Source Comments The information contained in this document represents components of the legal health record. It is not the complete legal health record.[facility]
--- OUTSIDE RECORDS SUMMARY | 2024-12-09 16:08 | XMS_ITS | Encounter Summary ---
Author Organization [facility] Address [address] [place] [address] [place] [phone] Phone Care Team Providers Care Nursing Consultant Name Role Phone Bonnie Denton MD Primary Care Provider Encounter Details Date Type Department Care Team (Late st Contact Info) Description 02/16/2023 Procedure Pass [facility] [address] [place] [address] Social History Tobacco Use Types Packs/Day Years [...] 8:30 AM EST Office Visit [facility] [address] [place] [address] [place] [address] Jean Claude Samuels DO [address] [place] [address] [email or web address] documented as of this encounter Visit Diagnoses Not on filedocumented in this encounter Care Teams Nursing Consultant Relationship Specialty Start Date End Date Bonnie Denton MD [address] [facility] [place] [address] PCP - General Internal Medicine 10/25/22 documented as of this encounter Additional Source Comments The information contained in this document represents components of the legal health record. It is not the complete legal health record.[facility]
--- OUTSIDE RECORDS SUMMARY | 2024-12-09 16:08 | XMS_ITS | Clinical Summary ---
Author Organization [facility] Address [address] [place] [phone] Phone Care Team Providers Care Rough Carpenter Name Role Phone Bonnie Denton MD Primary [...] suggested that she can talk to her branch lead regarding use which will be beneficial as [...] PM EDT): The ultrasound was done at [facility] on 11/22/2023. Is going to take [...] around 10/11/2023 this should be done at [facility]. Assessment & Plan (04/26/2023 9:28 AM [...] She should have the ultrasound done at [facility] where it was done. Assessment & Plan [...] evaluation of osteopenia/osteoporosis. Will do this at [facility]. Family History Medical History Relation Comments [...] 8:30 AM EST Office Visit [facility] [address] [place] [address] Jean Claude Samuels DO [address] [place] [phone] [email or web address] Health Maintenance Due Date Last Done Comments [...] Date/Time Associated Diagnosis Comments COMPREHENSIVE METABOLIC PANEL (CMP) Routine 11/13/2023 8:44 AM EDT Osteopenia of lumbar spine OUTSIDE HDL Routine 01/20/2023 OUTSIDE GLUCOSE FASTING Routine 01/20/2023 from Last 3 Months or Most Recently Relevant to Health Maintenance Results * (ABNORMAL) Comprehensive metabolic panel (11/13/2023 8:44 AM EDT) SODIUM 138 133 - 146 mmol/L [facility] POTASSIUM 3.8 3.3 - 5.1 mmol/L [facility] CHLORIDE 101 96 - 108 mmol/L [facility] CO2 25 21 - 35 mmol/L [facility] BUN 11 6 - 19 mg/dL [facility] CREATININE 0.50 0.5 - 1.5 mg/dL [facility] GLUCOSE 188(H) 70 - 99 mg/dL [facility] ALBUMIN 4.2 3.9 - 4.8 g/dL [facility] TOTAL PROTEIN 7.4 6.5 - 8.0 g/dL [facility] CALCIUM 8.9 8.4 - 10.3 mg/dL [facility] ALKALINE PHOSPHATASE 78 39 - 117 U/L [facility] TOTAL BILIRUBIN 0.4 0.0 - 1.2 mg/dL [facility] AST 25 0 - 37 U/L [facility] ALT 50(H) 0 - 40 U/L [facility] GLOBULIN 3.2 1 - 4.8 g/dL [facility] EGFR 108 >59 mL/min/1.7 3m2 [facility] Comment:Estimated glomerular filtration rate calculated using the CKD-EPI refit equation. ANION GAP 16 10 - 20 mmol/L [facility] Blood 11/13/2023 8:44 AM EDT 11/13/2023 8:51 AM EDT Jean Claude Samuels DO LAB BLOOD BKR ORDERABLES Final R esult [facility] [address] [place] [address] * (ABNORMAL) Outside Glucose,Fasting (01/20/2023) Glucose, fasting - External 147(A) 65 - 99 mg/dL Historical Provider LAB BLOOD ORDERABLES Catherine l Result * (ABNORMAL) Outside HDL (01/20/2023) HDL - External 38(A) 40 - 80 mg/dL Historical Provider MD LAB BLOOD ORDERABLES Catherine l Result from Last 3 Months or Most Recently Relevant to Health Maintenance Insurance [facility] ACO ACO [place] [address] [place] [address] ACO ACO Care Teams Rough Carpenter Relationship Specialty Start Date End Date Bonnie Denton MD [address] [facility] [place] [address] PCP - General Internal Medicine 10/25/22 Additional Source Comments The information contained in this document represents components of the legal health record. It is not the complete legal health record.[facility]
[2024-12-09 17:47] LABS: Appearance Urine Clear; Glucose Urine UA Negative (Negative); PH 5.5 (5.0-9.0); Specific Gravity - Urine 1.020 (1.005-1.025); UMIC TRIGGER UA YES
== END 2024-12-09 13:11 | disposition home or self-care (01) ==
LOC: HO.HMGCLDS 13:10
PROVIDERS: PCP Internal Medicine; Visit Provider Internal Medicine
DX: R30.0 Dysuria (principal)
CPT/HCPCS: 81001; 87086; 87088; 87186

== ENCOUNTER 2024-12-29 08:03 | Outpatient (AMB) | payer OTHER, SELFPAY ==
--- NOTE | 2024-12-29 08:04 | MHC.OFFVIS ---
Vital Signs 12/29/24 08:12 Height 5 ft 8 in Weight 165 lb BMI 25.1 BP 132/78 Blood Pressure Location Rt brachial Position Sitting Pulse 78 Pulse Source Pulse Oximeter Pulse Oximetry (%) 98 Oxygen Delivery Method Room Air Intake Visit Reasons: colo rescreen Intake Note: Returning pt for recall colo screening. Last colo 2020 w/ hx of TA Polypectomy CC: Pt denies any GI sx or concerns at this time. [employer] Required: No Accompanied by: Self / Same As Patient Allergies omeprazole (OMEPRAZOLE) Adverse Reaction (Intermediate, Verified 12/29/24 08:05) HEADACHE, DIARRHEA HPI HPI colo rescreen: Details: LAST VISIT: 02/13/2020 Status post colonoscopy Plan 54-year-old female here today for post colonoscopy visit. As mentioned above in HPI patient had 3 small polyps measuring less than 1/2 cm. Cecal polyp measuring 0.3 cm was identified as a sessile serrated polyp. Case discussed with Dr. Caldwell, recommendation was made to repeat colonoscopy in 5 years. Results discussed with patient. She verbalizes understanding. Patient was instructed to call us if she will see: change in her stools, have unintentional weight loss, melena or blood in her stool. Patient is agreeable to plan of care. She was given the opportunity to ask questions and all questions answered. We will see her in 5 years for recall colonoscopy, sooner on an as-needed basis. ? TODAY'S VISIT Patient is here today discuss going for colonoscopy. Last colonoscopy was 5 years ago, sessile polyps found. Recommendation was made for patient to return in 5 years. Patient denies any melena, hematochezia, unintentional weight loss or ribbon like stools. Patient denies any dyspepsia, dysphagia or odynophagia. Patient reports that she has been feeling well since last visit. Patient had no issues with anesthesia. No history of sleep apnea. Not on any anticoagulation medication periods patient denies any GI concerning symptoms today. 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 Sister Breast cancer Sister High blood pressure Social History Household Members: Other Household Members Other:: Lives in a alevism community Housing: Other Housing Other:: community Are you a primary after school caregiver to a significant other at home: No Do you presently have visiting nurse or other home services: No Alcohol intake: never Patient Tobacco Use Status: Never used Tobacco e-Cigarette/Vaping Use: Never Used Advance Directives Date on File: 06/10/24 service: No Current occupational status: employed Cognitive needs: No Hearing needs: No Vision needs: Yes Review of Systems Const Denies weight gain and Denies weight loss ENT Reports no additional complaints, Denies dysphagia and Denies odynophagia Card Reports no additional complaints Resp Reports no additional complaints GI Denies abdominal pain, Denies belching, Denies melena, Denies bloating, Denies change in bowel habits, Denies dysphagia, Denies excessive flatus, Denies dyspepsia, Denies heartburn, Denies diarrhea, Denies loose stools, Denies nausea, Denies odynophagia and Denies vomiting Musc Reports no additional complaints Neuro Reports no additional complaints Psych Reports no additional complaints Endo Reports no additional complaints Physical Exam Const General: healthy appearing, no acute distress and well developed Nutritional Appearance: well nourished Orientation/consciousness: patient oriented x3 Resp Effort & Inspection: normal respiratory effort, able to speak in complete sentences, no tracheal deviation and symmetric chest movement Auscultation: clear to auscultation bilaterally Cardio Rate: regular rate GI Inspection: Yes normal to inspection and No distended Palpation (GI): Soft to palpation, not firm, nontender and No hepatosplenomegaly present Auscultation: normal bowel sounds General: Yes no CVA tenderness Back/Spine/Pelvis Back: no CVA tenderness Skin General skin exam: elasticity normal, turgor normal and dry skin Neuro General: patient oriented x3 Psych Appearance: grossly normal Mental Status: mental status grossly normal Assessment & Plan Assessment & Plan (1) History of adenomatous polyp of colon: Code(s): Z86.0101 - Personal history of adenomatous and serrated colon polyps Category: Medical (2) Encounter for screening for malignant neoplasm of colon: Code(s): Z12.11 - Encounter for screening for malignant neoplasm of colon Category: Medical Plan Patient denies any GI, cardiac or respiratory symptoms.? Denies any issues with anesthesia in the past.? Denies any history of sleep apnea.? No history infectious diseases in the past or present.? Not on any anticoagulation therapy.? No family history of colon cancer.? Patient denies melena, hematochezia, unintentional weight loss or ribbon like stools.? Discussed at length the pre-procedure,? prep, diet & medications as well as what to expect prior, during and after the procedure.?? Stressed the importance of good bowel prep.? Recommended the use of Vaseline or Calmoseptine OTC & baby wipes with bowel movements to promote comfort.? ?Patient verbalizes understanding and agrees to plan of care.? She was given the opportunity to ask questions and all questions answered.? We will see her after the procedure.? Orders: Referrals GI Procedure Notification Z12.11 - Encounter for screening for malignant neoplasm of colon Medications: New bisacodyl (Dulcolax (bisacodyl)) take 4 tabs at noon the day before your colonoscopy 20 mg (4 x 5 mg) PO ONCE 4 tabs 0RF constipation 1 day Z12.11 - Encounter for screening for malignant neoplasm of colon polyethylene glycol 3350 (Miralax) As directed by gastroenterology department at [facility] 238 grams PO ONCE 238 grams 0RF Z12.11 - Encounter for screening for malignant neoplasm of colon Coding Level of Care Code New Pt Level 3 (92309) Diagnoses History of adenomatous polyp of colon Z86.0101 Encounter for screening for malignant neoplasm of colon Z12.11 Time Spent (min) 40 Comment 30 minutes spent with patient and additional 10 minutes spent reviewing her records
--- OUTSIDE RECORDS SUMMARY | 2024-12-29 08:09 | XMS_ITS | Encounter Summary ---
Author Organization [facility] Address [address] [place] [address] [place] [id number] Phone Care Team Providers Care Credit Resolution Representative Name Role Phone Bonnie Detnon MD Primary Care Provider Encounter Details Date Type Department Care Team (Late st Contact Info) Description 02/16/2023 Procedure Pass [facility] [address] [place] [address] Social History Tobacco Use Types Packs/Day Years [...] 8:30 AM EST Office Visit [facility] [address] [place] [address] [place] [address] Jean Claude Samuels DO [address] [place] [phone] [email or web address] documented as of this encounter Visit Diagnoses Not on filedocumented in this encounter Care Teams Credit Resolution Representative Relationship Specialty Start Date End Date Bonnie Denton MD [address] [facility] [place] [address] PCP - General Internal Medicine 10/25/22 documented as of this encounter Additional Source Comments The information contained in this document represents components of the legal health record. It is not the complete legal health record.[facility]
--- OUTSIDE RECORDS SUMMARY | 2024-12-29 08:10 | XMS_ITS | Encounter Summary ---
Author Organization [facility] Address [address] [place] [address] [place] [id number] Phone Care Team Providers Care Medical Data Entry Clerk Name Role Phone Bonnie Denton MD Primary Care Provider Encounter Details Date Type Department Care Team (Late st Contact Info) Description 05/01/2023 Transcribe Orders [facility] Specimen Processing [address] [place] [address] Bonnie Denton MD [facility] [place] [id number] Social History Tobacco Use Types Packs/Day Years [...] AM EST Office Visit [facility] [address] [place] [address] Jean Claude Samuels DO [address] [place] [address] [email or web address] documented as of this encounter Visit Diagnoses Not on filedocumented in this encounter Care Teams Medical Data Entry Clerk Relationship Specialty Start Date End Date Bonnie Denton MD [address] [place] [address] PCP - General Internal Medicine 10/25/22 documented as of this encounter Additional Source Comments The information contained in this document represents components of the legal health record. It is not the complete legal health record.[facility]
[2024-12-29 08:12] VITALS: BP 132/78; PULSE 78; O2SAT 98; BMI 25.1
== END 2024-12-29 08:53 | disposition home or self-care (01) ==
LOC: HO.HGI 08:04
PROVIDERS: PCP Internal Medicine; Visit Provider Nurse Practitioner Family
DX: Z01.818 Encounter for other preprocedural examination (principal); Z12.11 Encounter for screening for malignant neoplasm of colon; Z86.0101 Personal history of adenomatous and serrated colon polyps
CPT/HCPCS: 99203

== ENCOUNTER → 2024-12-29 08:03 | Outpatient (BNVA) | payer OTHER, SELFPAY | PROVIDERS: PCP Internal Medicine; Visit Provider Nurse Practitioner Family | DX: Z01.818 Encounter for other preprocedural examination (principal); Z86.0101 Personal history of adenomatous and serrated colon polyps | CPT/HCPCS: 99202 ==